=== PATIENT | male | born 1965 | race Caucasian/White ===

== ENCOUNTER 2023-07-08 12:57 | Emergency (ER) | payer BC, SELFPAY ==
[2023-07-08 13:01] VITALS: BP 167/102; PULSE 87; RESP 18; TEMP 36.6; O2SAT 98
--- NOTE | 2023-07-08 13:30 | DI.CT_ITS ---
Exam(s) CT ABDOMEN PELVIS WO EXAM: CT ABDOMEN PELVIS WO CLINICAL HISTORY: flank pain with hematuria. TECHNIQUE: Imaging Protocol: Axial computed tomography images with coronal and sagittal reformatted images were created and reviewed CONTRAST MATERIAL: Intravenous: none Oral: None COMPARISON: No exams were available for comparison FINDINGS: VISUALIZED LUNG BASES: There is a 3 millimeter pleural base nodule in the posterior basal segment of the right lower lobe. No pleural effusions.. ABDOMEN: There is no ascites. LIVER: There are no obvious focal hepatic lesions evident of this noninfused study. GALLBLADDER/BILIARY: No obvious gallbladder pathology. CBD is not dilated. PANCREAS: No evidence of pancreatic mass nor dilatation of the pancreatic duct. SPLEEN: Spleen is not enlarged. No obvious intrasplenic lesions. ADRENALS: There are no significant adrenal masses. KIDNEYS:No cysts evident. There is a tiny punctate 1 millimeter calculus in the lower pole calyx of t he left kidney (series 3/image 29). An there are 2 benign cysts in the lateral cortex of the right k idney measuring up to 1.5 cm size. No solid masses. No calculi in the right kidney. No hydronephro sis nor hydroureter on either side. However, there is a concerning mass in the urinary bladder, pred ominantly left-sided highly suspicious for neoplasm. This appears to involve the region of the urete rovesical junctions but there is no dilatation of the ureters.. ABDOMINAL AORTA: Peripherally calcified but not enlarged. LYMPH NODES: There is no retroperitoneal nor paraaortic adenopathy. ABDOMINAL WALL: No evidence of significant anterior abdominal wall nor inguinal hernia. GI: There is no evidence of bowel obstruction, free air, nor abscess. PELVIS: LYMPH NODES: There is no intrapelvic nor inguinal adenopathy. GI: No evidence of appendicitis.No evidence of sigmoid diverticulitis. URINARY BLADDER: Large neoplastic mass evident REPRODUCTIVE: Prostate size upper normal. OSSEOUS: No fractures. No osseous lesions. Moderate disc space narrowing L4-5 level. IMPRESSION: 1. 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 Cystoscopy recommended. 2. No hydronephrosis nor hydroureter. Tiny punctate 1 millimeter calculus is incidentally noted in l ower pole calyx of the left kidney. RADIATION DOSE DELIVERED: 642.45mGy.cm Total DLP DATA REPOSITORY: All CT scans at this facility are submitted to the National Radiology Data Registry (NRDR) Dose Index Registry (DIR) with the [employer] (ACR). RADIATION OPTIMIZATION: All CT scans at this facility use at least one of these dose optimization te chniques: automated exposure control; mA and/or kV adjustment per patient size (includes targeted exa ms where dose is matched to clinical indication); or iterative reconstruction.
[2023-07-08 14:02] LABS: Bilirubin Negative (Negative); Blood Large (Negative); Clarity Clear (Clear); Glucose Negative (Negative); Ketones Negative (Negative); Leukocyte Esterase Negative (Negative); Nitrite Negative (Negative); Urobilinogen 0.2 mg/dL (Up to 0.2); pH 5.5 (5-8)
[2023-07-08 14:09] LABS: Bacteria Negative HPF (Negative); C & S Indicated? No; Casts Negative LPF (Negative); Crystals Negative HPF (Negative); Epithelial Cells Rare HPF (Negative); Mucus Negative (Negative); RBC 20-50 HPF (0-2); WBC 0-2 HPF (0-5)
[2023-07-08 14:21] LABS: Abs Immature Grans 0.01 10^3/uL (0.0-0.06); Absolute Basophil Count 0.13 10^3/uL (0.0-0.2); Absolute Eosinophil Count 0.25 10^3/uL (0.0-0.7); Absolute Lymphocyte Count 3.31 10^3/uL (1.2-3.4); Absolute Monocyte Count 0.59 10^3/uL (0.1-0.8); Absolute Neutrophil Count 4.86 10^3/uL (1.2-6.7); Basophils % 1.4; Eosinophils % 2.7; HCT 44.6 % (40.0-50.0); HGB 14.9 g/dL (13.5-17.5); Immature Grans % 0.1; Lymphocytes % 36.2; MCH 29.4 pg (27.0-33.0); MCHC 33.4 % (32.0-36.0); MCV 88 fL (80-95); MPV 9.5 fL (8.0-11.0); Monocytes % 6.4; Neutrophils % 53.2; Platelet Count 311 10^3/uL (130-400); RBC 5.07 10^6/uL (4.36-5.78); RDW 14.1 % (11.8-14.1); RDW-SD 45.2 fL; WBC 9.15 10^3/uL (4.4-10.8)
[2023-07-08 14:39] VITALS: BP 167/102; PULSE 87; RESP 18; TEMP 36.6
[2023-07-08 14:41] LABS: ALT 17 U/L (16-63); AST 14 U/L (15-37); Albumin 3.7 g/dL (3.4-5.0); Alkaline Phosphatase 71 U/L (46-116); BUN 14 mg/dL (7-18); Bilirubin, Total 0.4 mg/dL (0.2-1.0); CREATININE 0.9 mg/dL (0.70-1.30); Calcium 9.1 mg/dL (8.5-10.1); Chloride 104 mmol/L (98-107); Estimated GFR 99.62 (mL/min/1.73m2); Glucose 99 mg/dL (74-106); Potassium 3.8 mmol/L (3.5-5.1); Sodium 141 mmol/L (136-145); Total Protein 7.8 g/dL (6.4-8.2)
--- NOTE | 2023-07-08 15:49 | W.ED.GENAD ---
Discharge Plan Disposition Patient Disposition: Home Discharge Details Clinical Impression: Hematuria, Bladder mass Primary Care Provider: Unknown,Unknown ED Provider: Mary Jo Lewis Discharge Instructions Instructions: Hematuria (ED) Additional Instructions: Please call urology tomorrow if you do not hear by 10:00 from the office It is very important that you have this bladder mass reassessed Please continue to keep yourself hydrated, if you are having difficulty urinating, fever, weakness, or any additional concerns arise please return immediately for reassessment Discharge Data Discharge Date/Time-TO BE ENTERED AT DEPARTURE: 07/08/23 16:38 HPI General Date/Time Provider Initiated Documentation: 07/08/23 12:58. HPI Narrative: This 58-year-old male presents with report of hematuria intermittently for the past several days. Patient denies any weight loss or night sweats. 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 He smokes tobacco daily. The hematuria has been present for approximately 3 weeks intermittently per patient. He feels as though he is able to empty his bladder completely although is urinating more frequently per patient. Denies known history of cancer. Related Data Allergies Allergy/AdvReac Type Severity Reaction Status Date / Time No Known Allergies Allergy Unverified 07/08/23 13:05 General Stated Complaint: Urinary VITO: 3 Exam Narrative Exam Narrative: 58-year-old male, alert and oriented, no acute distress, no reproducible back pain, no reproducible abdominal pain, pupils equal round reactive to light and accommodation, cardiac rate rhythm regular, lungs clear to auscultation bilaterally, no peripheral edema no pallor appreciated Course Vital Signs Vital signs: Vital Signs Temperature 36.6 C 07/08/23 13:01 Pulse 87 07/08/23 13:01 Respiratory Rate 18 07/08/23 13:01 Blood Pressure 167/102 H 07/08/23 13:01 Pulse Oximetry 98 07/08/23 13:01 Temperature 36.6 C 07/08/23 14:39 Temperature Source Skin 07/08/23 13:01 Pulse 87 07/08/23 14:39 Respiratory Rate 18 07/08/23 14:39 Respiratory Effort Normal 07/08/23 13:04 Blood Pressure 167/102 H 07/08/23 14:39 Blood Pressure Position Sitting 04/28/24 14:39 Pulse Oximetry 98 07/08/23 13:01 Oxygen Delivery Method Room Air 07/08/23 14:39 Oxygen Flow Rate 0 07/08/23 13:01 Lab/Test Results Lab/Test Results: Laboratory Tests Range/Units 07/08/23 07/08/23 13:45 14:15 WBC (4.4-10.8) 10^3/uL 9.15 RBC (4.36-5.78) 10^6/uL 5.07 Hgb (13.5-17.5) g/dL 14.9 Hct (40.0-50.0) % 44.6 MCV (80-95) fL 88 MCH (27.0-33.0) pg 29.4 MCHC (32.0-36.0) % 33.4 RDW (11.8-14.1) % 14.1 Plt Count (130-400) 10^3/uL 311 MPV (8.0-11.0) fL 9.5 Immature Gran % 0.1 Neutrophils % 53.2 Lymphocytes % 36.2 Monocytes % 6.4 Eosinophils % 2.7 Basophils % 1.4 Nucleated RBC % (0.0-0.3) % 0.0 Absolute Neutrophils (1.2-6.7) 10^3/uL 4.86 Absolute Lymphocytes (1.2-3.4) 10^3/uL 3.31 Absolute Monocytes (0.1-0.8) 10^3/uL 0.59 Absolute Eosinophils (0.0-0.7) 10^3/uL 0.25 Absolute Basophils (0.0-0.2) 10^3/uL 0.13 Sodium (136-145) mmol/L 141 Potassium (3.5-5.1) mmol/L 3.8 Chloride (98-107) mmol/L 104 Carbon Dioxide (21.0-32.0) mmol/L 27.0 Anion Gap (3-11) mmol/L 10.0 BUN (7-18) mg/dL 14 Creatinine (0.70-1.30) mg/dL 0.9 Est GFR (CKD-EPI 2020) (mL/min/1.73m2) 99.62 Glucose (74-106) mg/dL 99 Calcium (8.5-10.1) mg/dL 9.1 Total Bilirubin (0.2-1.0) mg/dL 0.4 AST (15-37) U/L 14 L ALT (16-63) U/L 17 Alkaline Phosphatase (46-116) U/L 71 Total Protein (6.4-8.2) g/dL 7.8 Albumin (3.4-5.0) g/dL 3.7 Urine Color (Yellow) Yellow Urine Clarity (Clear) Clear Urine pH (5-8) 5.5 Ur Specific [place] (1.005-1.025) 1.010 Urine Protein (Neg-Trace) mg/dL 30 H Urine Ketones (Negative) mg/dL Negative Urine Blood (Negative) Large H Urine Nitrite (Negative) Negative Urine Bilirubin (Negative) Negative Urine Urobilinogen (Up to 0.2) mg/dL 0.2 Ur Leukocyte Esterase (Negative) Negative Urine RBC (0-2) HPF 20-50 H Urine WBC (0-5) HPF 0-2 Ur Epithelial Cells (Negative) HPF Rare Urine Crystals (Negative) HPF Negative Urine Bacteria (Negative) HPF Negative Urine Casts (Negative) LPF Negative Urine Mucus (Negative) Negative Ur Culture Indicated? No Urine Glucose (Negative) mg/dL Negative Medical Decision Making Alert and oriented 58-year-old male presenting with report of gross hematuria. Also reports some back pain which she has had intermittently in the past, no CVA tenderness or abdominal tenderness, alert and oriented Patient is in no acute distress and is not experiencing gross hematuria at this time, he is able to urinate without difficulty He had CT abdomen and pelvis which shows a bladder mass but is otherwise hemodynamically stable, he will need urgent reassessment with urology secondary to concern for mass He is placed on referral for Dr. Odom tomorrow Patient will be discharged home in stable condition with stable vitals hemodynamically stable Quality:SDOH Health Related Social Needs: No Data to Display PFSH All Active Problems (Updated 07/08/23 @ 16:19 by MARIA VICTORIA Wilson) Bladder mass (Acute) Hematuria (Acute) Social History Smoking/Tobacco Use Status: Current every day Smoking risk assessment performed?: Yes Alcohol Intake: current Alcohol Intake frequency: holidays/special occasions only Substance use type: does not use
--- NOTE | 2023-07-08 15:50 | DI.VRAD_ITS ---
PROCEDURE INFORMATION: Exam: CT Abdomen And Pelvis Without Contrast Exam date and time: 07/08/2023 2:30 PM Age: 58 years old Clinical indication: Other: Flank pain with hematuria TECHNIQUE: Imaging protocol: Computed tomography of the abdomen and pelvis without contrast. COMPARISON: No relevant prior studies available. FINDINGS: Lungs: Mild cystic changes in the right lower lobe of the lung, lingula, probably due to emphysema. There is a dominant 3.9 x 3.8 cm cystic lesion in the right lower lobe with thin wall and internal septation. Mild ground-glass densities in the bilateral lung bases may represent dependent atelectasis. Liver: Normal. No mass. Gallbladder and bile ducts: Normal. No calcified stones. No ductal dilation. Pancreas: Normal. No ductal dilation. Spleen: Normal. No splenomegaly. Adrenal glands: Normal. No mass. Kidneys and ureters: There is a 1.5 cm cyst in the posterior right lower pole kidney. There is a 0.8 cm hypodense lesion in the posterior right mid kidney and may represent a cyst. Stomach and bowel: Unremarkable. No obstruction. No mucosal thickening. Appendix: No evidence of appendicitis. Intraperitoneal space: Unremarkable. No free air. No significant fluid collection. Vasculature: Unremarkable. No abdominal aortic aneurysm. Lymph nodes: Unremarkable. No enlarged lymph nodes. Urinary bladder: There is 6.6 x 2.7 cm axial asymmetric masslike bladder wall thickening along the left lateral wall of the urinary bladder Reproductive: Prostate is mildly enlarged. Bones/joints: Unremarkable. No acute fracture. Soft tissues: Unremarkable. IMPRESSION: 1. Asymmetric masslike nodular thickening of the left side of the urinary bladder wall suspicious of neoplasm. Cystoscopic evaluation may be considered. CT urogram may also be considered. 2. No hydronephrosis or nephrolithiasis. 3. No definite acute intra-abdominal abnormalities. Dictated and Authenticated by: Dharmesh Arnold MD. Ordering:ALAN Camargo MD
--- NOTE | 2023-07-08 16:20 | NUR.NOTE ---
Referral faxed to [facility] for bladder mass/gross hematuria, appt within the next 24 hrs. Nursing Note:
[2023-07-08 16:38] VITALS: BP 188/94; PULSE 66; RESP 14; O2SAT 100
== END 2023-07-08 16:38 | disposition home or self-care (01) ==
PROVIDERS: Emergency Medicine; Emergency Provider Physician Assistant
DX: D49.4 Neoplasm of unspecified behavior of bladder (principal); R31.9 Hematuria, unspecified; F17.210 Nicotine dependence, cigarettes, uncomplicated
CPT/HCPCS: 36415; 80053; 99284; 74176; 81003; 81015; 85025

== ENCOUNTER 2023-07-30 07:21 | Observation (INO) | payer BC, SELFPAY ==
[2023-07-30] VITALS (19 sets, daily range): BP systolic 105–147; BP diastolic 61–86; PULSE 53–93; RESP 14–31; TEMP 36–37.5; O2SAT 95–99; BMI 22.4
[2023-07-30] MEDS: Lactated Ringers 1,000 ML 80 ML IV ×2 (08:10→12:47)
--- NOTE | 2023-07-30 08:26 | ANES.PREOP_ITS ---
General Info Date of Service Date Performed: 07/30/23 Height: 5 ft 10 in Weight: 70.9 kg Body Mass Index (BMI): 22.4 Surgical Procedure: Operation Date: 07/30/23 09:25 Proposed Procedure Side Surgeon p Cysto, Transurethral Resection Bladder Tumor Lopez Odom MD Meds Allergies and Home Medications Allergies Allergy/AdvReac Type Severity Reaction Status Date / Time No Known Allergies Allergy Verified 07/30/23 07:40 Home Medication Medication Instructions Recorded Unknown [No Known Home Meds] 07/12/23 Current Visit Medications: Current Medications Generic Name Dose Route Start Last Admin Trade Name Freq PRN Reason Stop Dose Admin Ringer's Solution 1,000 mls @ 80 mls/hr 07/30/23 06:00 07/30/23 08:10 IV 07/30/23 23:59 80 mls/hr INFUSION HAYDEN Administration Cefazolin Sodium/Dextrose 2 gm in 50 mls @ 100 mls/hr 07/30/23 06:00 Ancef Duplex IVPB 07/30/23 23:59 PREOP HAYDEN IV Miscellaneous Supplies 1 each 07/30/23 06:00 Iv Access IV 07/30/23 23:59 DIRECTED HAYDEN Sodium Chloride 0 ml 07/30/23 06:00 Normal Saline Flush 10 Ml Syr IV 07/30/23 23:59 PRN PRN Sodium Chloride 0 ml 07/30/23 06:00 Normal Saline 10 Ml Vial IJ 07/30/23 23:59 DIRECTED PRN Sterile Water 0 ml 07/30/23 06:00 Water,Injection,Sterile 10 Ml Vial IJ 07/30/23 23:59 DIRECTED PRN PFSH Active Problems Active Problems: Problem Status Onset Code Bladder mass N32.89 Hematuria R31.9 Medical History Medical History (Updated 07/30/23 @ 08:46 by Lopez Odom MD) Hypertension Surgical History Surgical History Hx of shoulder surgery right History of colonoscopy Hx of appendectomy Tobacco Smoking/Tobacco Use Status: Current every day Tobacco Type: cigarettes Alcohol Alcohol Intake: current Alcohol intake frequency: holidays/special occasions only Substance Use Substance use: Never Substance use type: does not use Vital Signs and Lab Results Vital Signs Most Recent Vital Signs in EMR: Most Recent Vital Signs Temp Pulse Resp BP Pulse Ox 36.6 C 82 20 147/86 H 98 07/30/23 07:25 07/30/23 07:25 07/30/23 07:25 07/30/23 07:25 07/30/23 07:25 Lab Results Blood Type / Crossmatch: No Data to Display Complete Blood Count: White Blood Count 9.15 10^3/uL (4.4-10.8) 07/08/23 14:15 Red Blood Count 5.07 10^6/uL (4.36-5.78) 07/08/23 14:15 Hemoglobin 14.9 g/dL (13.5-17.5) 07/08/23 14:15 Hematocrit 44.6 % (40.0-50.0) 07/08/23 14:15 Platelet Count 311 10^3/uL (130-400) 07/08/23 14:15 Complete Metabolic Panel: Sodium 141 mmol/L (136-145) 07/08/23 14:15 Potassium 3.8 mmol/L (3.5-5.1) 07/08/23 14:15 Chloride 104 mmol/L (98-107) 07/08/23 14:15 Carbon Dioxide 27.0 mmol/L (21.0-32.0) 07/08/23 14:15 BUN 14 mg/dL (7-18) 07/08/23 14:15 Creatinine 0.9 mg/dL (0.70-1.30) 07/08/23 14:15 Est GFR (CKD-EPI 2020) 99.62 (mL/min/1.73m2) 07/08/23 14:15 Calcium 9.1 mg/dL (8.5-10.1) 07/08/23 14:15 Albumin 3.7 g/dL (3.4-5.0) 07/08/23 14:15 Glucose 99 mg/dL (74-106) 07/08/23 14:15 Liver Function Panel: Alanine Aminotransferase (ALT/SGPT) 17 U/L (16-63) 07/08/23 14: 15 Aspartate Amino Transf (AST/SGOT) 14 U/L (15-37) L 07/08/23 14: 15 Coagulation Panel: No Data to Display Cardiac Panel: No Data to Display Arterial Blood Gas: No Data to Display Venous Blood Gas: No Data to Display Pancreas Panel: No Data to Display Thyroid Panel: No Data to Display Infectious Disease: No Data to Display Blood Cultures: No Data to Display Toxicology Panel: No Data to Display Anesthesia Assessment and Plan Anesthesia History Personal History: No History of Anesthesia Complications Family History: No Family History of Anesthesia Complications Exercise Tolerance Exercise Tolerance: Metabolic Equivalents>4 Pertinent Negatives Pertinent Negatives: No Symptoms of GERD, No Major Cardiovascular Symptoms or Complaints, No Major Pulmonary Symptoms or Complaints and No History of CVA/TIA Cardiac & Pulmonary Exam Cardiac Exam: Normal S1/S2 Heart Sounds Pulmonary Exam: Clear Bilateral Breath Sounds Cardiac and Pulmonary Comment:: Smoker, snores Implantable Cardiac Device Does patient have a Pacemaker or an ICD?: No Airway Exam Known Difficult Airway: No Mallampati Class: 1 Mouth Opening: Normal (> 3cm) Thyromental Distance: Greater than 3 cm Neck Range of Motion: Full ROM Neck Circumference: Normal Teeth Condition: Removable Dentures/Plates Upper, Removable Dentures/Plates Lower (at home) and Edentulous ASA Classification ASA Score: ASA 2 Emergency Case?: No NPO Status NPO Status: NPO Clears >2 hours, Solids >8 hours Anesthesia Plan Resuscitation Status: Full Code Anesthesia Technique: General Anesthesia Airway Planned: Endotracheal Tube Monitors Used: Standard Monitors Preoperative Comments:: Prefers general over spinal
--- NOTE | 2023-07-30 08:43 | W.PM.HP.N ---
Date of service: 07/30/23 Time of Service: 08:43 Assessment and Plan Assessment and plan (1) Bladder mass: Status: Acute Assessment and plan: For cystoscopy and TUR Bladder tumor. We have arranged for an admission following the procedure for bladder irrigation. His ultimate treatment will depend on the surgical pathology History of Present Illness History of Present Illness Chief Complaint: Bladder mass Narrative: This is a 58-year-old gentleman who presented to the emergency department recently left low back pain and gross hematuria. His evaluation included a noncontrast CT scan and a bladder mass was identified on the left side of the bladder wall. He presents now for transurethral resection of the mass. He has especially seen blood in the urine when he is active. He has not had any episodes of retention or large clot formation. Review of Systems Narrative: No fevers or chills No vision change or dysphasia No diabetes or thyroid dysfunction No shortness of breath, cough or hemoptysis No chest pain or palpitations No nausea, vomiting, hepatitis, ulcers, jaundice No seizures, strokes or peripheral neuropathy No bleeding disorders or anemia No gout PFSH All Active Problems (Updated 07/30/23 @ 08:46 by Lopez Odom MD) Bladder mass (Acute) Hematuria (Acute) Medical History (Updated 07/30/23 @ 08:46 by Lopez Odom MD) Hypertension Surgical History Hx of shoulder surgery right History of colonoscopy Hx of appendectomy Social History Smoking/Tobacco Use Status: Current every day Tobacco Type: cigarettes Tobacco: How many years used: 40 Smoking risk assessment performed?: Yes Alcohol Intake: current Alcohol Intake frequency: holidays/special occasions only Drug use: Never Substance use type: does not use Housing: house Additional Social history: [facility] Meds Allergies and Home Medications Allergies Allergy/AdvReac Type Severity Reaction Status Date / Time No Known Allergies Allergy Verified 07/30/23 07:40 Home Medications Medication Instructions Recorded Confirmed Type Unknown [No Known Home Meds] 07/12/23 07/27/23 History Exam Const General: cooperative Neck Neck: supple Resp Effort & Inspection: normal respiratory effort Auscultation: clear to auscultation bilaterally Cardio Rate: regular rate Rhythm: regular rhythm GI Palpation: soft and no masses Neuro General: patient alert, patient awake and patient oriented x3 Results Last Vital Signs Temp 36.6 C 07/30/23 07:25 Pulse 82 07/30/23 07:25 Resp 20 07/30/23 07:25 BP 147/86 H 07/30/23 07:25 Pulse Ox 98 07/30/23 07:25 Time Spent Time spent with Patient: <40 minutes Time was spent: other
[2023-07-30] MEDS: ceFAZolin 2 GM/50 ML BAG IVPB (09:18)
[2023-07-30] MEDS: Lidocaine 2% Jelly 6 ML SYR (09:35)
--- NOTE | 2023-07-30 10:00 | BLADDER_PTH ---
PATIENT: Joaquín Wolff LOC: U#:[id number] AGE/SX: 58/M ROOM: 206 RE07/30/[address]: Lopez Odom MD : [id number] BED: A DIS: 07/31/2023 SPEC #: [id number] RECD: 07/30/23 13:11 STATUS: CHAVA REQ #: [id number] OLIVIA: 07/30/23 10:[address]: Lopez Odom DEPT: Surgical Specimen RECD BY: Mary Jo Bowling ENTERED: 07/30/23 13:12 SP TYPE: Bladder OTHR DR: Wayne Hackett Tissues: 1 - BLADDER BIOPSY Procedures: GROSS AND MICRO LEVEL 4 Comments: [id number]
--- NOTE | 2023-07-30 11:01 | W.PM.OP ---
Date of service: 07/30/23 Time of Service: 11:01 Operative Note Operative Note DATE OF PROCEDURE: 07/30/23 PRE-OP DIAGNOSIS: Bladder mass POST-OP DIAGNOSIS: same PROCEDURE: Cystoscopy, TUR Bladder tumor (over 5 cm) SURGEON: Lopez Odom ANESTHESIA TYPE: Local By Surgeon and General LMA/ETT Refer to Anesthesia Record ESTIMATED BLOOD LOSS: 250 PATHOLOGY: other (bladder tumor) COMPLICATIONS: None Patient was transported to: PACU Patient's condition: stable Implants: 22 [place]onian hematuria catheter with 30 cc sterile water in balloon Indications: This is a 58-year-old gentleman who presented to the emergency department recently with intermittent gross hematuria and some low back pain. The back pain improved, but upon working up the gross hematuria, he was found to have a large bladder mass. He presents for cystoscopy and transurethral resection of his bladder mass Findings: Large (greater than 5 cm) papillary lesion extending across most of the left side of his bladder and up towards the dome Procedure Description: The patient was given preoperative IV antibiotics. He was brought to the operating room on 07/30/2023. After successful induction of general anesthesia, he was placed in the dorsal lithotomy position. His genitalia was prepped with Betadine. His genitalia was draped and 2% Xylocaine jelly was instilled into the urethra to act as a local anesthetic. A 22 [place]onian rigid cystoscope was then passed through the urethra into the bladder. The urethra and bladder were inspected with the 30 degree lens. The pendulous, bulbar and membranous urethra's appeared normal with no strictures. The prostatic urethra showed some lateral lobe enlargement but no papillary lesions on the prostatic mucosa. The bladder neck was entered and the bladder mucosa was inspected. The right side of the bladder appeared fairly normal in appearance. On the left side of the bladder there was a widespread carpet of papillary growths extending from the left trigone all the way up the left bladder wall to the dome. The tumor extended out toward the bladder neck. I then removed the cystoscope and passed a 24 [place] resectoscope sheath through the urethra into the bladder. Transurethral resection of the bladder tumor was performed using bipolar cautery. All resected tissue was evacuated and sent to pathology for permanent section. The resection site was cauterized using a button electrode. At the completion of the procedure, I did not visualize any remaining viable tumor. I did not visualize any arterial bleeding. The bladder was filled with irrigant and a 22 [place] hematuria catheter was passed through the urethra into the bladder. The catheter balloon was inflated with 30 cc of sterile water. Continuous bladder irrigation with saline was then begun. Bimanual examination revealed no fixation of the bladder to the pelvic sidewall. The patient tolerated the procedure well with no complications. He was taken to the recovery room in stable condition.
[2023-07-30] MEDS: fentaNYL 100 MCG/2 ML VIAL IVP ×2 (12:20→12:52)
[2023-07-30] MEDS: Oxybutynin 5 MG TAB PO ×2 (12:28→18:43)
--- NOTE | 2023-07-30 12:38 | W.ANESPOSTOP ---
Postoperative Evaluation Date, Time and Location Date Performed: 07/30/23 Time Performed: 12:38 Patient Location: PACU Vital Signs Most Recent Imported Vital Signs: Most Recent Vital Signs Temp Pulse Resp BP Pulse Ox 36.4 C L 56 L 27 H 133/85 98 07/30/23 12:05 07/30/23 12:05 07/30/23 12:05 07/30/23 12:05 07/30/23 12:05 Pain Score Most Recent Pain Score: Most Recent Pain Score Pain Level 6 07/30/23 12:05 Assessment Mental Status: Awake (Alert & Oriented to Patient Baseline) Airway and Respiratory Function: Patent airway with normal (patient baseline) respiratory exam Cardiovascular Function: Hemodynamically Stable Hydration Status: Adequately Hydrated Nausea & Vomiting: No Nausea or Vomiting Pain: Pain is Moderate or Severe Postoperative Pain Management: Pain being addressed with medication (will be inpatient for bladder irrigation) Peripheral Nerve Block: Patient did not receive a nerve block
[2023-07-30] MEDS: HYDROmorphone 2 MG/ML SYR IVP ×3 (13:59→19:10)
[2023-07-30] MEDS: Lactated Ringers 1,000 ML 125 ML IV ×2 (14:00→22:55)
[2023-07-30] MEDS: Normal Saline Flush 10 ML SYR IVP ×2 (14:00→19:10)
[2023-07-30] MEDS: ceFAZolin 1 GM/50 ML BAG IVPB (17:05)
[2023-07-30] MEDS: Acetaminophen 325 MG TAB 650 MG PO (17:11)
[2023-07-30] MEDS: Ondansetron 4 MG/2 ML VIAL IVP (19:26)
[2023-07-30] MEDS: Docusate Sodium 100 MG CAP PO (20:11)
[2023-07-30] MEDS: traMADol 50 MG TAB PO (20:48)
[2023-07-31] MEDS: Oxybutynin 5 MG TAB PO ×3 (00:22→12:28)
[2023-07-31] MEDS: Acetaminophen 325 MG TAB 650 MG PO ×2 (00:22→13:39)
[2023-07-31] MEDS: ceFAZolin 1 GM/50 ML BAG IVPB (00:22)
[2023-07-31] MEDS: Lactated Ringers 1,000 ML 125 ML IV (05:59)
[2023-07-31 06:29] LABS: Anion Gap 5.5 mmol/L (3-11); BUN 20 mg/dL (7-18); CO2 23.5 mmol/L (21.0-32.0); CREATININE 1.7 mg/dL (0.70-1.30); Calcium 7.9 mg/dL (8.5-10.1); Chloride 106 mmol/L (98-107); Estimated GFR 46.44 (mL/min/1.73m2); Glucose 158 mg/dL (74-106); Potassium 4.2 mmol/L (3.5-5.1); Sodium 135 mmol/L (136-145)
[2023-07-31 06:52] LABS: Abs Immature Grans 0.08 10^3/uL (0.0-0.06); Absolute Monocyte Count 1.39 10^3/uL (0.1-0.8); Basophils % 0.1 %; Eosinophils % 0.1 %; HCT 31.1 % (40.0-50.0); HGB 10.7 g/dL (13.5-17.5); Immature Grans % 0.4 %; Lymphocytes % 16.3 %; MCH 30.1 pg (27.0-33.0); MCHC 34.4 % (32.0-36.0); MCV 87 fL (80-95); MPV 10.5 fL (8.0-11.0); Monocytes % 6.9 %; Neutrophils % 76.2 %; Platelet Count 247 10^3/uL (130-400); RBC 3.56 10^6/uL (4.36-5.78); RDW 14.5 % (11.8-14.1); RDW-SD 47.1 fL; WBC 20.09 10^3/uL (4.4-10.8)
[2023-07-31 06:58] LABS: Absolute Basophil Count 0.02 10^3/uL (0.0-0.2); Absolute Eosinophil Count 0.02 10^3/uL (0.0-0.7); Absolute Lymphocyte Count 3.27 10^3/uL (1.2-3.4); Absolute Neutrophil Count 15.31 10^3/uL (1.2-6.7)
[2023-07-31 07:12] VITALS: BP 117/72; PULSE 63; RESP 17; TEMP 37; O2SAT 99
[2023-07-31] MEDS: Docusate Sodium 100 MG CAP PO (08:10)
[2023-07-31] MEDS: traMADol 50 MG TAB PO (09:26)
--- NOTE | 2023-07-31 12:24 | DSE_ITS ---
Date of service: 07/31/23 Time of Service: 12:25 DS: Diagnosis Discharge Diagnosis (1) Bladder mass: Status: Acute Discharge Plan Disposition Patient Disposition: Home Condition: Stable Discharge Details Reason For Visit: Cystoscopy and TURBT Admit Date/Time: 07/30/23 07:21 Admit Provider: Lopez Odom Attending Provider: Lopez Odom Primary Care Provider: Wayne Hackett Hospital Course Hospital Course: The patient was brought to the operating room on 07/2023 and he underwent cystoscopy. We identified a large papillary mass within the bladder. We performed transurethral resection of his bladder tumor. Following the procedure, an irrigating catheter was placed. Continuous bladder irrigation was maintained for 24 hours. The patient had quite a few bladder spasms following the procedure but they were ultimately controlled with oral oxybutynin. By postoperative day #1, his spasms were controlled, he no longer required continuous bladder irrigation. He was able to tolerate oral medications and diet. He is being discharged to home with his catheter in place. Home Meds and New Rx's Prescriptions: New tramadol 50 mg Tablet 50 mg PO Q6H PRN PRNQty: 20 0RF sulfamethoxazole-trimethoprim [Bactrim DS] 800-160 mg tablet 1 tab PO QHS Qty: 7 0RF oxybutynin chloride 5 mg tablet 5 mg PO Q6H PRN (Reason: bladder spasms) Qty: 30 1RF Discharge Instructions Additional Instructions: Olsen catheter to leg bag or large drainage bag Follow-up in 1 week for catheter removal. Hopefully we will have the surgical pathology results back by then and can discuss them as well. If the surgical pathology results are not yet available, we will need a different appointment to discuss the pathology No lifting over 10 pounds Activity:: No lifting over 10 pounds Equipment/Supplies:: Olsen catheter to leg bag Diet:: As Tolerated Discharge Orders Discharge Orders: Discharge Order (Routine); Ordered 07/31/23 Ordered By: Lopez Odom DS: Summary Time Spent with Patient providing and/or coordinating discharge services: Less than 30 minutes Status at Discharge Functional status at discharge: independent ambulation Overall status at discharge: patient is progressing back to baseline Mental Status: mental status grossly normal Speech and Movement: speech and movement normal Mood: congruent mood Affect: normal affect Quality:SDOH Health Related Social Needs: No Data to Display Exam Narrative Exam Narrative: At the time of discharge, the patient appears comfortable. He does not appear septic or toxic His vital signs are documented elsewhere in the chart His chest wall motion is normal. He does not appear short of breath at rest. His abdomen is soft with no peritoneal signs Olsen catheter is in place and is draining pink-tinged urine with no clots He is awake and alert Psych Mental Status: mental status grossly normal Speech and Movement: speech and movement normal Mood: congruent mood Affect: normal affect DS: Data Vitals/I&O Vitals and I&O: Vital Signs Temperature 37.0 C 07/31/23 07:12 Temperature Source Tympanic 07/31/23 07:12 Pulse 63 07/31/23 07:12 Pulse Rhythm Regular 07/31/23 08:24 Respiratory Rate 17 07/31/23 07:12 Respiratory Effort Normal 07/31/23 08:24 Respiratory Depth Normal 07/31/23 08:24 Respiratory Pattern Normal 07/31/23 08:24 Blood Pressure 117/72 07/31/23 07:12 Pulse Oximetry 99 07/31/23 07:12 Respiratory End-tidal CO2 33 07/30/23 13:04 Oxygen Delivery Method Room Air 07/31/23 07:12 Oxygen Flow Rate 0 07/31/23 07:12 Pain Level 4 07/31/23 09:26 Intake & Output 07/30/23 07/31/23 07/31/23 23:59 11:59 23:59 Intake Total 2647.333 / 3397.333 1589.166 / 1589.166 Output Total 350 / 350 Balance 2647.333 / 3147.333 1239.166 / 1239.166 Weight 73.028 kg Intake: IV 1347.333 / 2097.333 1229.166 / 1229.166 Oral 1300 / 1300 360 / 360 Output: Urine 350 / 350 Other: Urine Color [place] Urine Appearance Clots Clear Comment 3 way continuous irrigation Emesis Description None Voiding Methods Indwelling Catheter Data Completed and Pending Labs on day of discharge: Labs from last 24 hours 07/31/23 07/31/23 06:29 06:05 WBC 20.09 H Cancelled RBC 3.56 L Cancelled Hgb 10.7 L Cancelled Hct 31.1 L Cancelled MCV 87 Cancelled MCH 30.1 Cancelled MCHC 34.4 Cancelled RDW 14.5 H Cancelled Plt Count 247 Cancelled MPV 10.5 Cancelled Immature Gran % 0.4 Cancelled Neutrophils % 76.2 Cancelled Band Neutrophils % Cancelled Lymphocytes % 16.3 Cancelled Atypical Lymphs % Cancelled Monocytes % 6.9 Cancelled Eosinophils % 0.1 Cancelled Basophils % 0.1 Cancelled Metamyelocytes % Cancelled Myelocytes % Cancelled Promyelocytes % Cancelled Other Cells % Cancelled Nucleated RBC % 0.0 Cancelled Absolute Neutrophils 15.31 H Cancelled Absolute Lymphocytes 3.27 Cancelled Absolute Monocytes 1.39 H Cancelled Absolute Eosinophils 0.02 Cancelled Absolute Basophils 0.02 Cancelled RBC Morphology Cancelled Polychromasia Cancelled Hypochromasia Cancelled Poikilocytosis Cancelled Basophilic Stippling Cancelled Anisocytosis Cancelled Microcytosis Cancelled Macrocytosis Cancelled Spherocytes Cancelled Tear Drop Cells Cancelled Ovalocytes Cancelled Stomatocytes Cancelled Ramachandran-[place] Bodies Cancelled Trang Cells/Echinocytes Cancelled Acanthocytes (Spur) Cancelled Schistocytes Cancelled Sodium 135 L Potassium 4.2 Chloride 106 Carbon Dioxide 23.5 Anion Gap 5.5 BUN 20 H Creatinine 1.7 H Est GFR (CKD-EPI 2020) 46.44 Glucose 158 H Calcium 7.9 L PFSH All Active Problems Bladder mass (Acute) Hematuria (Acute) Medical History Hypertension Surgical History Hx of shoulder surgery right History of colonoscopy Hx of appendectomy Social History Smoking/Tobacco Use Status: Current every day Tobacco Type: cigarettes Tobacco: How many years used: 40 Smoking risk assessment performed?: Yes Alcohol Intake: current Alcohol Intake frequency: holidays/special occasions only Drug use: Never Substance use type: does not use Housing: house Additional Social history: UTAP Time Spent with Patient Time Spent with Patient: <45 minutes Time was spent: preparing to see the patient(eg.review tests), obtaining and/or reviewing separately otained hiistory, referring, communicating with other health career development coordinator/teacher and counseling the patient
--- NOTE | 2023-07-31 12:36 | W.PM.PROGNOT ---
Date of Service Date of service: 07/31/23 Time of Service: 08:00 Assessment and Plan Assessment and plan (1) Bladder mass: Status: Acute Assessment and plan: I would discontinue his bladder irrigation this morning and I have encouraged the patient to get up and walk around this morning. We will see if he is able to tolerate oral medications and nutrition. If he continues to need IV replacement or he needs continued bladder irrigation, we will plan on keeping him here in the hospital 1 additional day. If he is able to tolerate the medications and does not require bladder irrigation we can probably discharge him later today. Subjective Subjective Interval history since last seen: The patient had quite a few bladder spasms overnight but things seem to be coming under control with the use of oxybutynin. He has not had any clot retention. When the spasms would be severe, he would have nausea and vomiting. He has no such nausea currently and was able to tolerate oral nutrition and medications this morning with no problems Exam Narrative Exam Narrative: He looks well. He does not appear septic or toxic His Olsen catheter is draining clear outflow with his bladder irrigation at a slow rate He is awake and alert Objective Last Vital Signs Temp 37.0 C 07/31/23 07:12 Pulse 63 07/31/23 07:12 Resp 17 07/31/23 07:12 BP 117/72 07/31/23 07:12 Pulse Ox 99 07/31/23 07:12 Laboratory Results - last 24 hr 07/31/23 07/31/23 06:05 06:29 WBC Cancelled 20.09 H RBC Cancelled 3.56 L Hgb Cancelled 10.7 L Hct Cancelled 31.1 L MCV Cancelled 87 MCH Cancelled 30.1 MCHC Cancelled 34.4 RDW Cancelled 14.5 H Plt Count Cancelled 247 MPV Cancelled 10.5 Immature Gran % Cancelled 0.4 Neutrophils % Cancelled 76.2 Band Neutrophils % Cancelled Lymphocytes % Cancelled 16.3 Atypical Lymphs % Cancelled Monocytes % Cancelled 6.9 Eosinophils % Cancelled 0.1 Basophils % Cancelled 0.1 Metamyelocytes % Cancelled Myelocytes % Cancelled Promyelocytes % Cancelled Other Cells % Cancelled Nucleated RBC % Cancelled 0.0 Absolute Neutrophils Cancelled 15.31 H Absolute Lymphocytes Cancelled 3.27 Absolute Monocytes Cancelled 1.39 H Absolute Eosinophils Cancelled 0.02 Absolute Basophils Cancelled 0.02 RBC Morphology Cancelled Polychromasia Cancelled Hypochromasia Cancelled Poikilocytosis Cancelled Basophilic Stippling Cancelled Anisocytosis Cancelled Microcytosis Cancelled Macrocytosis Cancelled Spherocytes Cancelled Tear Drop Cells Cancelled Ovalocytes Cancelled Stomatocytes Cancelled Ramachandran-[place] Bodies Cancelled [place] Cells/Echinocytes Cancelled Acanthocytes (Spur) Cancelled Schistocytes Cancelled Sodium 135 L Potassium 4.2 Chloride 106 Carbon Dioxide 23.5 Anion Gap 5.5 BUN 20 H Creatinine 1.7 H Est GFR (CKD-EPI 2020) 46.44 Glucose 158 H Calcium 7.9 L Time Spent with Patient Time Spent with Patient: <25 minutes Time was spent: preparing to see the patient(eg.review tests), obtaining and/or reviewing separately otained hiistory and other
== END 2023-07-31 14:11 | disposition home or self-care (01) ==
LOC: MS 14:03 → PDS 19:31 → MS 19:31
PROVIDERS: Admitting Provider Urology; PCP Family Medicine; Visit Provider Urology
PROC: 0TBB8ZZ Excision of Bladder, Via Natural or Artificial Opening Endoscopic (ICD-10-PCS; CPT 52240; principal; 2023-07-30 09:15)
DX: C67.9 Malignant neoplasm of bladder, unspecified (principal); R31.0 Gross hematuria; I10 Essential (primary) hypertension; M54.50 Low back pain, unspecified
CPT/HCPCS: 52240; 36415; 80048; 88305; 85025; G0378; J0690; J1100; J1170; J1885; J2371; J2405; J2704; J3010

== ENCOUNTER 2023-08-01 16:17 | Inpatient (IN) | payer BC, SELFPAY ==
[2023-08-01 16:20] VITALS: BP 174/108; PULSE 96; RESP 16; TEMP 37.5; O2SAT 100
--- NOTE | 2023-08-01 16:30 | DI.CT_ITS ---
Exam(s) CT ABDOMEN PELVIS W EXAM: CT ABDOMEN PELVIS W CLINICAL HISTORY: Left flank pain postop day 2. TECHNIQUE: Imaging Protocol: Axial computed tomography images with coronal and sagittal reformatted images were created and reviewed CONTRAST MATERIAL: Intravenous: Omnipaque 350 Contrast volume:100 ml Oral: No COMPARISON: CT CT ABDOMEN PELVIS WO from 07/08/2023 FINDINGS: ABDOMEN and PELVIS: Lung Bases: Atelectasis, scarring and cystic changes. Liver: Normal density. No suspicious mass. Gallbladder and biliary tract: No radiodense calculus. No biliary dilation. Pancreas: Normal density. No abnormal calcifications or inflammatory process. No evidence of mass. Spleen: Normal. Kidneys: Normal size, contour and axis. 1 millimeter stone lower pole left kidney. [id number] left hydronephrosis. No ureteral calculi. Delayed not left nephrogram. No definite findings to castro ggest pyelonephritis. Tiny bilateral renal cysts. No right hydronephrosis. No suspicious masses se en. Adrenal glands: No masses seen. Vasculature: Abdominal aorta non-dilated. Atherosclerotic changes. Soft tissues: Unremarkable. Bladder: Decompressed by Olsen catheter. Not well evaluated. Small amount of high-density material could represent hemorrhage. Bowel: Large quantity of stool in the right side of the colon. Little stool distally. No obstructio n. No bowel wall thickening. Peritoneal cavity: No ascites. No focal collection. No mesenteric inflammatory response. Bones: Unremarkable for age. Reproductive organs: Unremarkable. Lymph nodes: No pathologically enlarged lymph nodes. IMPRESSION:: Patient is status post bladder surgery. The bladder is now decompressed with a Olsen c atheter and is not well evaluated. Small amount of hemorrhage within bladder. There is new [id number] left hydronephrosis. There is no obstructing stone. Findings called to Dr. Domínguez, ER provider. RADIATION DOSE DELIVERED: 771.71mGy.cm Total DLP DATA REPOSITORY: All CT scans at this facility are submitted to the National Radiology Data Registry (NRDR) Dose Index Registry (DIR) with the [place] [employer] (ACR). RADIATION OPTIMIZATION: All CT scans at this facility use at least one of these dose optimization te chniques: automated exposure control; mA and/or kV adjustment per patient size (includes targeted exa ms where dose is matched to clinical indication); or iterative reconstruction.
[2023-08-01] MEDS: Ondansetron 4 MG/2 ML VIAL IVP (16:52)
[2023-08-01] MEDS: Normal Saline 500 ML IV ×2 (16:52→18:55)
[2023-08-01] MEDS: fentaNYL 100 MCG/2 ML VIAL 75 MCG IVP (16:52)
[2023-08-01 17:03] LABS: HCT 33.2 % (40.0-50.0); MCH 29.1 pg (27.0-33.0); MCHC 33.1 % (32.0-36.0); MCV 88 fL (80-95); MPV 10.2 fL (8.0-11.0); Platelet Count 269 10^3/uL (130-400); RBC 3.78 10^6/uL (4.36-5.78); RDW 14.1 % (11.8-14.1); RDW-SD 45.1 fL; WBC 19.55 10^3/uL (4.4-10.8)
[2023-08-01] MEDS: Omnipaque 350 MG/ML 100 ML BTL IJ (17:14)
[2023-08-01 17:15] LABS: ALT 17 U/L (16-63); AST 14 U/L (15-37); Albumin 3.2 g/dL (3.4-5.0); Alkaline Phosphatase 63 U/L (46-116); Anion Gap 12.4 mmol/L (3-11); BUN 15 mg/dL (7-18); Bilirubin, Total 0.7 mg/dL (0.2-1.0); CO2 23.6 mmol/L (21.0-32.0); CREATININE 1.6 mg/dL (0.70-1.30); Calcium 8.8 mg/dL (8.5-10.1); Chloride 97 mmol/L (98-107); Estimated GFR 49.94 (mL/min/1.73m2); Glucose 119 mg/dL (74-106); Potassium 3.4 mmol/L (3.5-5.1); Sodium 133 mmol/L (136-145)
[2023-08-01] MEDS: Normal Saline - Diluent 50 ML VIAL IJ (17:15)
[2023-08-01 17:17] LABS: Absolute Lymphocyte Count 3.52 10^3/uL (1.2-3.4); Absolute Monocyte Count 1.56 10^3/uL (0.1-0.8); Absolute Neutrophil Count 14.47 10^3/uL (1.2-6.7); Diff Comment Diff Reviewed; RBC Morphology Normal
--- NOTE | 2023-08-01 17:24 | ED.GENADUL_ITS ---
Discharge Plan Disposition Patient Disposition: Admit to [facility] Discharge Details Clinical Impression: Hematuria, Hydronephrosis of left kidney, MALLORY (acute kidney injury) Admit Date/Time: 08/01/23 20:06 Admit Provider: Joe Wilder Attending Provider: Joe Wilder Primary Care Provider: Wayne Hackett ED Provider: Jimbo Domínguez General Date/Time Provider Initiated Documentation: 08/01/23 16:28 . HPI Narrative: MDM This is an uncomfortable appearing normothermic and not tachycardic 58-year-old male 2 days status post bladder mass resection with hematuria and left flank pain along with hydronephrosis concerning for the possibility of surgical complication versus ureterolithiasis. Patient does not have acute urinary retention so no indication for bladder irrigation though he does have hematuria. No pain out of proportion to suggest necrotizing soft tissue infection. Patient lacks vascular risk factors and my suspicion for ruptured AAA is low. No testicular pain to suggest torsion. No shortness of breath so doubt PE. I considered sepsis however the patient was not febrile nor tachycardic so I did not draw blood cultures nor treat empirically with broad-spectrum antibiotics. No rash to abdomen to suggest zoster. No diarrhea to suggest mesenteric ischemia. No recent trauma to suggest hip fracture. No epigastric tenderness and not an alcoholic so I did not check a lipase as my suspicion was low for pancreatitis. Given no fevers I am not concerned for pyelonephritis. 5:23 PM CBC showing leukocytosis improved compared to prior. Mild normocytic anemia. Improved compared to prior. No leukocytosis. Mild MALLORY compared to June. Improve renal function today slightly compared to yesterday. Labs not consistent with DKA. No LFT abnormalities. Mild hypokalemia. Mild hyponatremia. Patient has improved pain status post 2 pushes of fentanyl and 6 mg of morphine. Given his significant requirements for pain medications anticipate he will require hospitalization. I attempted to page urology however unfortunately urology is not available at [facility] at the moment. I have a page out to urology at [facility]. CT scan confirms left-sided hydronephrosis. No obstructing stone. No AAA. Given hematuria will defer ketorolac at this point time. 6:20 PM I spoke with Dr. Wick from urology at [facility]. He felt that the patient had some postoperative obstruction which would likely resolve with time and Flomax along with watchful waiting. He said that his symptoms patient did not resolve in the next 1 to 2 days he might be a candidate for a urostomy tube or stent. He advised continued analgesia using opiates rather than ketorolac. 6:40 PM I updated the patient on plan of care. I spoke to Dr. Wilder who graciously agreed to accept the patient for hospitalization. 7:45 PM Nitrite negative urinalysis not consistent with UTI. Trace leukocytosis. Large hematuria. Chronic conditions affecting the care of the patient: N/A History obtained from an outside historian: Patient's External record review: No [facility] EMR records Medications: Fentanyl morphine Social determinants of health affecting disposition: N/A Management discussed with: Urology [facility] Treatment/interventions considered: N/A Response to therapies provided: Improved following analgesia HPI This is a 58-year-old male 2 days postop status post bladder mass resection with Olsen in place now with persistent nausea vomiting and left flank pain. Patient did have 20 minutes of relief when his flushed his Olsen catheter. Small clots have been noted. He has been attempting treatment at home with acetaminophen and tramadol. No recent falls. No syncope. He is also taking medications for bladder spasm. He endorses a persistent left flank and low back pain. Not anticoagulated. He is nauseous and vomiting. He denies chest pain shortness of breath. Exam General: Uncomfortable-appearing in no acute distress speaking in complete sentences. Holding emesis bag Head: Normocephalic, atraumatic. Eye: Extraocular eye movements intact. No conjunctival injection. No scleral icterus. Ear, nose, mouth, throat: Grossly normal inspection. Normal voice, handling secretions normally. Neck: Trachea midline. Cardiovascular: Well-perfused distal extremities. Regular rate and rhythm Respiratory: Nonlabored respiration. Clear lungs bilaterally. Gastrointestinal: Nondistended abdomen. Soft. Left lower quadrant tenderness. Left flank tenderness. Musculoskeletal: No edema. Moving all 4 extremities spontaneously. Skin: Normal for age and race, grossly normal temperature and turgor. No acute rash. Neurologic: Alert and appropriate, no apparent acute deficits. Psychiatric: Mood and manner are appropriate. Grooming and personal hygiene are appropriate. Related Data Home Medications Medication Instructions Recorded Confirmed oxybutynin chloride 5 mg tablet 5 mg PO Q6H PRN bladder spasms #30 07/31/23 08/01/23 tabs sulfamethoxazole 800 1 tab PO QHS infection prevention 07/31/23 08/01/23 mg-trimethoprim 160 mg tablet #7 tabs (Bactrim DS) tramadol 50 mg tablet 50 mg PO Q6H PRN PRN #20 tabs 07/31/23 08/01/23 Previous Rx's Medication Instructions Recorded oxybutynin chloride 5 mg tablet 5 mg PO Q6H PRN bladder spasms #30 07/31/23 tabs sulfamethoxazole 800 1 tab PO QHS infection prevention 07/31/23 mg-trimethoprim 160 mg tablet #7 tabs (Bactrim DS) tramadol 50 mg tablet 50 mg PO Q6H PRN PRN #20 tabs 07/31/23 Allergies Allergy/AdvReac Type Severity Reaction Status Date / Time No Known Allergies Allergy Verified 08/01/23 16:25 General Stated Complaint: Urinary VITO: 3 Course Vital Signs Vital signs: Vital Signs Temperature 37.5 C 08/01/23 16:20 Pulse 96 H 08/01/23 16:20 Respiratory Rate 16 08/01/23 16:20 Blood Pressure 174/108 H 08/01/23 16:20 Pulse Oximetry 100 08/01/23 16:20 Temperature 37.5 C 08/01/23 16:20 Pulse 96 H 08/01/23 16:20 Respiratory Rate 16 08/01/23 16:20 Respiratory Effort Normal 08/01/23 16:24 Blood Pressure 174/108 H 08/01/23 16:20 Pulse Oximetry 100 08/01/23 16:20 Pain Level 10 08/01/23 16:20 Lab/Test Results Lab/Test Results: Laboratory Tests Range/Units 08/01/23 16:47 WBC (4.4-10.8) 10^3/uL 19.55 H RBC (4.36-5.78) 10^6/uL 3.78 L Hgb (13.5-17.5) g/dL 11.0 L Hct (40.0-50.0) % 33.2 L MCV (80-95) fL 88 MCH (27.0-33.0) pg 29.1 MCHC (32.0-36.0) % 33.1 RDW (11.8-14.1) % 14.1 Plt Count (130-400) 10^3/uL 269 MPV (8.0-11.0) fL 10.2 Immature Gran % % 0.0 Neutrophils % % 74.0 Lymphocytes % % 18.0 Monocytes % % 8.0 Eosinophils % % 0.0 Basophils % % 0.0 Nucleated RBC % (0.0-0.3) % 0.0 Absolute Neutrophils (1.2-6.7) 10^3/uL 14.47 H Absolute Lymphocytes (1.2-3.4) 10^3/uL 3.52 H Absolute Monocytes (0.1-0.8) 10^3/uL 1.56 H Absolute Eosinophils (0.0-0.7) 10^3/uL 0.00 Absolute Basophils (0.0-0.2) 10^3/uL 0.00 RBC Morphology Normal Sodium (136-145) mmol/L 133 L Potassium (3.5-5.1) mmol/L 3.4 L Chloride (98-107) mmol/L 97 L Carbon Dioxide (21.0-32.0) mmol/L 23.6 Anion Gap (3-11) mmol/L 12.4 H BUN (7-18) mg/dL 15 Creatinine (0.70-1.30) mg/dL 1.6 H Est GFR (CKD-EPI 2020) (mL/min/1.73m2) 49.94 Glucose (74-106) mg/dL 119 H Calcium (8.5-10.1) mg/dL 8.8 Total Bilirubin (0.2-1.0) mg/dL 0.7 AST (15-37) U/L 14 L ALT (16-63) U/L 17 Alkaline Phosphatase (46-116) U/L 63 Total Protein (6.4-8.2) g/dL 7.0 Albumin (3.4-5.0) g/dL 3.2 L Medical Decision Making Quality:SDOH Health Related Social Needs: No Data to Display PFSH All Active Problems MALLORY (acute kidney injury) (Acute) Hydronephrosis of left kidney (Acute) Hematuria (Acute) Medical History Bladder mass Hypertension Surgical History Hx of shoulder surgery right History of colonoscopy Hx of appendectomy Social History Smoking/Tobacco Use Status: Current every day Tobacco Type: cigarettes Tobacco: How many years used: 40 Smoking risk assessment performed?: Yes Alcohol Intake: current Alcohol Intake frequency: holidays/special occasions only Drug use: Never Substance use type: does not use Housing: house Additional Social history: UTAP POCUS Exam (ED) Limited Retroperitoneal(Renal)Exam DATE OF EXAM: 08/01/23 TIME OF EXAM: 16:35 PROVIDER THAT PERFORMED THE STUDY: Jimbo Domínguez IS THIS A REPEAT EXAM DURING THIS ENCOUNTER: No REASON FOR EXAM: Back pain/left side VISUALIZED STRUCTURES: Left kidney, Right kidney and Other (Bladder) structures: Bilateral kidneys and bladder PERTINENT FINDINGS/IMPRESSION: Hydronephrosis present left side DIFFERENTIAL DIAGNOSES: Moderate left-sided hydronephrosis. No obvious UVJ stone. Decompressed bladder. Exam complete
[2023-08-01] MEDS: MORPHine 10 MG/ML VIAL 6 MG IVP (17:29)
[2023-08-01] MEDS: ACETAMINOPHEN 1,000 MG/100 ML BTL 400 MG IVPB (18:50)
[2023-08-01] MEDS: Tamsulosin 0.4 MG CAPCR PO (18:51)
[2023-08-01 19:11] LABS: Bilirubin Negative (Negative); Blood Large (Negative); Clarity Cloudy (Clear); Glucose Negative (Negative); Ketones 15 mg/dL (Negative); Leukocyte Esterase Trace (Negative); Nitrite Negative (Negative); Urobilinogen 0.2 mg/dL (Up to 0.2)
[2023-08-01 19:14] VITALS: PULSE 91; RESP 22; O2SAT 96
[2023-08-01 19:15] LABS: C & S Indicated? Yes; RBC >50 HPF (0-2)
--- NOTE | 2023-08-01 19:59 | HPE_ITS ---
Date of service: 08/01/23 Time of Service: 19:59 Assessment and Plan Assessment and plan (1) Hydronephrosis of left kidney: Start date: 08/01/23 Status: Acute Assessment and plan: This 58-year-old gentleman 2 days postoperative TURBT for a 5 cm or larger tumor. He does have Olsen catheter in place draining well but having gross hematuria. He had an onset of left flank pain and does have hydronephrosis on imaging with urology at [facility] [place] considering that this is probably from localized swelling around the ureteral orifice of the bladder. It was advised that he have pain control with IV hydration and Flomax. This was initiated patient was much more comfortable. He did not have fever but did have an elevated WBC was initiated on Rocephin as a precaution had been on Bactrim DS nightly for prophylaxis postoperatively for 7 days. If he is not improving or worsening he will need intervention with ureteral stent for nephrostomy tube and at that time if no local urology is available he will be transferred to [facility] for intervention. Dr. Wick was consulted by phone. Patient is a full code. (2) MALLORY (acute kidney injury): Start date: 08/01/23 Status: Acute Assessment and plan: Creatinine is elevated from baseline and patient will be initiated on IV hydration. Follow-up labs and adjust hydration as needed. (3) Hematuria: Start date: 08/01/23 Status: Acute Assessment and plan: Patient is postoperative with bladder tumor removal and this is expected. Continue Olsen catheter for drainage with irrigation of bladder as needed. Qualifiers: Hematuria type: gross Qualified Code(s): R31.0 - Gross hematuria (4) Bladder mass: Assessment and plan: Patient has had recent resection of bladder mass with pathology pending and follow-up with urology planned. (5) Hypertension: Assessment and plan: Patient is not on medical therapy for this problem and will be initiated on metoprolol 25 mg every 6 hours with heart rate also slightly elevated. He is in pain. Long-term he should follow-up with PCP for decision on chronic therapy if needed. Lifestyle changes would be helpful. Qualifiers: Hypertension type: primary hypertension Qualified Code(s): I10 - Essential (primary) hypertension (6) Tobacco use disorder, continuous: Status: Chronic Assessment and plan: Patient does smoke daily and is not on inhalers or specific treatment for COPD. Lung findings are abnormal and chest x-ray will be performed in the morning. He is on Rocephin for his possible urinary tract infection which should cover bronchitis community-acquired pneumonia. He is not hypoxic. History of Present Illness History of Present Illness Chief Complaint: This is an and vomiting with left flank pain Narrative: This is a 58-year-old male patient 2 days status post transurethral bladder tumor resection with greater than 5 cm in size now presenting to the ED with with left flank pain and nausea and vomiting. CT scan of the abdomen pelvis did show left hydronephrosis with no apparent stones and urology, with Dr. Wick consulted at [facility] stating that this may be secondary to postoperative edema. Urology was comfortable to have patient treated at this institution with pain control, Flomax and IV hydration with patient also being slightly dry with MALLORY. He was comfortable with IV hydration and morphine IV in the ED and will be hospitalized for continued treatment. He is on Bactrim DS nightly for prophylaxis after procedure but will be placed on Rocephin because of his elevated WBC without fever or evidence of pyelonephritis and watched closely for postobstructive symptoms which would require more immediate urological intervention for obstruction either with ureteral stent or nephrostomy tube. Presently he is afebrile with no signs or symptoms of severe postoperative infection or sepsis. He did receive the usual IV antibiotic therapy perioperatively during the procedure. He is a full code. Review of Systems Narrative: 13 point review of systems otherwise unrevealing or stable. PFSH All Active Problems (Updated 08/02/23 @ 06:56 by Joe Wilder) Tobacco use disorder, continuous (Chronic) MALLORY (acute kidney injury) (Acute) Hydronephrosis of left kidney (Acute) Hematuria (Acute) Medical History Bladder mass Hypertension Surgical History Hx of shoulder surgery right History of colonoscopy Hx of appendectomy Social History Smoking/Tobacco Use Status: Current every day Tobacco Type: cigarettes Tobacco: How many years used: 40 Smoking risk assessment performed?: Yes Alcohol Intake: current Alcohol Intake frequency: holidays/special occasions only Drug use: Never Substance use type: does not use Housing: house Additional Social history: UTAP Meds Allergies and Home Medications Allergies Allergy/AdvReac Type Severity Reaction Status Date / Time No Known Allergies Allergy Verified 08/01/23 16:25 Home Medications Medication Instructions Recorded Confirmed Type oxybutynin chloride 5 mg tablet 5 mg PO Q6H PRN bladder spasms #30 07/31/23 08/01/23 Rx tabs sulfamethoxazole 800 1 tab PO QHS infection prevention 07/31/23 08/01/23 Rx mg-trimethoprim 160 mg tablet #7 tabs (Bactrim DS) tramadol 50 mg tablet 50 mg PO Q6H PRN PRN #20 tabs 07/31/23 08/01/23 Rx Exam Narrative Exam Narrative: General: Patient appears older than stated age, moderately uncomfortable with his left flank pain which is improved with IV morphine. He is in moderate distress. Alert and oriented x 3. HEENT: Normocephalic, eyes with pupils equal metrical especially, extraocular intact and sclera anicteric. Poor dentition with moist oral mucosa. Neck: Supple without JVD. Back: Kyphotic without CVA tenderness though he does have left flank pain. Lungs: Bronchovesicular breath sounds diffusely with sparse coarse crackle but no focalizing rales. No rhonchi and expiratory wheeze. Fair aeration. Egophony left base with no dullness to percussion. Abdomen: Protuberant but soft with no focalizing tenderness. No guarding or rebound. Bowel sounds are positive in all quadrants. Genitalia/rectal: Exam deferred. Patient does have postoperative Olsen catheter in place with gross hematuria but draining well. Extremities: No clubbing, cyanosis or pitting edema. Peripheral pulses intact. Skin: Actinic changes over sun exposed areas with normal color otherwise. Warm and dry. Neuro: Cranial nerves II through XII grossly intact, no focal motor deficits or tremor. Psych: Normal affect and mood. No abnormal thought processes. Remote and recent memory intact. Results Imaging Imaging Studies: EXAM: CT ABDOMEN PELVIS W CLINICAL HISTORY: Left flank pain postop day 2. TECHNIQUE: Imaging Protocol: Axial computed tomography images with coronal and sagittal reformatted images were created and reviewed CONTRAST MATERIAL: Intravenous: Omnipaque 350 Contrast volume:100 ml Oral: No COMPARISON: CT CT ABDOMEN PELVIS WO from 07/08/2023 FINDINGS: ABDOMEN and PELVIS: Lung Bases: Atelectasis, scarring and cystic changes. Liver: Normal density. No suspicious mass. Gallbladder and biliary tract: No radiodense calculus. No biliary dilation. Pancreas: Normal density. No abnormal calcifications or inflammatory process. No evidence of mass. Spleen: Normal. Kidneys: Normal size, contour and axis. 1 millimeter stone lower pole left kidney. [id number] left hydronephrosis. No ureteral calculi. Delayed not left nephrogram. No definite findings to suggest pyelonephritis. Tiny bilateral renal cysts. No right hydronephrosis. No suspicious masses seen. Adrenal glands: No masses seen. Vasculature: Abdominal aorta non-dilated. Atherosclerotic changes. Soft tissues: Unremarkable. Bladder: Decompressed by Olsen catheter. Not well evaluated. Small amount of high-density material could represent hemorrhage. Bowel: Large quantity of stool in the right side of the colon. Little stool distally. No obstruction. No bowel wall thickening. Peritoneal cavity: No ascites. No focal collection. No mesenteric inflammatory response. Bones: Unremarkable for age. Reproductive organs: Unremarkable. Lymph nodes: No pathologically enlarged lymph nodes. IMPRESSION:: Patient is status post bladder surgery. The bladder is now decompressed with a Olsen catheter and is not well evaluated. Small amount of hemorrhage within bladder. There is new [id number] left hydronephrosis. There is no obstructing stone. Labs 08/01/23 16:47 08/01/23 16:47 Labs: Laboratory Results - last 24 hr 08/01/23 08/01/23 16:47 18:50 WBC 19.55 H RBC 3.78 L Hgb 11.0 L Hct 33.2 L MCV 88 MCH 29.1 MCHC 33.1 RDW 14.1 Plt Count 269 MPV 10.2 Immature Gran % 0.0 Neutrophils % 74.0 Lymphocytes % 18.0 Monocytes % 8.0 Eosinophils % 0.0 Basophils % 0.0 Nucleated RBC % 0.0 Absolute Neutrophils 14.47 H Absolute Lymphocytes 3.52 H Absolute Monocytes 1.56 H Absolute Eosinophils 0.00 Absolute Basophils 0.00 RBC Morphology Normal Sodium 133 L Potassium 3.4 L Chloride 97 L Carbon Dioxide 23.6 Anion Gap 12.4 H BUN 15 Creatinine 1.6 H Est GFR (CKD-EPI 2020) 49.94 Glucose 119 H Calcium 8.8 Total Bilirubin 0.7 AST 14 L ALT 17 Alkaline Phosphatase 63 Total Protein 7.0 Albumin 3.2 L Urine Color Red Urine Clarity Cloudy Urine pH 7.0 Ur Specific [place] 1.010 Urine Protein 100 H Urine Ketones 15 H Urine Blood Large H Urine Nitrite Negative Urine Bilirubin Negative Urine Urobilinogen 0.2 Ur Leukocyte Esterase Trace H Urine RBC >50 H Urine WBC Ur Epithelial Cells Not Applicable Urine Crystals Not Applicable Urine Bacteria Not Applicable Urine Mucus Not Applicable Ur Culture Indicated? Yes Urine Glucose Negative Last Vital Signs Temp 37.5 C 08/01/23 16:20 Pulse 91 H 08/01/23 19:14 Resp 22 08/01/23 19:14 BP 174/108 H 08/01/23 16:20 Pulse Ox 96 08/01/23 19:14 Time Spent Time spent with Patient: >75 minutes Time was spent: preparing to see the patient(eg.review tests), obtaining and/or reviewing separately otained hiistory, ordering medications,tests, procedures, referring, communicating with other health personal care service provider, indepentently interpreting results, counseling the patient and care coordination
[2023-08-01 20:53] VITALS: BP 135/92; PULSE 67; RESP 16; O2SAT 94
[2023-08-01] MEDS: MORPHine 4 MG/ML SYR IVP ×2 (21:44→23:41)
[2023-08-01 21:46] VITALS: BP 135/92; PULSE 67; RESP 16; TEMP 37.5; O2SAT 94
[2023-08-01 22:33] VITALS: BP 158/90; PULSE 77; RESP 16; TEMP 37; O2SAT 98
[2023-08-01] MEDS: cefTRIAXone 1 GM/50 ML BAG IVPB (23:43)
[2023-08-01] MEDS: Normal Saline 1,000 ML 150 ML IV (23:44)
[2023-08-01] MEDS: Potassium Chloride 20 MEQ TABCR PO (23:45)
[2023-08-01] MEDS: Metoprolol 25 MG TAB PO (23:45)
[2023-08-02] VITALS (7 sets, daily range): BP systolic 108–152; BP diastolic 63–86; PULSE 71–85; RESP 16–19; TEMP 36.6–37.6; O2SAT 94–96
[2023-08-02] MEDS: MORPHine 4 MG/ML SYR IVP ×4 (03:34→22:30)
[2023-08-02] MEDS: Metoprolol 25 MG TAB PO (05:41)
[2023-08-02 07:03] LABS: HCT 29.4 % (40.0-50.0); HGB 9.8 g/dL (13.5-17.5); MCH 29.5 pg (27.0-33.0); MCHC 33.3 % (32.0-36.0); MCV 89 fL (80-95); MPV 10.3 fL (8.0-11.0); Platelet Count 244 10^3/uL (130-400); RBC 3.32 10^6/uL (4.36-5.78); RDW 14.2 % (11.8-14.1); RDW-SD 46.4 fL; WBC 15.45 10^3/uL (4.4-10.8)
[2023-08-02] MEDS: Normal Saline 1,000 ML 150 ML IV ×3 (07:08→22:31)
[2023-08-02 07:11] LABS: ALT 11 U/L (16-63); AST 12 U/L (15-37); Albumin 2.6 g/dL (3.4-5.0); Alkaline Phosphatase 54 U/L (46-116); Anion Gap 0.8 mmol/L (3-11); BUN 14 mg/dL (7-18); Bilirubin, Total 0.4 mg/dL (0.2-1.0); CO2 28.2 mmol/L (21.0-32.0); CREATININE 1.5 mg/dL (0.70-1.30); Calcium 8.2 mg/dL (8.5-10.1); Chloride 103 mmol/L (98-107); Estimated GFR 53.96 (mL/min/1.73m2); Glucose 105 mg/dL (74-106); Magnesium 1.8 mg/dL (1.8-2.4); Potassium 3.8 mmol/L (3.5-5.1); Sodium 132 mmol/L (136-145); Total Protein 6.2 g/dL (6.4-8.2)
[2023-08-02] MEDS: Tamsulosin 0.4 MG CAPCR PO (08:19)
--- NOTE | 2023-08-02 09:45 | RT.EKG_ITS ---
APPROVED REPORT Exam: Resting ECG Reason for Exam: epigstric pain, smoker Patient Location: I HR:61 bpm ECG Measurements Heart Rate 61 AXIS IL 148 P 63 QRSd 67 QRS 50 QT 368 T 51 QTc 371 Conclusion Sinus rhythm...normal P axis, V-rate 50- 99 Normal Electrocardiogram
--- NOTE | 2023-08-02 09:46 | DI.RAD_ITS ---
Exam(s) XR CHEST 2V PA LATERAL EXAM: XR CHEST 2V PA LATERAL CLINICAL HISTORY: Daily smoker with left-sided lung findings.. TECHNIQUE: 2D digital imaging was performed. COMPARISON: CT CT ABDOMEN PELVIS W from 08/01/2023 FINDINGS: 2 views: Heart size is normal. The mediastinum is not widened. Increased markings are noted in both lower lobes, slightly more so on the left side with there appear s to be some mild infiltrate in the posterior basal segment of the left lower lobe. Milder findings in the right lower lobe. There are no pleural effusions. IMPRESSION: Some infiltrate is evident in the lower lobe. No pleural effusions. No pulmonary edema. DATA REPOSITORY: RADIATION DOSE DELIVERED:
[2023-08-02] MEDS: Ondansetron 4 MG/2 ML VIAL IVP ×2 (09:51→20:52)
--- NOTE | 2023-08-02 10:33 | PDOC.CMIN ---
Date of service: 08/02/23 Time of Service: 10:33 Care Management Initial Assmt Initial Assessment Reason for Hospitalization: Hydronephrosis and hematuria Functional Status/Living Situation Patient Presentation: Colten was sitting up in bed visiting with his when CM met with him. Both Colten and Pat were very pleasant and engaged easily with CM. Colten stated that he has not needed pain medicine since early this morning and was relatively pain free at the time of the visit. He was also medicated once for nausea which was effective.Colten is awaiting a visit from Dr. Odom to determine the next course of action. 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.) Instrumental Activities of Daily Living (ADLs): Independent Medications Medication Management: No Issues/Barriers identified Physical Functioning/Mobility Assistive Device: none Advance Directives Advance Directives: Do you have an Advance Directive: N 07/08/23 13:55 AD On File at [facility]: N 07/08/23 12:58 Date Asked 07/30/23 07/25/23 15:08 AD Date Reviewed COLST On File at [facility] COLST Date Scanned Code Status Resuscitation Status Full Code Portal Pt does not currently have a portal and education provided: Yes Insurance Coverage/Financial Issues Insurance: BC/BS [place] ACO Member: No Care Team Visit Care Team Role Provider Type Wayne Hackett MD Primary Care Provider NON-[facility] STAFF PHYSICIAN Lopez Odom MD Other Providers [facility] STAFF PHYSICIAN Jimbo Domínguez MD Emergency Provider [facility] STAFF PHYSICIAN Joe Wilder Admit Provider NON-[facility] STAFF PHYSICIAN Attending Provider Discharge Potential Discharge Needs: PCP F/U Appt and Surgical F/U Appt (urology) Anticipated Barriers to Discharge: None Identified Patient/Family Education Needs: Review discharge instructions, discuss Ask Me Three Transportation: Private vehicle Plan: Anticipate Colten will be discharged home with no new services. He will follow up with his PCP and Urology and transport with family. CM will continue to support discharge planning needs. PFSH All Active Problems (Updated 08/02/23 @ 12:00 by Jimbo Boateng) GERD (gastroesophageal reflux disease) (Chronic) Tobacco use disorder, continuous (Chronic) MALLORY (acute kidney injury) (Acute) Hydronephrosis of left kidney (Acute) Hematuria (Acute) Medical History Bladder mass Hypertension Surgical History Hx of shoulder surgery right History of colonoscopy Hx of appendectomy Social History Smoking/Tobacco Use Status: Current every day Tobacco Type: cigarettes Tobacco: How many years used: 40 Smoking risk assessment performed?: Yes Alcohol Intake: current Alcohol Intake frequency: holidays/special occasions only Drug use: Never Substance use type: does not use Housing: house Additional Social history: UTAP Readmission Within the Past 30 Days Yes or No: Yes Date of First Admission Date of 1st Admission: 07/30/23 Date of this Admission Date of Admission: 08/01/23 This admission was: Through ED Office Visit Since 1st Admission Have you seen your PCP in the office since discharge?: No I. Interview patient and/or Family Difficulty reaching your doctor or getting an office appt?: No Have you had trouble purchasing/ or taking medication?: No Have you had trouble with getting meals at home?: No Did you feel ready for discharge when you left the last time: Yes Did you call your physician beore you came to the ED?: No Assessment for Readmission Summary of readmission circumstances, based upon interviews: Colten had a TURBT on 07/30/23. On the day of admission he began experiencing increased pain and hematuria and presented to the ED. SDOH(Care Management) Screening Will the Patient Participate in the Screening?: Yes Do you worry about having a steady place to live?: no In the past 12 months, have you had to go without electric, gas, oil or water in your home?: no Have you or anyone in your house had to go without enough food to eat?: no Has lack of transportation kept you from medical appointments or from doing things needed for daily living?: no Has anyone in your support network made you feel unsafe for any reason?: no
--- NOTE | 2023-08-02 10:56 | W.PM.PROGNOT ---
Date of Service Date of service: 08/02/23 Time of Service: 10:56 Assessment and Plan Assessment and plan (1) Hydronephrosis of left kidney: Start date: 08/01/23 Status: Acute Assessment and plan: Now 3 days postoperative TURBT for a 5+ cm tumor. He does have Coronado catheter in place draining well but having gross hematuria. [place] [facility] [place] that this is probably from localized swelling around the ureteral orifice of the bladder. - pain control with IV hydration and Flomax per [facility] Wick recommendations - No fever but elevated WBC despite Bactrim DS nightly for prophylaxis postoperatively for 7 days - continue ceftriaxone for now - If he is not improving or worsening he will need intervention with ureteral stent for nephrostomy tube with local urology vs transfer to [facility] [place] intervention, formal urology consult pending. - I did add back oxybutynin for bladder spasm pain (2) MALLORY (acute kidney injury): Start date: 08/01/23 Status: Acute Assessment and plan: Creatinine is elevated from baseline, slightly improved with hydration but has not normalized. Likely obstructive uropathy, Has coronado but obstruction as left ureteral orifice obstructing. (3) Hematuria: Start date: 08/01/23 Status: Acute Assessment and plan: Patient is postoperative with bladder tumor removal and this is expected. Continue Coronado catheter for drainage with irrigation of bladder as needed. Qualifiers: Hematuria type: gross Qualified Code(s): R31.0 - Gross hematuria (4) Bladder mass: Assessment and plan: Patient has had recent resection of bladder mass with pathology pending and follow-up with urology planned, no change (5) Hypertension: Assessment and plan: Patient is not on medical therapy for this problem, was initiated on metoprolol 25 mg every 6 hours with heart rate also slightly elevated, though this was likely related to acute pain. I am stopping the metoprolol and he can follow up in primary care to assess the need for antihypertensive therapy, as metoprolol not a first line agent. Qualifiers: Hypertension type: primary hypertension Qualified Code(s): I10 - Essential (primary) hypertension (6) Tobacco use disorder, continuous: Status: Chronic Assessment and plan: Patient does smoke daily and is not on inhalers or specific treatment for COPD. CXR showed possible bibasilar infiltrate, but without symptoms and normalized exam I think this is likely simply related to his abdominal pain with atelectasis. Encouraged smoking cessation. (7) GERD (gastroesophageal reflux disease): Status: Chronic Assessment and plan: Transient heartburn a/w bladder pain, EKG reassuring, not c/w cardiac pain. Subjective Subjective Patient reports: denies shortness of breath or fever Interval history since last seen: He still has steady suprapubic to left flank pain, severe at times. When that pain was bad this morning, he had nausea and burning pain in his mid chest as well he describes as heartburn, which is not common for him. He hasn't had a BM since Sunday, 3 days ago. Coronado is draining bloody urine Exam Narrative Exam Narrative: General: No acute distress. Alert and oriented x 3. Back: No CVA tenderness though he does have left flank pain. Lungs: Lung sounds clear this morning, no rhonchi and expiratory wheeze. Abdomen: +BS, soft with no focalizing tenderness. No guarding or rebound. Extremities: No clubbing, cyanosis or pitting edema. . Objective Last Vital Signs Temp 37.2 C 08/02/23 09:56 Pulse 73 08/02/23 09:56 Resp 19 08/02/23 09:56 BP 131/81 08/02/23 09:56 Pulse Ox 95 08/02/23 09:56 Laboratory Results - last 24 hr 08/01/23 08/01/23 08/02/23 16:47 18:50 06:15 WBC 19.55 H 15.45 H RBC 3.78 L 3.32 L Hgb 11.0 L 9.8 L Hct 33.2 L 29.4 L MCV 88 89 MCH 29.1 29.5 MCHC 33.1 33.3 RDW 14.1 14.2 H Plt Count 269 244 MPV 10.2 10.3 Immature Gran % 0.0 Neutrophils % 74.0 Lymphocytes % 18.0 Monocytes % 8.0 Eosinophils % 0.0 Basophils % 0.0 Nucleated RBC % 0.0 Absolute Neutrophils 14.47 H Absolute Lymphocytes 3.52 H Absolute Monocytes 1.56 H Absolute Eosinophils 0.00 Absolute Basophils 0.00 RBC Morphology Normal Sodium 133 L 132 L Potassium 3.4 L 3.8 Chloride 97 L 103 Carbon Dioxide 23.6 28.2 Anion Gap 12.4 H 0.8 L BUN 15 14 Creatinine 1.6 H 1.5 H Est GFR (CKD-EPI 2020) 49.94 53.96 Glucose 119 H 105 Calcium 8.8 8.2 L Magnesium 1.8 Total Bilirubin 0.7 0.4 AST 14 L 12 L ALT 17 11 L Alkaline Phosphatase 63 54 Total Protein 7.0 6.2 L Albumin 3.2 L 2.6 L Urine Color Red Urine Clarity Cloudy Urine pH 7.0 Ur Specific [place] 1.010 Urine Protein 100 H Urine Ketones 15 H Urine Blood Large H Urine Nitrite Negative Urine Bilirubin Negative Urine Urobilinogen 0.2 Ur Leukocyte Esterase Trace H Urine RBC >50 H Urine WBC Ur Epithelial Cells Not Applicable Urine Crystals Not Applicable Urine Bacteria Not Applicable Urine Mucus Not Applicable Ur Culture Indicated? Yes Urine Glucose Negative Objective Narrative Objective Narrative: EKG: NSR, no ischemic changes CXR: increased markings in bother lower lobes, no effusions or edema Time Spent with Patient Time Spent with Patient: 35-49 minutes Time was spent: preparing to see the patient(eg.review tests), obtaining and/or reviewing separately otained hiistory, ordering medications,tests, procedures, referring, communicating with other health child care center administrator, indepentently interpreting results, counseling the patient and care coordination
--- NOTE | 2023-08-02 12:35 | PHA.REVIEW2 ---
Pharmacy Admission Review Admission Clinical Review Admission Pharmacy Review: MALLORY (acute kidney injury) (Acute) Hydronephrosis of left kidney (Acute) Hematuria (Acute) No Known Allergies Allergy (Verified 08/01/23 16:25) Resuscitation Status Full Code Height 5 ft 10 in Weight 69.853 kg Pharmacy Admission Review Renal Dosing Renal Dosing: BUN 14 mg/dL (7-18) 08/02/23 06:15 Creatinine 1.5 mg/dL (0.70-1.30) H 08/02/23 06:15 Medications needing adjustments: Reviewed (CrCl 53.68 mL/min, Scr decreased from 1.6) List of meds needing interventions: Current medications are okay Anticoagulation Anticoagulation: Hgb 9.8 g/dL (13.5-17.5) L 08/02/23 06:15 Hct 29.4 % (40.0-50.0) L 08/02/23 06:15 Plt Count 244 10^3/uL (130-400) 08/02/23 06:15 Creatinine 1.5 mg/dL (0.70-1.30) H 08/02/23 06:15 DVT Prophylaxis: Reviewed (SCDs) Opiate Usage Evaluate Pain Scale/Pains Meds: Reviewed (PRN morphine - 3 doses given) Scheduled Bowel Reg ordered if on Opiates?: No (PRN Miralax and docusate) Relevant Labs Relevant Labs: Sodium 132 mmol/L (136-145) L 08/02/23 06:15 Potassium 3.8 mmol/L (3.5-5.1) 08/02/23 06:15 Chloride 103 mmol/L (98-107) 08/02/23 06:15 Magnesium 1.8 mg/dL (1.8-2.4) 08/02/23 06:15 Electrolytes, C-Reactive P, ESR: Reviewed (Na 132, Hgb decreased from 11 to 9.8) Cardiac Review BP, HR, EF%: Reviewed (HR and BP WNL) QTc Review QTc: Reviewed (371 from 08/02/23) IV to PO Switch IV Medications: Reviewed (Ceftriaxone, morphine and ondansetron) Home Meds Home Med List reviewed: Reviewed Relevent Home Meds Not ordered & why?: Bactrim (completed) and tramadol (PRN) Current Meds Current Medication Order Review: Intervened Comments: Added IV admission set Pharmacy Antibiotic Review Relevant Labs: WBC 15.45 10^3/uL (4.4-10.8) H 08/02/23 06:15 Temperature 37.1 C Temperature 37.2 C Temperature 36.8 C Temperature 36.6 C Microbiology 08/01/23 18:50 Urine Culture - Preliminary Urine - Reflex from Ua No growth at 24 hours Comments: Patient is on ceftriaxone day 1 for possible UTI. He is POD 3# TURBT. WBC decreased from 19.55 to 15.45, urine culture showing no growth at 24 hours.
[2023-08-02] MEDS: Docusate Sodium 100 MG CAP PO ×2 (14:58→20:25)
--- NOTE | 2023-08-02 16:18 | W.UROLOGYCON ---
Date of service: 08/02/23 Time of Service: 16:19 Assessment and Plan Assessment and plan (1) Hydronephrosis of left kidney: Status: Acute Assessment and plan: Hopefully, his left hydronephrosis is just transient based on edema from his recent transurethral resection. Given the size and location of the tumor, edema is the most likely culprit. When I did his transurethral resection, we were not able to visualize the left ureteral orifice given the position and volume of tumor. If his flank pain returns, we would likely need a left nephrostomy tube since we would not be able to identify the left ureteral orifice. Since he does seem to be improving clinically, we will attempt to switch over to oral medications before deciding if and when he might be able to go home. We also need to work on his bowel function is almost all of the medications that they have been giving him can cause constipation. History of Present Illness History of Present Illness Chief Complaint: Left hydronephrosis Narrative: This is a 58-year-old gentleman who has a history of gross hematuria. He was identified as having a large left bladder mass and he underwent cystoscopy and transurethral resection of the large left-sided bladder mass about 3 days ago. He initially was managed with continuous bladder irrigation. He had some pain and nausea following the procedure, but it seemed mostly suprapubic pain related to spasms. By postoperative day #1 his discomfort was managed with anticholinergics. He was discharged to home on postoperative day #1. At the time of his discharge his white blood count was still elevated, but he was afebrile. His renal function was above baseline for him, but was not dangerously high. After his discharge, he did relatively well for about 36 hours before he developed severe left flank pain, nausea and vomiting. He was seen in the emergency department and a CT showed new onset left hydronephrosis. He was admitted for hydration, analgesia and antiemetics. Since his admission, he tells me his flank pain has improved. He now is back to having suprapubic discomfort. The nausea really only occurred when the flank pain was severe. He is not having any fevers or chills. He is still not moved his bowels since his procedure. He feels abdominal pressure and distention. Review of Systems Narrative: No fevers or chills No vision change or dysphasia No diabetes or thyroid No shortness of breath, cough or hemoptysis No chest pain or palpitations Nausea and vomiting when left flank pain severe. No hepatitis, ulcers, jaundice No seizures, strokes or peripheral neuropathy No bleeding disorders No gout PFSH All Active Problems (Updated 08/02/23 @ 12:00 by Jimbo Boateng) GERD (gastroesophageal reflux disease) (Chronic) Tobacco use disorder, continuous (Chronic) MALLORY (acute kidney injury) (Acute) Hydronephrosis of left kidney (Acute) Hematuria (Acute) Medical History Bladder mass Hypertension Surgical History Hx of shoulder surgery right History of colonoscopy Hx of appendectomy Social History Smoking/Tobacco Use Status: Current every day Tobacco Type: cigarettes Tobacco: How many years used: 40 Smoking risk assessment performed?: Yes Alcohol Intake: current Alcohol Intake frequency: holidays/special occasions only Drug use: Never Substance use type: does not use Housing: house Additional [facility] Exam Narrative Exam Narrative: He appears uncomfortable but not in acute pain His vital signs are documented elsewhere in the chart His abdomen shows no peritoneal signs His catheter is draining blood tinged urine He is awake and alert Results Last Vital Signs Temp 37.6 C H 08/02/23 15:33 Pulse 80 08/02/23 15:33 Resp 16 08/02/23 15:33 BP 120/77 08/02/23 15:33 Pulse Ox 96 08/02/23 15:33 Labs 08/02/23 06:15 08/02/23 06:15 Labs: Laboratory Results - last 24 hr 08/01/23 08/01/23 08/02/23 16:47 18:50 06:15 WBC 19.55 H 15.45 H RBC 3.78 L 3.32 L Hgb 11.0 L 9.8 L Hct 33.2 L 29.4 L MCV 88 89 MCH 29.1 29.5 MCHC 33.1 33.3 RDW 14.1 14.2 H Plt Count 269 244 MPV 10.2 10.3 Immature Gran % 0.0 Neutrophils % 74.0 Lymphocytes % 18.0 Monocytes % 8.0 Eosinophils % 0.0 Basophils % 0.0 Nucleated RBC % 0.0 Absolute Neutrophils 14.47 H Absolute Lymphocytes 3.52 H Absolute Monocytes 1.56 H Absolute Eosinophils 0.00 Absolute Basophils 0.00 RBC Morphology Normal Sodium 133 L 132 L Potassium 3.4 L 3.8 Chloride 97 L 103 Carbon Dioxide 23.6 28.2 Anion Gap 12.4 H 0.8 L BUN 15 14 Creatinine 1.6 H 1.5 H Est GFR (CKD-EPI 2020) 49.94 53.96 Glucose 119 H 105 Calcium 8.8 8.2 L Magnesium 1.8 Total Bilirubin 0.7 0.4 AST 14 L 12 L ALT 17 11 L Alkaline Phosphatase 63 54 Total Protein 7.0 6.2 L Albumin 3.2 L 2.6 L Urine Color Red Urine Clarity Cloudy Urine pH 7.0 Ur Specific [place] 1.010 Urine Protein 100 H Urine Ketones 15 H Urine Blood Large H Urine Nitrite Negative Urine Bilirubin Negative Urine Urobilinogen 0.2 Ur Leukocyte Esterase Trace H Urine RBC >50 H Urine WBC Ur Epithelial Cells Not Applicable Urine Crystals Not Applicable Urine Bacteria Not Applicable Urine Mucus Not Applicable Ur Culture Indicated? Yes Urine Glucose Negative
--- NOTE | 2023-08-02 17:14 | CHAPLAIN ---
Bryant was in bed when I visited. He said his had been her all day with him, so he sent her home. He's waiting to meet with the hospitalist to learn what the plan is for him. Bryant was pleasant and easily engaged in a conversation. I explained my role and offered support.
[2023-08-02] MEDS: cefTRIAXone 1 GM/50 ML BAG IVPB (20:25)
[2023-08-02] MEDS: Normal Saline Flush 10 ML SYR IVP (20:25)
[2023-08-02] MEDS: Oxybutynin 5 MG TAB PO (20:25)
[2023-08-02] MEDS: Polyethylene Glycol 3350 17 GM PACKET PO (22:31)
[2023-08-03] MEDS: MORPHine 4 MG/ML SYR IVP ×6 (01:13→13:33)
[2023-08-03 03:53] VITALS: BP 143/80; PULSE 94; RESP 16; TEMP 37; O2SAT 96
[2023-08-03] MEDS: Normal Saline 1,000 ML 150 ML IV ×2 (05:28→12:29)
[2023-08-03 06:35] LABS: Abs Immature Grans 0.06 10^3/uL (0.0-0.06); Absolute Eosinophil Count 0.28 10^3/uL (0.0-0.7); Absolute Lymphocyte Count 2.73 10^3/uL (1.2-3.4); Absolute Monocyte Count 1.25 10^3/uL (0.1-0.8); Basophils % 0.4 %; HCT 29.9 % (40.0-50.0); HGB 9.6 g/dL (13.5-17.5); Immature Grans % 0.4 %; Lymphocytes % 19.2 %; MCH 29.4 pg (27.0-33.0); MCHC 32.1 % (32.0-36.0); MCV 91 fL (80-95); MPV 10.1 fL (8.0-11.0); Monocytes % 8.8 %; Neutrophils % 69.2 %; Platelet Count 264 10^3/uL (130-400); RBC 3.27 10^6/uL (4.36-5.78); RDW 14.4 % (11.8-14.1); RDW-SD 47.9 fL; WBC 14.24 10^3/uL (4.4-10.8)
[2023-08-03 06:39] LABS: Absolute Basophil Count 0.06 10^3/uL (0.0-0.2); Absolute Neutrophil Count 9.85 10^3/uL (1.2-6.7)
[2023-08-03] MEDS: Normal Saline Flush 10 ML SYR IVP ×4 (06:43→19:50)
[2023-08-03 06:56] LABS: ALT 12 U/L (16-63); AST 12 U/L (15-37); Albumin 2.6 g/dL (3.4-5.0); Alkaline Phosphatase 54 U/L (46-116); BUN 16 mg/dL (7-18); Bilirubin, Total 0.5 mg/dL (0.2-1.0); CREATININE 1.6 mg/dL (0.70-1.30); Calcium 8.2 mg/dL (8.5-10.1); Chloride 103 mmol/L (98-107); Estimated GFR 49.94 (mL/min/1.73m2); Glucose 105 mg/dL (74-106); Potassium 3.9 mmol/L (3.5-5.1); Sodium 138 mmol/L (136-145); Total Protein 6.3 g/dL (6.4-8.2)
[2023-08-03 07:20] VITALS: BP 138/77; PULSE 83; RESP 18; TEMP 36.8; O2SAT 98
--- NOTE | 2023-08-03 07:21 | W.PM.PROGNOT ---
Date of Service Date of service: 08/03/23 Time of Service: 07:21 Assessment and Plan Assessment and plan (1) Hydronephrosis of left kidney: Status: Acute Assessment and plan: With his persistent renal colic symptoms, I believe we need to relieve his hydronephrosis. We would not be able to identify his ureteral orifice to place a ureteral stent in a retrograde manner (I was unable to visualize the ureteral orifice even before the transurethral resection). We will contact our interventional radiology colleagues down at [facility] and see if we can arrange for a nephrostomy tube placement to relieve his hydronephrosis. Subjective Subjective Interval history since last seen: He continues to have intermittent episodes of left renal colic which are associated with nausea He does have some suprapubic discomfort. He has not moved his bowels for nearly a week now Exam Narrative Exam Narrative: He appears comfortable at the moment His vital signs are documented elsewhere He has no peritoneal signs His urine is pink-tinged but transparent He is awake and alert Objective Last Vital Signs Temp 37 C 08/03/23 03:53 Pulse 94 H 08/03/23 03:53 Resp 16 08/03/23 03:53 BP 143/80 H 08/03/23 03:53 Pulse Ox 96 08/03/23 03:53 Laboratory Results - last 24 hr 08/03/23 06:10 WBC 14.24 H RBC 3.27 L Hgb 9.6 L Hct 29.9 L MCV 91 MCH 29.4 MCHC 32.1 RDW 14.4 H Plt Count 264 MPV 10.1 Immature Gran % 0.4 Neutrophils % 69.2 Lymphocytes % 19.2 Monocytes % 8.8 Eosinophils % 2.0 Basophils % 0.4 Nucleated RBC % 0.0 Absolute Neutrophils 9.85 H Absolute Lymphocytes 2.73 Absolute Monocytes 1.25 H Absolute Eosinophils 0.28 Absolute Basophils 0.06 Sodium 138 Potassium 3.9 Chloride 103 Carbon Dioxide 25.0 Anion Gap 10.0 BUN 16 Creatinine 1.6 H Est GFR (CKD-EPI 2020) 49.94 Glucose 105 Calcium 8.2 L Total Bilirubin 0.5 AST 12 L ALT 12 L Alkaline Phosphatase 54 Total Protein 6.3 L Albumin 2.6 L Time Spent with Patient Time Spent with Patient: <25 minutes Time was spent: other
[2023-08-03] MEDS: Magnesium Citrate 300 ML BTL 150 ML PO (08:20)
[2023-08-03] MEDS: Oxybutynin 5 MG TAB PO (08:22)
[2023-08-03] MEDS: Tamsulosin 0.4 MG CAPCR PO (08:22)
[2023-08-03] MEDS: Docusate Sodium 100 MG CAP PO ×2 (08:22→19:50)
--- NOTE | 2023-08-03 09:41 | CMPROGNOTE_ITS ---
Date of service: 08/03/23 Time of Service: 09:42 Care Management Progress Note Progress Note Text Progress Note Text: S/O:Colten was sitting up in bed when CM met with him. He was seen by Urology this morning and informed that it would be best if he were to go to [facility] for a down and back nephrostomy tube and stent placement. Initially it was unclear if it could be arranged for today, but the efforts to do so were successful. Colten is scheduled to be transported to [facility] at 1:45 pm and will return later today. He will likely be discharged home either later today or tomorrow.While CM was visiting with Colten, Pat arrived. CM reviewed the developing plan and both Colten and Pat verbalized being comfortable with the plan. A: Colten is a 58 year old man admitted on 08/01/23 with hydronephrosis Discharge Anticipated Barriers to Discharge: Other (needs to go to [facility] [place] [facility] for to Interventional Radiology for nephrostomy tube placement) Patient/Family Education Needs: Other (limitations, follow up plan) Transportation: Private vehicle Plan: Per Urology, Colten needs to go to Interventional Radiology in a tertiary care facility for nephrostomy tube placement. It will be scheduled as a down and back procedure, after which he will likely discharge home. He will follow up with Urology and his plan of care and transport with his . CM will follow and continue to support discharge planning needs. SDOH(Care Management) Screening Will the Patient Participate in the Screening?: Yes Do you worry about having a steady place to live?: no In the past 12 months, have you had to go without electric, gas, oil or water in your home?: no Have you or anyone in your house had to go without enough food to eat?: no Has lack of transportation kept you from medical appointments or from doing things needed for daily living?: no Has anyone in your support network made you feel unsafe for any reason?: no
[2023-08-03 11:18] VITALS: BP 133/78; PULSE 89; RESP 18; TEMP 37.5; O2SAT 96
--- NOTE | 2023-08-03 13:53 | NUR.NOTE ---
Nursing Note: Patient left via [facility] at this time for down and back to [facility] for neph tube and stents to the L kidney, report was called to [facility] at 1221.
[2023-08-03 17:45] VITALS: BP 155/75; PULSE 94; RESP 18; TEMP 36.7; O2SAT 96
[2023-08-03] MEDS: oxyCODONE 5 MG TAB PO ×2 (17:48→21:18)
[2023-08-03 19:31] VITALS: BP 124/79; PULSE 91; RESP 18; TEMP 37; O2SAT 93
[2023-08-03 23:11] VITALS: BP 120/69; PULSE 91; RESP 18; TEMP 36.9; O2SAT 94
[2023-08-04] MEDS: oxyCODONE 5 MG TAB PO ×2 (01:35→05:01)
[2023-08-04 03:20] VITALS: BP 120/79; PULSE 96; RESP 18; TEMP 37.1; O2SAT 92
--- NOTE | 2023-08-04 06:17 | W.PM.PROGNOT ---
Date of Service Date of service: 08/04/23 Time of Service: 06:17 Assessment and Plan Assessment and plan (1) Bladder cancer: Status: Acute (2) Hydronephrosis of left kidney: Status: Acute Assessment and plan: Hopefully, the left hydronephrosis is still related to postop edema. As he heals, we will plan to clamp the nephrostomy tube to see if his renal colic recurs. If the renal colic does recur, we will plan to have an antegrade ureteral stent placed. If the renal colic does not recur, we will remove the nephrostomy tube. I believe he is now able to be discharged with oral medications. He already has a follow-up appointment with us on Sunday to have his urethral catheter removed. Subjective Subjective Interval history since last seen: He had his nephrostomy tube successfully placed yesterday. He no longer has renal colic. He has some muscle discomfort at the insertion site. He has not gone into clot retention. He has some mild nausea but no vomiting. He has been able to take oral liquids and oral pain medications with no difficulty. Exam Narrative Exam Narrative: He appears comfortable His vital signs are documented elsewhere The left nephrostomy tube is draining clear urine I hand irrigated his urethral catheter and extracted a few clots He is awake and alert I did share with the patient his surgical pathology. 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 The muscularis was present in the specimen and no tumor was found in the muscle. Objective Last Vital Signs Temp 37.1 C 08/04/23 03:20 Pulse 96 H 08/04/23 03:20 Resp 18 08/04/23 03:20 BP 120/79 08/04/23 03:20 Pulse Ox 92 08/04/23 03:20 Laboratory Results - last 24 hr 08/03/23 06:10 WBC 14.24 H RBC 3.27 L Hgb 9.6 L Hct 29.9 L MCV 91 MCH 29.4 MCHC 32.1 RDW 14.4 H Plt Count 264 MPV 10.1 Immature Gran % 0.4 Neutrophils % 69.2 Lymphocytes % 19.2 Monocytes % 8.8 Eosinophils % 2.0 Basophils % 0.4 Nucleated RBC % 0.0 Absolute Neutrophils 9.85 H Absolute Lymphocytes 2.73 Absolute Monocytes 1.25 H Absolute Eosinophils 0.28 Absolute Basophils 0.06 Sodium 138 Potassium 3.9 Chloride 103 Carbon Dioxide 25.0 Anion Gap 10.0 BUN 16 Creatinine 1.6 H Est GFR (CKD-EPI 2020) 49.94 Glucose 105 Calcium 8.2 L Total Bilirubin 0.5 AST 12 L ALT 12 L Alkaline Phosphatase 54 Total Protein 6.3 L Albumin 2.6 L Time Spent with Patient Time Spent with Patient: <25 minutes Time was spent: preparing to see the patient(eg.review tests), obtaining and/or reviewing separately otained hiistory and referring, communicating with other health youth care specialist
--- NOTE | 2023-08-04 06:20 | W.PM.DS.N ---
Date of service: 08/04/23 Time of Service: 06:21 DS: Diagnosis Discharge Diagnosis (1) Bladder cancer: Status: Acute (2) Hydronephrosis of left kidney: Status: Acute Discharge Plan Disposition Patient Disposition: Home Condition: Improving Discharge Details Reason For Visit: left hydronephrosis status post TURBT Admit Date/Time: 08/01/23 20:06 Admit Provider: Lopez Odom Attending Provider: Lopez Odom Primary Care Provider: Wayne Hackett Hospital Course Hospital Course: The patient was admitted and given IV hydration, analgesics and antiemetics. We initially thought his hydronephrosis was related to postoperative edema and might improve on its own. When his symptoms persisted for greater than 24 hours, we contacted the interventional radiology service at [facility] and arranged for placement of a left nephrostomy tube. Once the tube was placed, the renal colic type symptoms improved. He no longer had vomiting and he was able to tolerate oral medications. He will be discharged to home with both the nephrostomy tube in place and his Coronado catheter in place. Home Meds and New Rx's Prescriptions: New oxycodone 5 mg tablet 5 - 10 mg PO Q6H PRN (Reason: pain) Qty: 30 0RF Rx Instructions: do not take with tramadol but may take with tylenol ondansetron 4 mg tablet,disintegrating 4 mg PO Q8H PRN (Reason: nausea and vomiting) Qty: 10 0RF Discontinued tramadol 50 mg Tablet 50 mg PO Q6H PRN PRNQty: 20 0RF No Action sulfamethoxazole-trimethoprim [Bactrim DS] 800-160 mg tablet 1 tab PO QHS Qty: 7 0RF oxybutynin chloride 5 mg tablet 5 mg PO Q6H PRN (Reason: bladder spasms) Qty: 30 1RF Discharge Instructions Additional Instructions: Nephrostomy tube to leg bag Coronado catheter to separate leg bag (catheter plug to the irrigation port on the Coronado) Keep your appointment for Sunday for urethral catheter removal Activity:: No lifting over 10 pounds Equipment/Supplies:: Catheter supplies Diet:: As Tolerated Discharge Data Discharge Date/Time-TO BE ENTERED AT DEPARTURE: 08/04/23 06:31 DS: Summary Time Spent with Patient providing and/or coordinating discharge services: Less than 30 minutes Status at Discharge Functional status at discharge: independent ambulation Overall status at discharge: patient is progressing back to baseline Mental Status: mental status grossly normal Speech and Movement: speech and movement normal Mood: congruent mood Affect: normal affect Quality:SDOH Health Related Social Needs: No Data to Display Exam Narrative Exam Narrative: On the morning of discharge, he does not appear septic or toxic His vital signs are documented elsewhere His chest wall motion is normal. His abdomen is soft. There is a nephrostomy tube on the left that is draining clear urine. His urethral catheter is draining bloody urine, but I hand irrigated the catheter and multiple small clots were evacuated. The irrigant then became clear. He is awake and alert Psych Mental Status: mental status grossly normal Speech and Movement: speech and movement normal Mood: congruent mood Affect: normal affect DS: Data Vitals/I&O Vitals and I&O: Vital Signs Temperature 37.1 C 08/04/23 03:20 Temperature Source Skin 08/04/23 03:20 Pulse 96 H 08/04/23 03:20 Pulse Rhythm Regular 08/04/23 03:14 Respiratory Rate 18 08/04/23 03:20 Respiratory Effort Normal 08/04/23 03:14 Respiratory Depth Normal 08/04/23 03:14 Respiratory Pattern Normal 08/04/23 03:14 Blood Pressure 120/79 08/04/23 03:20 Pulse Oximetry 92 08/04/23 03:20 Oxygen Delivery Method Room Air 08/04/23 03:20 Oxygen Flow Rate 0 08/04/23 03:20 Pain Level 5 08/04/23 05:01 Intake & Output 08/03/23 08/03/23 08/04/23 11:59 23:59 11:59 Intake Total 2250 / 3440 1190 / 3440 Output Total 500 / 1300 800 / 1300 Balance 1750 / 2140 390 / 2140 Weight 73 kg Intake: IV 2049 / 3240 1190 / 3240 Oral 200 / 200 Output: Drainage 350 / 350 Left Flank 350 / 350 Urine 500 / 950 450 / 950 Other: Urine Color Robles Dark Red Dark Red Dark Red Urine Appearance Hematuria Clear Clear Clots Hematuria Comment Pt emptied coronado independently; observed throughout the night with good output. Data Completed and Pending Pending studies at discharge: may discharge as long as serum creatinine is equal to or less than 1.6 on this mornings labs Labs on day of discharge: Labs from last 24 hours 08/04/23 08/04/23 08/03/23 06:16 06:15 06:10 WBC Pending 14.24 H RBC Pending 3.27 L Hgb Pending 9.6 L Hct Pending 29.9 L MCV Pending 91 MCH Pending 29.4 MCHC Pending 32.1 RDW Pending 14.4 H Plt Count Pending 264 MPV Pending 10.1 Immature Gran % 0.4 Neutrophils % 69.2 Lymphocytes % 19.2 Monocytes % 8.8 Eosinophils % 2.0 Basophils % 0.4 Nucleated RBC % 0.0 Absolute Neutrophils 9.85 H Absolute Lymphocytes 2.73 Absolute Monocytes 1.25 H Absolute Eosinophils 0.28 Absolute Basophils 0.06 Sodium Pending 138 Potassium Pending 3.9 Chloride Pending 103 Carbon Dioxide Pending 25.0 Anion Gap Pending 10.0 BUN Pending 16 Creatinine Pending 1.6 H Est GFR (CKD-EPI 2020) Pending 49.94 Glucose Pending 105 Calcium Pending 8.2 L Total Bilirubin 0.5 AST 12 L ALT 12 L Alkaline Phosphatase 54 Total Protein 6.3 L Albumin 2.6 L PFSH All Active Problems Bladder cancer (Acute) GERD (gastroesophageal reflux disease) (Chronic) Tobacco use disorder, continuous (Chronic) MALLORY (acute kidney injury) (Acute) Hydronephrosis of left kidney (Acute) Hematuria (Acute) Medical History Bladder mass Hypertension Surgical History Hx of shoulder surgery right History of colonoscopy Hx of appendectomy Social History Smoking/Tobacco Use Status: Current every day Tobacco Type: cigarettes Tobacco: How many years used: 40 Smoking risk assessment performed?: Yes Alcohol Intake: current Alcohol Intake frequency: holidays/special occasions only Drug use: Never Substance use type: does not use Housing: house Additional Social history: [facility] Time Spent with Patient Time Spent with Patient: <45 minutes Time was spent: preparing to see the patient(eg.review tests), obtaining and/or reviewing separately otained hiistory, referring, communicating with other health rn critical care and counseling the patient
[2023-08-04 06:48] LABS: HCT 27.9 % (40.0-50.0); HGB 9.4 g/dL (13.5-17.5); MCH 29.7 pg (27.0-33.0); MCHC 33.7 % (32.0-36.0); MCV 88 fL (80-95); MPV 9.8 fL (8.0-11.0); Platelet Count 297 10^3/uL (130-400); RBC 3.16 10^6/uL (4.36-5.78); RDW 13.9 % (11.8-14.1); RDW-SD 45.2 fL; WBC 11.58 10^3/uL (4.4-10.8)
[2023-08-04 07:03] LABS: Anion Gap 8.2 mmol/L (3-11); BUN 11 mg/dL (7-18); CO2 25.8 mmol/L (21.0-32.0); CREATININE 0.9 mg/dL (0.70-1.30); Calcium 8.2 mg/dL (8.5-10.1); Chloride 101 mmol/L (98-107); Estimated GFR 99.62 (mL/min/1.73m2); Glucose 97 mg/dL (74-106); Potassium 3.7 mmol/L (3.5-5.1); Sodium 135 mmol/L (136-145)
[2023-08-04 07:55] VITALS: BP 146/72; PULSE 82; RESP 18; TEMP 37.5; O2SAT 94
[2023-08-04] MEDS: Acetaminophen 325 MG TAB PO (08:00)
[2023-08-04] MEDS: Polyethylene Glycol 3350 17 GM PACKET PO (08:00)
[2023-08-04] MEDS: Normal Saline Flush 10 ML SYR IVP (08:01)
[2023-08-04] MEDS: Docusate Sodium 100 MG CAP PO (08:01)
[2023-08-04] MEDS: Oxybutynin 5 MG TAB PO (08:01)
[2023-08-04] MEDS: Tamsulosin 0.4 MG CAPCR PO (08:01)
--- NOTE | 2023-08-04 11:28 | DSE_ITS ---
Date of service: 08/04/23 Time of Service: 07:00 DS: Diagnosis Discharge Diagnosis (1) Bladder cancer: Status: Acute (2) Hydronephrosis of left kidney: Status: Resolved Discharge Plan Disposition Patient Disposition: Home Condition: Improving Discharge Details Reason For Visit: left hydronephrosis status post TURBT Admit Date/Time: 08/01/23 20:06 Admit Provider: Lopez Odom Attending Provider: Lopez Odom Primary Care Provider: Wayne Hackett Hospital Course Hospital Course: The patient was admitted and given IV hydration, analgesics and antiemetics. We initially thought his hydronephrosis was related to postoperative edema and might improve on its own. When his symptoms persisted for greater than 24 hours, we contacted the interventional radiology service at [facility] and arranged for placement of a left nephrostomy tube. Once the tube was placed, the renal colic type symptoms improved. He no longer had vomiting and he was able to tolerate oral medications. He will be discharged to home with both the nephrostomy tube in place and his Coronado catheter in place. Home Meds and New Rx's Prescriptions: New oxycodone 5 mg tablet 5 - 10 mg PO Q6H PRN (Reason: pain) Qty: 30 0RF Rx Instructions: do not take with tramadol but may take with tylenol ondansetron 4 mg tablet,disintegrating 4 mg PO Q8H PRN (Reason: nausea and vomiting) Qty: 10 0RF Discontinued tramadol 50 mg Tablet 50 mg PO Q6H PRN PRNQty: 20 0RF No Action sulfamethoxazole-trimethoprim [Bactrim DS] 800-160 mg tablet 1 tab PO QHS Qty: 7 0RF oxybutynin chloride 5 mg tablet 5 mg PO Q6H PRN (Reason: bladder spasms) Qty: 30 1RF Discharge Instructions Additional Instructions: Nephrostomy tube to leg bag Coronado catheter to separate leg bag (catheter plug to the irrigation port on the Coronado) Keep your appointment for Sunday for urethral catheter removal Stand Alone Forms: Nursing Discharge Form Referrals: Lopez Odom MD [ [facility] STAFF PHYSICIAN] - (you already have an appointment scheduled for Sunday () per note ) Activity:: No lifting over 10 pounds Equipment/Supplies:: Catheter supplies Diet:: As Tolerated Discharge Orders Discharge Orders: Discharge Order (Routine); Ordered 08/04/23 Ordered By: Lopez Odom Discharge Data Discharge Date/Time-TO BE ENTERED AT DEPARTURE: 08/04/23 12:09 DS: Summary Time Spent with Patient providing and/or coordinating discharge services: Less than 30 minutes Status at Discharge Functional status at discharge: independent ambulation Overall status at discharge: patient is progressing back to baseline Mental Status: mental status grossly normal Speech and Movement: speech and movement normal Mood: congruent mood Affect: normal affect Quality:SDOH Health Related Social Needs: No Data to Display Exam Psych Mental Status: mental status grossly normal Speech and Movement: speech and movement normal Mood: congruent mood Affect: normal affect DS: Data Vitals/I&O Vitals and I&O: Vital Signs Temperature 37.5 C 08/04/23 07:55 Temperature Source Temporal Artery Scan 08/04/23 07:55 Pulse 82 08/04/23 07:55 Pulse Rhythm Regular 08/04/23 08:10 Respiratory Rate 18 08/04/23 07:55 Respiratory Effort Normal 08/04/23 08:10 Respiratory Depth Normal 08/04/23 08:10 Respiratory Pattern Normal 08/04/23 08:10 Blood Pressure 146/72 H 08/04/23 07:55 Pulse Oximetry 94 08/04/23 07:55 Oxygen Delivery Method Room Air 08/04/23 07:55 Oxygen Flow Rate 0 08/04/23 07:55 Pain Level 2 08/04/23 08:10 Intake & Output 08/03/23 08/03/23 08/04/23 11:59 23:59 11:59 Intake Total 2250 / 3440 1190 / 3440 10 10 Output Total 500 / 1300 800 / 1300 Balance 1750 / 2140 390 / 2140 10 Weight 73 kg Intake: IV 2050 / 3240 1190 / 3240 10 / 10 Oral 200 / 200 Output: Drainage 350 / 350 Left Flank 350 / 350 Urine 500 / 950 450 / 950 Other: Urine Color Robles Dark Red Dark Red Dark Red Urine Appearance Hematuria Clear Clear Clots Hematuria Comment Pt empties coronado independently. Adequate dark pink output, minimal clots seen. Data Completed and Pending Labs on day of discharge: Labs from last 24 hours 08/04/23 06:36 WBC 11.58 H RBC 3.16 L Hgb 9.4 L Hct 27.9 L MCV 88 MCH 29.7 MCHC 33.7 RDW 13.9 Plt Count 297 MPV 9.8 Sodium 135 L Potassium 3.7 Chloride 101 Carbon Dioxide 25.8 Anion Gap 8.2 BUN 11 Creatinine 0.9 Est GFR (CKD-EPI 2020) 99.62 Glucose 97 Calcium 8.2 L PFSH All Active Problems (Updated 08/05/23 @ 00:01 by MARCELA DELGADO) Bladder cancer (Acute) GERD (gastroesophageal reflux disease) (Chronic) Tobacco use disorder, continuous (Chronic) Medical History Bladder mass Hypertension Surgical History Hx of shoulder surgery right History of colonoscopy Hx of appendectomy Social History Smoking/Tobacco Use Status: Current every day Tobacco Type: cigarettes Tobacco: How many years used: 40 Smoking risk assessment performed?: Yes Alcohol Intake: current Alcohol Intake frequency: holidays/special occasions only Drug use: Never Substance use type: does not use Housing: house Additional Social history: [facility] Time Spent with Patient Time Spent with Patient: <45 minutes Time was spent: other
== END 2023-08-04 12:09 | disposition home or self-care (01) | DRG 694 ==
LOC: ER 18:41 → MS 21:49
PROVIDERS: Family Medicine; Admitting Provider Urology; Emergency Provider Emergency Medicine; PCP Family Medicine; Visit Provider Urology
DX: N13.30 Unspecified hydronephrosis (principal); N17.9 Acute kidney failure, unspecified; R31.0 Gross hematuria; I10 Essential (primary) hypertension; K21.9 Gastro-esophageal reflux disease without esophagitis; D72.829 Elevated white blood cell count, unspecified; C67.9 Malignant neoplasm of bladder, unspecified; F17.210 Nicotine dependence, cigarettes, uncomplicated; R11.2 Nausea with vomiting, unspecified
CPT/HCPCS: 00123; 36415; 76775; 80048; 80053; 85027; 96361; 96365; 96375; 96376; 99285; 71046; 74177; 81003; 81015; 83735; 85025; 87086; 93005; 93010; 99223; 99232; J0131; J0696; J2270; J2405; J3010; J3490

== ENCOUNTER 2023-09-06 16:10 | Outpatient (REF) | payer BC, SELFPAY | END 2023-09-06 16:11 | disposition home or self-care (01) | LOC: LBN 16:10 | PROVIDERS: PCP Family Medicine; Visit Provider Nurse Practitioner Gerontology | DX: R31.0 Gross hematuria (principal); C67.9 Malignant neoplasm of bladder, unspecified | CPT/HCPCS: 87086 ==

== ENCOUNTER 2023-12-31 06:13 | Day surgery (SDC) | payer BC, SELFPAY ==
[2023-12-31 06:20] VITALS: BP 148/88; PULSE 66; RESP 16; TEMP 35.8; O2SAT 99
[2023-12-31] MEDS: Lactated Ringers 1,000 ML 80 ML IV (06:46)
--- NOTE | 2023-12-31 06:55 | W.PM.HP.N ---
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 He was treated with an induction series of intravesical gemcitabine. He presents for cystoscopy and possible transurethral resection of any visible bladder tumor. Initially following his transurethral resection, he developed a left hydronephrosis and flank pain. He required a nephrostomy tube. Ultimately, the hydronephrosis resolved and the tube was removed. He is not having any flank pain at this time but does have some fullness sensation when his bladder is especially full. He has no gross hematuria. Review of Systems Narrative: No fevers or chills No vision change or dysphasia No diabetes or thyroid No shortness of breath, cough or hemoptysis No chest pain or palpitations GERD. No hepatitis, ulcers, jaundice No seizures, strokes or peripheral neuropathy No bleeding disorders or anemia No gout PFSH All Active Problems Bladder cancer (Acute) GERD (gastroesophageal reflux disease) (Chronic) Tobacco use disorder, continuous (Chronic) Medical History Bladder mass Hypertension Surgical History Hx of shoulder surgery right History of colonoscopy Hx of appendectomy Social History Smoking/Tobacco Use Status: Current every day Tobacco Type: cigarettes Tobacco: How many years used: 40 Smoking risk assessment performed?: Yes Alcohol Intake: current Alcohol Intake frequency: holidays/special occasions only Drug use: Never Substance use type: does not use Housing: house Do you feel safe at home: Yes Do you feel safe in your relationship?: Yes Meds Allergies and Home Medications Allergies Allergy/AdvReac Type Severity Reaction Status Date / Time No Known Allergies Allergy Verified 12/28/23 13:50 Home Medications ?Medication ?Instructions ?Recorded ?Confirmed ?Type oxybutynin chloride 5 mg tablet 5 mg PO Q6H PRN bladder spasms #30 07/31/23 12/28/23 Rx tabs oxycodone 5 mg tablet 5 - 10 mg (1 - 2 x 5 mg) PO Q6H 08/04/23 12/28/23 Rx PRN pain #30 tabs Exam Const General: cooperative Neck Neck: supple Resp Effort & Inspection: normal respiratory effort Auscultation: clear to auscultation bilaterally Cardio Rate: regular rate Rhythm: regular rhythm GI Palpation: soft Neuro General: patient alert, patient awake and patient oriented x3 Results Last Vital Signs Temp 35.8 C L 12/31/23 06:20 Pulse 66 12/31/23 06:20 Resp 16 12/31/23 06:20 BP 148/88 H 12/31/23 06:20 Pulse Ox 99 12/31/23 06:20 Time Spent Time spent with Patient: <40 minutes Time was spent: other
--- NOTE | 2023-12-31 07:04 | W.ANESPRE ---
General Info Date of Service Date Performed: 12/31/23 Height: 5 ft 10 in Weight: 72.3 kg Body Mass Index (BMI): 22.8 Surgical Procedure: Operation Date: 12/31/23 07:40 Proposed Procedure Side Surgeon p Cystoscopy with possible Transurethral Resection Bladder Tumor Lopez Odom MD Meds Allergies and Home Medications Allergies Allergy/AdvReac Type Severity Reaction Status Date / Time No Known Allergies Allergy Verified 12/28/23 13:50 Home Medication ?Medication ?Instructions ?Recorded oxybutynin chloride 5 mg tablet 5 mg PO Q6H PRN bladder spasms #30 07/31/23 tabs oxycodone 5 mg tablet 5 - 10 mg (1 - 2 x 5 mg) PO Q6H 08/04/23 PRN pain #30 tabs Current Visit Medications: Current Medications Generic Name Dose Route Start Last Admin Trade Name Freq PRN Reason Stop Dose Admin Ringer's Solution 1,000 mls @ 80 mls/hr 12/31/23 06:00 12/31/23 06:46 IV 12/31/23 23:59 80 mls/hr INFUSION HAYDEN Administration Cefazolin Sodium/Dextrose 2 gm in 50 mls @ 100 mls/hr 12/31/23 06:00 Ancef Duplex IVPB 12/31/23 23:59 PREOP HAYDEN IV Miscellaneous Supplies 1 each 12/31/23 06:00 Iv Access IV 12/31/23 23:59 DIRECTED HAYDEN Sodium Chloride 0 ml 12/31/23 06:00 Normal Saline Flush 10 Ml Syr IV 12/31/23 23:59 PRN PRN Sodium Chloride 0 ml 12/31/23 06:00 Normal Saline 10 Ml Vial IJ 12/31/23 23:59 DIRECTED PRN Sterile Water 0 ml 12/31/23 06:00 Water,Injection,Sterile 10 Ml Vial IJ 12/31/23 23:59 DIRECTED PRN PFSH Active Problems Active Problems: Problem Status Onset Code Bladder cancer Acute C67.9 GERD (gastroesophageal reflux disease) Chronic K21.9 Tobacco use disorder, continuous Chronic F17.209 Medical History Medical History Bladder mass Hypertension Surgical History Surgical History Hx of shoulder surgery right History of colonoscopy Hx of appendectomy Tobacco Smoking/Tobacco Use Status: Current every day Tobacco Type: cigarettes Alcohol Alcohol Intake: current Alcohol intake frequency: holidays/special occasions only Substance Use Substance use: Never Substance use type: does not use Vital Signs and Lab Results Vital Signs Most Recent Vital Signs in EMR: Most Recent Vital Signs Temp Pulse Resp BP Pulse Ox 35.8 C L 66 16 148/88 H 99 12/31/23 06:20 12/31/23 06:20 12/31/23 06:20 12/31/23 06:20 12/31/23 06:20 Lab Results Blood Type / Crossmatch: No Data to Display Complete Blood Count: No Data to Display Complete Metabolic Panel: No Data to Display Liver Function Panel: No Data to Display Coagulation Panel: No Data to Display Cardiac Panel: No Data to Display Arterial Blood Gas: No Data to Display Venous Blood Gas: No Data to Display Pancreas Panel: No Data to Display Thyroid Panel: No Data to Display Infectious Disease: No Data to Display Blood Cultures: No Data to Display Toxicology Panel: No Data to Display Imaging and Studies Imaging and Studies Study information below may be from another EMR and interpreted by another provider. Please see original notes in EMR for more complete details. EKG Summary: 08/02/23: Exam: Resting ECG Reason for Exam: epigstric pain, smoker Patient Location: I HR:61 bpm ECG Measurements Heart Rate 61 AXIS KS 148 P 63 QRSd 67 QRS 50 QT 368 T51 QTc 371 Conclusion Sinus rhythm...normal P axis, V-rate 50- 99 Normal Electrocardiogram Anesthesia Assessment and Plan Anesthesia History Personal History: No History of Anesthesia Complications Family History: No Family History of Anesthesia Complications Exercise Tolerance Exercise Tolerance: Metabolic Equivalents>4 Pertinent Negatives Pertinent Negatives: No Symptoms of GERD, No Major Cardiovascular Symptoms or Complaints and No Major Pulmonary Symptoms or Complaints Cardiac & Pulmonary Exam Cardiac Exam: Normal S1/S2 Heart Sounds Pulmonary Exam: Clear Bilateral Breath Sounds Implantable Cardiac Device Does patient have a Pacemaker or an ICD?: No Airway Exam Known Difficult Airway: No Mallampati Class: 1 Mouth Opening: Normal (> 3cm) Thyromental Distance: Greater than 3 cm Neck Range of Motion: Full ROM Neck Circumference: Normal Teeth Condition: Removable Dentures/Plates Upper and Edentulous ASA Classification ASA Score: ASA 2 Emergency Case?: No NPO Status NPO Status: NPO Clears >2 hours, Solids >8 hours Anesthesia Plan Resuscitation Status: Full Code Anesthesia Technique: General Anesthesia Airway Planned: LMA Monitors Used: Standard Monitors and SedLine
[2023-12-31 07:08] VITALS: BMI 22.8
[2023-12-31] MEDS: ceFAZolin 2 GM/50 ML BAG IVPB (07:34)
--- NOTE | 2023-12-31 07:50 | BLADDER_PTH ---
PATIENT: Joaquín Wolff LOC: [facility] U#:[id number] AGE/SX: 58/M ROOM: RE12/31/[address]: Lopez Odom MD : 1965 BED: DIS: 12/31/2023 SPEC #: [id number] RECD: 12/31/23 12:50 STATUS: CHAVA REQ #: [id number] OLIVIA: 12/31/23 07:[address]: Lopez Odom DEPT: Surgical Specimen RECD BY: Mary Jo Bowling ENTERED: 12/31/23 12:51 SP TYPE: Bladder OTHR DR: Wayne Hackett Tissues: 1 - BLADDER BIOPSY Procedures: GROSS AND MICRO LEVEL 5 Comments: [id number]
--- NOTE | 2023-12-31 07:50 | PAPNONF_PTH ---
PATIENT: Joaquín Wolff LOC: [facility] U#:[id number] AGE/SX: 58/M ROOM: RE12/31/[address]: Lopez Odom MD : 1965 BED: DIS: 12/31/2023 SPEC #: [id number] RECD: 12/31/23 13:06 STATUS: CHAVA REQ #: [id number] OLIVIA: 12/31/23 07:[address]: Lopez Odom DEPT: [facility] Cytology RECD BY: Mary Jo Bowling ENTERED: 12/31/23 13:06 SP TYPE: DMITRI PARDO DR: Wayne Hackett Tissues: 1 - BODY FLUID CYTO(SPUTUM/URINE)[facility] Procedures: BODY FLUID CYTO(URINE/SPUTUM) Comments: [id number] (TV = 65 ml, 30 ml CYTOLYT ADDED) (EFRIGERATED)
[2023-12-31] MEDS: Lidocaine 2% Jelly 6 ML SYR (07:59)
--- NOTE | 2023-12-31 08:06 | W.PM.DSUDISC ---
Date of service: 12/31/23 Time of Service: 08:06 Discharge Plan Disposition Patient Disposition: Home Condition: Stable Discharge Details Reason For Visit: cystoscopy with TUR Bladder tumor Attending Provider: Lopez Odom Primary Care Provider: Wayne Hackett Home Meds and New Rx's Prescriptions: No Action oxybutynin chloride 5 mg tablet 5 mg PO Q6H PRN (Reason: bladder spasms) Qty: 30 1RF oxycodone 5 mg tablet 5 - 10 mg PO Q6H PRN (Reason: pain) Qty: 30 0RF Rx Instructions: do not take with tramadol but may take with tylenol Discharge Instructions Additional Instructions: followup 1 to 2 weeks for pathology results (either in person or by phone) Activity:: Activity as Tolerated Shower/Bathe:: 24 hours Diet:: As Tolerated Discharge Orders Discharge Orders: Discharge Order (Routine); Ordered 12/31/23 Ordered By: Lopez Odom DS: Diagnosis Discharge Diagnosis (1) Bladder cancer: Status: Acute
--- NOTE | 2023-12-31 08:08 | ROE_ITS ---
Date of service: 12/31/23 Time of Service: 08:08 Operative Note Operative Note DATE OF PROCEDURE: 12/31/23 PRE-OP DIAGNOSIS: Bladder cancer POST-OP DIAGNOSIS: same PROCEDURE: cystoscopy with TUR Bladder tumor (2 to 5 cm) SURGEON: Lopez Odom ANESTHESIA TYPE: Local By Surgeon and General:No Airway Refer to Anesthesia Record ESTIMATED BLOOD LOSS: 5 PATHOLOGY: other (1. urine cytology 2. 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 He was treated with an induction series of intravesical gemcitabine. He presents now for surveillance cystoscopy and possible biopsy. Findings: 2 to 3 cm papillary lesion posterior bladder wall Procedure Description: The patient was given IV antibiotics and brought to the operating room on 12/31/2023. After successful induction of general anesthesia without intubation, he was placed in the dorsal lithotomy position. His genitalia was prepped and 2% Xylocaine jelly was instilled into the urethra to act as a local anesthetic. A 22 Nigerian rigid cystoscope was passed through the urethra into the bladder. The urethra and bladder were inspected with the 30 degree lens. The pendulous, bulbar and membranous urethra was all appeared normal with no strictures. The prostatic urethra showed some mild lateral lobe enlargement but no significant median lobe. Once the bladder neck was passed, we collected urine directly from the bladder and sent the urine for cytology. The bladder was then inspected using the 30 degree lens. There was a 2 to 3 cm papillary lesion on the posterior bladder wall with 2 additional less than 1 cm papillary lesions nearby. No recurrence of tumor was found at the previous resection site. The cystoscope was then withdrawn and a 24 Nigerian resectoscope sheath was passed through the urethra into the bladder. Transurethral resection of the visible tumor was then performed using an Pramana resectoscope and bipolar cautery. All resected tissue was evacuated and sent to pathology for permanent section. The resection site and any additional erythematous mucosa was cauterized with the coagulation current. The patient tolerated this procedure well with no complications. He was taken back to the day surgery unit in stable condition.
[2023-12-31 08:11] VITALS: BP 106/77; PULSE 72; RESP 18; TEMP 36.4; O2SAT 94
[2023-12-31] MEDS: Phenazopyridine 200 MG TAB PO (08:23)
[2023-12-31 08:31] VITALS: BP 130/89; PULSE 64; RESP 16; TEMP 36.1; O2SAT 96
--- NOTE | 2023-12-31 08:34 | W.ANESPOSTOP ---
Postoperative Evaluation Date, Time and Location Date Performed: 12/31/23 Time Performed: 08:34 Patient Location: Day Surgery Unit Vital Signs Most Recent Imported Vital Signs: Most Recent Vital Signs Temp Pulse Resp BP Pulse Ox 36.1 C L 64 16 130/89 96 12/31/23 08:31 12/31/23 08:31 12/31/23 08:31 12/31/23 08:31 12/31/23 08:31 Pain Score Most Recent Pain Score: Most Recent Pain Score Pain Level 0 12/31/23 08:31 Assessment Mental Status: Awake (Alert & Oriented to Patient Baseline) Airway and Respiratory Function: Patent airway with normal (patient baseline) respiratory exam Cardiovascular Function: Hemodynamically Stable Hydration Status: Adequately Hydrated Nausea & Vomiting: No Nausea or Vomiting Pain: Pt. Denies Any Pain Peripheral Nerve Block: Patient did not receive a nerve block
== END 2023-12-31 08:40 | disposition home or self-care (01) ==
PROVIDERS: PCP Family Medicine; Visit Provider Urology
PROC: 0TBB8ZZ Excision of Bladder, Via Natural or Artificial Opening Endoscopic (ICD-10-PCS; CPT 52235; principal; 2023-12-31 07:30)
DX: C67.4 Malignant neoplasm of posterior wall of bladder (principal); I10 Essential (primary) hypertension; F17.210 Nicotine dependence, cigarettes, uncomplicated; K21.9 Gastro-esophageal reflux disease without esophagitis
CPT/HCPCS: 52235; 88305; 88104; 88307; J0690; J1100; J2003; J2405; J2704; J3010

== ENCOUNTER 2024-02-18 09:12 | Emergency (ER) | payer BC, SELFPAY ==
[2024-02-18 09:27] VITALS: BP 166/97; PULSE 85; RESP 21; TEMP 36.8; O2SAT 99
--- NOTE | 2024-02-18 09:30 | DI.RAD_ITS ---
Exam(s) XR CHEST 2V PA LATERAL EXAM: XR CHEST 2V PA LATERAL CLINICAL HISTORY: cough. TECHNIQUE: 2D digital imaging was performed. COMPARISON: CR XR CHEST 2V PA LATERAL from 08/02/2023 FINDINGS: 2 views: Heart size is normal. The mediastinum is not widened. Bilateral hyperinflation noted but no confluent infiltrates nor pleural effusions. No pulmonary ayden a. No pneumothorax. No fractures. There is a subtle suggestion of a small noncalcified nodule in the right lung measuring 9 x 6 mm proj ected over the anterior aspect of the right 5th rib. Possibly significant. Not evident on prior lucius dy 08/02/2023. IMPRESSION: As above. Recommend follow-up CT scan DATA REPOSITORY: RADIATION DOSE DELIVERED:
--- NOTE | 2024-02-18 10:07 | ED.GENADUL_ITS ---
Discharge Plan Disposition Patient Disposition: Home Discharge Details Clinical Impression: Pulmonary nodule, Community acquired pneumonia Primary Care Provider: Wayne Hackett ED Provider: Jimbo Domínguez Home Meds and New Rx's Prescriptions: New amoxicillin 500 mg capsule 500 mg PO BID 5 Days Qty: 10 0RF doxycycline hyclate 100 mg capsule 100 mg PO BID 5 Days Qty: 10 0RF No Action oxybutynin chloride 5 mg tablet 5 mg PO Q6H PRN (Reason: bladder spasms) Qty: 30 1RF Discharge Instructions Instructions: Pneumonia in adults Additional Instructions: You were seen in the emergency department for your cough. Your chest x-ray did not show an obvious pneumonia however you are receiving antibiotics based on your symptoms that you should take for the next 5 days. As we discussed you also have a pulmonary nodule which is an unexpected abnormality that measures approximately 1 x 1 cm in your right lung for which you need a CAT scan. Please follow-up with your primary care provider concerning this incidental finding. As we discussed if you develop worsening fevers shortness of breath or chest pain please return to the emergency department. Otherwise please follow-up with your primary care provider. Discharge Data Discharge Date/Time-TO BE ENTERED AT DEPARTURE: 02/18/24 10:38 HPI General Date/Time Provider Initiated Documentation: 02/18/24 09:38 . HPI Narrative: MDM This is an overall very well-appearing normothermic and not tachycardic 58-year-old male with clinical diagnosis of pneumonia based on fevers cough decreased energy for which patient will receive double coverage with amoxicillin and doxycycline given comorbidities. He has not received systemic chemotherapy from his bladder cancer and as a result my suspicion is low for neutropenic fever so I did not order laboratory assessment. He did have 1 episode of emesis several nights ago after drinking water but has otherwise been tolerating p.o. and does not appear dehydrated so I did not feel he required assessment of his electrolytes. I considered obtaining labs to calculate a port score however based on his age of 58 and his ability to complete an ambulatory trial without desaturation I felt he was appropriate for empiric trial of discharge with expectant outpatient management. He was not tachycardic nor having chest pain so my suspicion was low for PE so I did not send a D-dimer. No trauma and equal breath sounds so doubt pneumothorax. Patient was found to have an incidental pulmonary nodule about which I told him. I also placed this information in his discharge. I advised him to follow-up with his primary care provider for a CAT scan. I also asked healthy air conditioning unit assembler Ade to have the patient seen in the next week by his PCP for reassessment PCP ordering of CT scan. I advised patient to return to the ED for any worsening symptoms including fevers chest pain shortness of breath or syncope. He understood his return indications and was discharged with an empiric trial of expectant outpatient management. HPI This is a 58-year-old male history of bladder cancer for which he has been treated with local chemotherapy around the emergency department via private vehicle in setting of intermittent cough fevers off and on for the past 5 to 6 weeks. He says that 10 days ago he had a fever. Has had decreased energy today felt lightheaded. 2 days ago he checked his temperature and it was elevated at 101.4 ?F. He vomited 2 nights ago after drinking a large amount of water. He has not taken any recent falls. He denies chest pain abdominal pain any persistent nausea vomiting and any significant shortness of breath. Exam General: Well-appearing in no acute distress speaking in complete sentences. Head: Normocephalic, atraumatic. Eye: Extraocular eye movements intact. No conjunctival injection. No scleral icterus. Ear, nose, mouth, throat: Grossly normal inspection. Normal voice, handling secretions normally. Neck: Trachea midline. Cardiovascular: Well-perfused distal extremities. Respiratory: Nonlabored respiration. Left lower lobe rhonchi. Otherwise clear lungs. No wheeze. No prolonged expiratory phase. Gastrointestinal: Nondistended abdomen. Musculoskeletal: No edema. Moving all 4 extremities spontaneously. Skin: Normal for age and race, grossly normal temperature and turgor. No acute rash. Neurologic: Alert and appropriate, no apparent acute deficits. Psychiatric: Mood and manner are appropriate. Grooming and personal hygiene are appropriate. Related Data Home Medications ?Medication ?Instructions ?Recorded ?Confirmed oxybutynin chloride 5 mg tablet 5 mg PO Q6H PRN bladder spasms #30 07/31/23 02/18/24 tabs amoxicillin 500 mg capsule 500 mg PO BID 5 days #10 caps 02/18/24 doxycycline hyclate 100 mg capsule 100 mg PO BID 5 days #10 caps 02/18/24 Previous Rx's ?Medication ?Instructions ?Recorded oxybutynin chloride 5 mg tablet 5 mg PO Q6H PRN bladder spasms #30 07/31/23 tabs amoxicillin 500 mg capsule 500 mg PO BID 5 days #10 caps 02/18/24 doxycycline hyclate 100 mg capsule 100 mg PO BID 5 days #10 caps 02/18/24 Allergies Allergy/AdvReac Type Severity Reaction Status Date / Time No Known Allergies Allergy Verified 02/18/24 09:34 General Stated Complaint: RespSymp VITO: 3 Course Vital Signs Vital signs: Vital Signs Temperature 36.8 C 02/18/24 09:27 Pulse 85 02/18/24 09:27 Respiratory Rate 21 02/18/24 09:27 Blood Pressure 166/97 H 02/18/24 09:27 Temperature 36.8 C 02/18/24 09:27 Temperature Source Oral 02/18/24 09:27 Pulse 85 02/18/24 09:27 Respiratory Rate 21 02/18/24 09:27 Respiratory Effort Normal, Non-Labored 02/18/24 09:58 Blood Pressure 166/97 H 02/18/24 09:27 Oxygen Delivery Method Room Air 02/18/24 09:27 Oxygen Flow Rate 0 02/18/24 09:27 Pain Level 0 02/18/24 09:27 Comment see triage vitals, no concern for sepsis at this time 02/18/24 09:58 Medical Decision Making Quality:SDOH Health Related Social Needs: No Data to Display PFSH All Active Problems (Updated 02/18/24 @ 10:16 by Jimbo Domínguez MD) Community acquired pneumonia (Acute) Pulmonary nodule (Acute) Bladder cancer (Acute) GERD (gastroesophageal reflux disease) (Chronic) Tobacco use disorder, continuous (Chronic) Medical History Bladder mass Hypertension Surgical History Hx of shoulder surgery right History of colonoscopy Hx of appendectomy Social History Smoking/Tobacco Use Status: Current every day Tobacco Type: cigarettes Tobacco: How many years used: 40 Smoking risk assessment performed?: Yes Alcohol Intake: current Alcohol Intake frequency: holidays/special occasions only Drug use: Never Substance use type: does not use Housing: house Do you feel safe at home: Yes Do you feel safe in your relationship?: Yes
[2024-02-18 10:25] VITALS: PULSE 88; PULSE 89; PULSE 92; RESP 16; RESP 17; RESP 18; O2SAT 100; O2SAT 97
[2024-02-18 10:30] VITALS: BP 142/92; PULSE 92; RESP 16; TEMP 36.3; O2SAT 98
== END 2024-02-18 10:38 | disposition home or self-care (01) ==
PROVIDERS: Emergency Provider Emergency Medicine; PCP Family Medicine
DX: J18.9 Pneumonia, unspecified organism (principal); R91.1 Solitary pulmonary nodule; C67.9 Malignant neoplasm of bladder, unspecified; I10 Essential (primary) hypertension; F17.210 Nicotine dependence, cigarettes, uncomplicated; Z92.21 Personal history of antineoplastic chemotherapy
CPT/HCPCS: 87426; 99284; 71046

== ENCOUNTER 2024-03-01 12:52 | Emergency (ER) | payer BC, SELFPAY ==
[2024-03-01 13:00] VITALS: BP 152/98; PULSE 79; RESP 16; TEMP 36.6; O2SAT 97
--- NOTE | 2024-03-01 13:00 | DI.RAD_ITS ---
Exam(s) XR WRIST RT COMPL NAVICULAR EXAM: XR WRIST RT COMPL NAVICULAR CLINICAL HISTORY: R wrist pain. TECHNIQUE: 2D digital imaging was performed of the right wrist. Four views were obtained. Scaphoid, PA, lateral and oblique views were obtained. COMPARISON: No exams were available for comparison FINDINGS: BONES: No acute fracture is present. No bony destructive lesion is seen. JOINTS: The carpal bones are normally aligned. SOFT TISSUE: Normal. There are few tiny well corticated osseous densities lateral to the scaphoid whi ch appear chronic. IMPRESSION: No acute fracture or dislocation. DATA REPOSITORY: RADIATION DOSE DELIVERED:
--- NOTE | 2024-03-01 13:11 | ED.GENADUL_ITS ---
Discharge Plan Disposition Patient Disposition: Home Condition: Stable Discharge Details Clinical Impression: Sprain of right wrist Primary Care Provider: Wayne Hackett ED Provider: Dave Lozano Home Meds and New Rx's Prescriptions: No Action oxybutynin chloride 5 mg tablet 5 mg PO Q6H PRN (Reason: bladder spasms) Qty: 30 1RF Discharge Instructions Instructions: Wrist Sprain ED Additional Instructions: You were seen in the emergency department for your right wrist injury. There is no acute fracture on x-ray, please continue to rest, ice, elevate and remain in your wrist brace. Take Tylenol and ibuprofen as needed for pain, please follow- up with orthopedics for pain lasting longer than 2 weeks. Referrals: [facility] [Provider Group] Wayne Hackett MD [Primary Care Provider] - Discharge Data Discharge Date/Time-TO BE ENTERED AT DEPARTURE: 03/01/24 15:09 HPI General Date/Time Provider Initiated Documentation: 03/01/24 13:11 . HPI Narrative: 58 year-old male presents to ED today by POV/ambulating with a chief complaint of R wrist pain- R-hand dominant with onset a couple days ago when he bonked his arm on a metal door on ulnar aspect of wrist. Quality described as very painful, no radiation to swelling, bruising, numbness, deformity. Severity is described as severe/10. Palliating factors include ice and ibuprofen with mild relief. Provoking factors include movement. Patient not anticoagulated. Related Data Home Medications ?Medication ?Instructions ?Recorded ?Confirmed oxybutynin chloride 5 mg tablet 5 mg PO Q6H PRN bladder spasms #30 07/31/23 03/01/24 tabs Previous Rx's ?Medication ?Instructions ?Recorded oxybutynin chloride 5 mg tablet 5 mg PO Q6H PRN bladder spasms #30 07/31/23 tabs Allergies Allergy/AdvReac Type Severity Reaction Status Date / Time No Known Allergies Allergy Verified 03/01/24 13:07 General Stated Complaint: Orthopedic VITO: 4 Review of Systems All systems reviewed & are unremarkable except as noted in HPI and below Exam Narrative Exam Narrative: GENERAL APPEARANCE: Well-nourished, non-toxic, awake and alert, atraumatic, no acute distress. SKIN: Warm, pink, dry, intact, without rashes/lesions/ulcerations. HEAD: Normocephalic, atraumatic, normal hair distribution for gender/age. EYES: Normal conjunctiva, no exudates on lids/lashes. ENT: Nares patent, no circumoral cyanosis, no facial swelling NECK: Supple, trachea midline, painless cervical ROM. LUNGS/CHEST: Non-labored respirations, normal A/P diameter, symmetrical expansion, no chest wall deformity HEART (CV/PV): Regular rate, no peripheral edema, no JVD. ABDOMEN: Soft, non-distended, no guarding. 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 Motor: No focal weakness - strength 5/5 in bilateral UEs and LEs, proximal and distal, symmetric. Sensory: sensation intact to light touch globally. Gait normal: patient ambulated without ataxia into ED room. PSYCH: euthymic, cooperative, pleasant, appropriate speech Course Vital Signs Vital signs: Vital Signs Temperature 36.6 C 03/01/24 13:00 Pulse 79 03/01/24 13:00 Respiratory Rate 16 03/01/24 13:00 Blood Pressure 152/98 H 03/01/24 13:00 Pulse Oximetry 97 03/01/24 13:00 Temperature 36.6 C 03/01/24 13:00 Pulse 79 03/01/24 13:00 Respiratory Rate 16 03/01/24 13:00 Blood Pressure 152/98 H 03/01/24 13:00 Blood Pressure Position Sitting 03/01/24 13:00 Pulse Oximetry 97 03/01/24 13:00 Oxygen Delivery Method Room Air 03/01/24 13:00 Oxygen Flow Rate 0 03/01/24 13:00 Pain Level 10 03/01/24 13:07 Medical Decision Making This dictation utilizes [id number] dictation software and may contain unedited grammatical errors. 58 year-old male presents to ED today by POV/ambulating with a chief complaint of R wrist pain- R-hand dominant with onset a couple days ago when he bonked his arm on a metal door on ulnar aspect of wrist. Quality described as very painful, no radiation to swelling, bruising, numbness, deformity. Severity is described as severe/10. Palliating factors include ice and ibuprofen with mild relief. Provoking factors include movement. Patients' medical history: noncontributory. Family and social history: noncontributory. 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 Differential / pathologies of concern include fracture, sprain/strain. Diagnostic studies of: -XR R Wrist - no acute fracture. Interventions of: -thumb spica brace. ED Course/Assessment/Plan: 58-year-old male bumped his right wrist on a metal door, having limited range of motion and slightly to pain, placed him in a thumb spica wrist splint for symptomatic relief, counseled on RICE therapy and therapeutic dosing Tylenol and ibuprofen and the need to follow-up with possible repeat imaging in 7 to 10 days via outpatient study, strict return criteria for signs of neurovascular compro mise or infection. Findings not consistent with fracture/NV compromise. Disposition of Sprain of Right Wrist. Patient verbalized understanding of the plan and return to ED criteria and engaged in shared decision making. Medical Records Medical records reviewed: Yes I reviewed the patient's medical records. Imaging Data Radiologic Study: Attestation: I personally reviewed and interpreted this imaging study as follows: Imaging: X-Ray Radiologist's impression: Exam: XR Right Wrist Exam date and time: 03/01/2024 1:30 PM Age: 58 years old Clinical indication: Injury or trauma; Other: Jammmed with door; Blunt trauma (contusions or hematomas); Wrist; Right TECHNIQUE: Imaging protocol: Radiologic exam of the right wrist. Views: 3 or more views. COMPARISON: No relevant prior studies available. FINDINGS: Bones/joints: Unremarkable. Soft tissues: Unremarkable. IMPRESSION: No evidence for acute bony injury. If clinical symptoms persist recommend followup film in 7-10 days. Dictated and Authenticated by: Bina Campoverde MD. Quality:SDOH Health Related Social Needs: No Data to Display PFSH All Active Problems (Updated 03/01/24 @ 15:03 by MARIA VICTORIA Colindres) Sprain of right wrist (Acute) Community acquired pneumonia (Acute) Pulmonary nodule (Acute) Bladder cancer (Acute) GERD (gastroesophageal reflux disease) (Chronic) Tobacco use disorder, continuous (Chronic) Medical History Bladder mass Hypertension Surgical History Hx of shoulder surgery right History of colonoscopy Hx of appendectomy Social History Smoking/Tobacco Use Status: Current every day Tobacco Type: cigarettes Tobacco: How many years used: 40 Smoking risk assessment performed?: Yes Alcohol Intake: current Alcohol Intake frequency: holidays/special occasions only Drug use: Never Substance use type: does not use Housing: house Do you feel safe at home: Yes Do you feel safe in your relationship?: Yes
[2024-03-01] MEDS: Acetaminophen 500 MG TAB 1000 MG PO (14:31)
--- NOTE | 2024-03-01 14:46 | DI.VRAD_ITS ---
PROCEDURE INFORMATION: Exam: XR Right Wrist Exam date and time: 03/01/2024 1:30 PM Age: 58 years old Clinical indication: Injury or trauma; Other: Jammmed with door; Blunt trauma (contusions or hematomas); Wrist; Right TECHNIQUE: Imaging protocol: Radiologic exam of the right wrist. Views: 3 or more views. COMPARISON: No relevant prior studies available. FINDINGS: Bones/joints: Unremarkable. Soft tissues: Unremarkable. IMPRESSION: No evidence for acute bony injury. If clinical symptoms persist recommend followup film in 7-10 days. Dictated and Authenticated by: Bina Campoverde MD. Ordering:SANDRA Acosta MD
[2024-03-01 15:09] VITALS: BP 160/79; PULSE 80; RESP 16; O2SAT 95
--- NOTE | 2024-03-02 16:23 | NUR.NOTE ---
Accessed chart for [facility] billing purposes.Nursing Note:
== END 2024-03-01 15:09 | disposition home or self-care (01) ==
PROVIDERS: Emergency Provider Physician Assistant; PCP Family Medicine
DX: S63.501A Unspecified sprain of right wrist, initial encounter (principal); W20.8XXA Other cause of strike by thrown, projected or falling object, initial encounter
CPT/HCPCS: 29130; 99283; 73110

== ENCOUNTER 2024-06-09 07:34 | Day surgery (SDC) | payer BC, SELFPAY ==
--- NOTE | 2024-06-09 06:35 | W.ANESPRE ---
General Info Date of Service Date Performed: 06/09/24 Height: 5 ft 10 in Weight: 71.214 kg Body Mass Index (BMI): 22.5 Surgical Procedure: Operation Date: 06/09/24 09:40 Proposed Procedure Side Surgeon p Cystoscopy w/Transurethral Resection Bladder Tumor Lopez Odom MD Meds Allergies and Home Medications Allergies Allergy/AdvReac Type Severity Reaction Status Date / Time No Known Allergies Allergy Verified 06/09/24 07:49 Home Medication ?Medication ?Instructions ?Recorded Unknown [No Known Home Meds] 06/06/24 Current Visit Medications: Current Medications Generic Name Dose Route Start Last Admin Trade Name Freq PRN Reason Stop Dose Admin Ringer's Solution 1,000 mls @ 80 mls/hr 06/09/24 06:00 IV 06/09/24 23:59 INFUSION HAYDEN Cefazolin Sodium/Dextrose 2 gm in 50 mls @ 100 mls/hr 06/09/24 06:00 Ancef Duplex IVPB 06/09/24 23:59 PREOP HAYDEN IV Miscellaneous Supplies 1 each 06/09/24 06:00 Iv Access IV 06/09/24 23:59 DIRECTED HAYDEN Sodium Chloride 0 ml 06/09/24 06:00 Normal Saline Flush 10 Ml Syr IV 06/09/24 23:59 PRN PRN Sodium Chloride 0 ml 06/09/24 06:00 Normal Saline 10 Ml Vial IJ 06/09/24 23:59 DIRECTED PRN Sterile Water 0 ml 06/09/24 06:00 Water,Injection,Sterile 10 Ml Vial IJ 06/09/24 23:59 DIRECTED PRN PFSH Active Problems Active Problems: Problem Status Onset Code Bladder cancer Acute C67.9 GERD (gastroesophageal reflux disease) Chronic K21.9 Tobacco use disorder, continuous Chronic F17.209 Medical History Medical History MALLORY (acute kidney injury) Hematuria Bladder mass Hypertension Surgical History Surgical History H/O transurethral resection of bladder tumor (TURBT) Hx of shoulder surgery right History of colonoscopy Hx of appendectomy Tobacco Smoking/Tobacco Use Status: Current every day Tobacco Type: cigarettes Passive smoking exposure: Yes Alcohol Alcohol Intake: never Substance Use Substance use: Never Substance use type: does not use Vital Signs and Lab Results Lab Results Blood Type / Crossmatch: No Data to Display Complete Blood Count: No Data to Display Complete Metabolic Panel: No Data to Display Liver Function Panel: No Data to Display Coagulation Panel: No Data to Display Cardiac Panel: No Data to Display Arterial Blood Gas: No Data to Display Venous Blood Gas: No Data to Display Pancreas Panel: No Data to Display Thyroid Panel: No Data to Display Infectious Disease: No Data to Display Blood Cultures: No Data to Display Toxicology Panel: No Data to Display Imaging and Studies Imaging and Studies Study information below may be from another EMR and interpreted by another provider. Please see original notes in EMR for more complete details. EKG Summary: 08/02/23: Exam: Resting ECG Reason for Exam: epigstric pain, smoker Patient Location: I HR:61 bpm ECG Measurements Heart Rate 61 AXIS NV 148 P 63 QRSd 67 QRS 50 QT 368 T51 QTc 371 Conclusion Sinus rhythm...normal P axis, V-rate 50- 99 Normal Electrocardiogram Anesthesia Assessment and Plan Anesthesia History Personal History: No History of Anesthesia Complications Family History: No Family History of Anesthesia Complications Exercise Tolerance Exercise Tolerance: Metabolic Equivalents>4 Cardiac & Pulmonary Exam Cardiac Exam: Normal S1/S2 Heart Sounds Pulmonary Exam: Clear Bilateral Breath Sounds Implantable Cardiac Device Does patient have a Pacemaker or an ICD?: No Airway Exam Known Difficult Airway: No Mallampati Class: 1 Mouth Opening: Normal (> 3cm) Thyromental Distance: Greater than 3 cm Neck Range of Motion: Full ROM Neck Circumference: Normal Teeth Condition: Removable Dentures/Plates Upper, Removable Dentures/Plates Lower and Edentulous ASA Classification ASA Score: ASA 2 Emergency Case?: No NPO Status NPO Status: NPO Clears >2 hours, Solids >8 hours Anesthesia Plan Resuscitation Status: Full Code Anesthesia Technique: General Anesthesia Airway Planned: Natural Airway Monitors Used: Standard Monitors Preoperative Comments:: 59 yo male for cysto. Sig PMHx: HTN (no meds), GERD (denies issues), emphysema (based off CT, was unaware). EKG: sinus CT chest: mod severe centrilobular emphysema. pulmonary nodules. Previous Anes: - TURBT, fent, prop, natural airway, no issues. - TURBT, dex, ketamine, prop, glide 3 grade 1, easy mask with OPA.
[2024-06-09 07:53] VITALS: BP 158/91; PULSE 75; RESP 18; TEMP 36.6; O2SAT 99
[2024-06-09] MEDS: Lactated Ringers 1,000 ML 80 ML IV (08:22)
[2024-06-09 08:26] VITALS: BMI 22.5
--- NOTE | 2024-06-09 08:35 | W.PM.HP.N ---
Date of service: 06/09/24 Time of Service: 08:35 Assessment and Plan Assessment and plan (1) Bladder cancer: Status: Acute Assessment and plan: For cystoscopy and transurethral resection of bladder tumor. Subsequent treatments will depend on the pathology. History of Present Illness History of Present Illness Chief Complaint: Bladder cancer Narrative: Chief complaint: Bladder cancer This is a 59-year-old gentleman who has a history of high-grade urothelial cell carcinoma. His initial tumor involve the lamina propria and he was treated with an induction series of intravesical gemcitabine. He then had a recurrence of high-grade noninvasive urothelial cell carcinoma. He then completed an induction series of BCG. On surveillance cystoscopy, we identified recurrent tumor. He presents for TURBT. Review of Systems Narrative: No fevers or chills No vision change or dysphasia No diabetes or thyroid dysfunction No shortness of breath, cough or hemoptysis No chest pain or palpitations GERD. No hepatitis, ulcers, jaundice, diarrhea or constipation No seizures, strokes or peripheral neuropathy No bleeding disorders or anemia No gout PFSH All Active Problems Bladder cancer (Acute) GERD (gastroesophageal reflux disease) (Chronic) Tobacco use disorder, continuous (Chronic) Medical History MALLORY (acute kidney injury) Hematuria Bladder mass Hypertension Surgical History H/O transurethral resection of bladder tumor (TURBT) Hx of shoulder surgery right History of colonoscopy Hx of appendectomy Social History Smoking/Tobacco Use Status: Current every day Tobacco Type: cigarettes Tobacco: How many years used: 40 Smoking risk assessment performed?: Yes Alcohol Intake: never Drug use: Never Substance use type: does not use Housing: house Do you feel safe at home: Yes Do you feel safe in your relationship?: Yes Additional Social history: UTAP Meds Allergies and Home Medications Allergies Allergy/AdvReac Type Severity Reaction Status Date / Time No Known Allergies Allergy Verified 06/09/24 07:49 Home Medications ?Medication ?Instructions ?Recorded ?Confirmed ?Type Unknown [No Known Home Meds] 06/06/24 06/06/24 History Exam Const General: cooperative and comfortable Neck Neck: normal visual inspection and supple Resp Effort & Inspection: normal respiratory effort Auscultation: clear to auscultation bilaterally Cardio Rate: regular rate Rhythm: regular rhythm GI Palpation: soft and no masses Neuro General: patient alert, patient awake and patient oriented x3 Results Last Vital Signs Temp 36.6 C 06/09/24 07:53 Pulse 75 06/09/24 07:53 Resp 18 06/09/24 07:53 BP 158/91 H 06/09/24 07:53 Pulse Ox 99 06/09/24 07:53 Time Spent Time spent with Patient: <40 minutes Time was spent: other
[2024-06-09] MEDS: ceFAZolin 2 GM/50 ML BAG IVPB (08:50)
[2024-06-09] MEDS: Lidocaine 2% Jelly 6 ML SYR (09:07)
--- NOTE | 2024-06-09 09:10 | BLADDER_PTH ---
PATIENT: Joaquín Wolff LOC: [facility] U#:[id number] AGE/SX: 59/M ROOM: RE06/09/[address]: Lopez Odom MD : 1965 BED: DIS: 06/09/2024 SPEC #: [id number] RECD: 06/09/24 13:02 STATUS: CHAVA REAshutosh #: [id number] OLIVIA: 06/09/24 09:[address]: Lopez Odom DEPT: Surgical Specimen RECD BY: Mary Jo Bowling ENTERED: 06/09/24 13:03 SP TYPE: Bladder OTHR DR: Wayne Hackett Tissues: 1 - BLADDER BIOPSY Procedures: GROSS AND MICRO LEVEL 4 Comments: [id number]
[2024-06-09 09:28] VITALS: BP 115/79; PULSE 82; RESP 16; TEMP 36.5; O2SAT 93
--- NOTE | 2024-06-09 09:29 | W.PM.DSUDISC ---
Date of service: 06/09/24 Discharge Plan Disposition Patient Disposition: Home Condition: Stable Discharge Details Reason For Visit: bladder tumors Attending Provider: Lopez Odom Primary Care Provider: Wayne Hackett Home Meds and New Rx's Prescriptions: No Action No Known Home Meds Discharge Instructions Additional Instructions: Olsen catheter to gravity (either leg bag or large drainage bag) Olsen catheter removal in 3 to 7 days Additional follow-up appointment in about 2 weeks to review the pathology results Activity:: Activity as Tolerated Shower/Bathe:: 24 hours Diet:: As Tolerated Discharge Orders Discharge Orders: Discharge Order (Routine); Ordered 06/09/24 Ordered By: Lopez Odom DS: Diagnosis Discharge Diagnosis (1) Bladder cancer: Status: Acute
--- NOTE | 2024-06-09 09:32 | ROE_ITS ---
Operative Note Operative Note PRE-OP DIAGNOSIS: bladder cancer POST-OP DIAGNOSIS: same PROCEDURE: cystoscopy with transurethral resection of small bladder tumors (< 2cm) SURGEON: Lopez Odom ANESTHESIA TYPE: Local By Surgeon and General:No Airway Refer to Anesthesia Record ESTIMATED BLOOD LOSS: 5 PATHOLOGY: other (bladder tumor) COMPLICATIONS: None Patient was transported to: same day Patient's condition: stable Implants: 16 Chinese coronado catheter with 10 cc sterile water in balloon Indications: This is a 59-year-old gentleman who has a history of high-grade urothelial cell carcinoma of the bladder. His initial tumor involve the lamina propria, so he was treated with an induction series of intravesical gemcitabine. He did have a recurrence, but his recurrent tumor showed high-grade tumor that was not invasive. He then underwent an induction series of intravesical BCG. He again had evidence of tumor recurrence on surveillance cystoscopy. He presents now fo r transurethral resection of these tumors. Findings: Multiple small papillary tumors (less than 2 cm) Procedure Description: The patient was given antibiotics and brought to the operating room on 06/09/2024. After successful induction of general anesthesia, he was placed in the dorsal lithotomy position. His genitalia was prepped and draped. 2% Xylocaine jelly was instilled into the urethra to act as a local anesthetic. A 24 Chinese resectoscope sheath was passed through the urethra into the bladder. The urethra and bladder were inspected with the 30 degree lens. The pendulous, bulbar and membranous urethra is appeared normal with the exception of a slight narrowing in the bulbar urethra. I was able to dilate the area with the resectoscope sheath. The prostatic urethra showed some lateral lobe enlargement but no papillary lesions on the prostatic urethral mucosa. The bladder neck was then entered and the bladder mucosa was inspected. The entire left wall of the bladder was significant for scar from his initial transurethral resection. A few small papillary lesions were seen adjacent to the previous scar. No concerning lesions were seen up toward the dome or on the right wall of the bladder. Using an [employer] resectoscope and bipolar cautery, we resected the visible tumor. We evacuated the resected tissue and sent the tumor off for permanent section. Additional erythematous areas of mucosa were cauterized using the coagulation current. At the completion of the procedure, hemostasis was excellent, but there was evidence of pericystic fat cystoscopically. We decided to place a Coronado catheter to allow the bladder to heal. The bladder was filled with irrigant and a 16 Chinese Coronado catheter was passed through the urethra into the bladder. The catheter balloon was inflated with 10 cc of sterile water and the catheter was hooked to gravity drainage. The patient tolerated this procedure well with no complications. Date of Procedure: 06/09/24
[2024-06-09] MEDS: Phenazopyridine 200 MG TAB PO (09:40)
--- NOTE | 2024-06-09 09:41 | W.ANESPOSTOP ---
Postoperative Evaluation Date, Time and Location Date Performed: 06/09/24 Time Performed: 09:41 Patient Location: Day Surgery Unit Vital Signs Most Recent Imported Vital Signs: Most Recent Vital Signs Temp Pulse Resp BP Pulse Ox 36.5 C 82 16 115/79 93 06/09/24 09:28 06/09/24 09:28 06/09/24 09:28 06/09/24 09:28 06/09/24 09:28 Pain Score Most Recent Pain Score: Most Recent Pain Score Pain Level 0 06/09/24 09:28 Assessment Mental Status: Awake (Alert & Oriented to Patient Baseline) Airway and Respiratory Function: Patent airway with normal (patient baseline) respiratory exam Cardiovascular Function: Hemodynamically Stable Hydration Status: Adequately Hydrated Nausea & Vomiting: No Nausea or Vomiting Pain: Pain is tolerable per patient Peripheral Nerve Block: Patient did not receive a nerve block
[2024-06-09 10:09] VITALS: BP 148/94; PULSE 75; RESP 16; TEMP 36.5; O2SAT 97
== END 2024-06-09 10:41 | disposition home or self-care (01) ==
PROVIDERS: PCP Family Medicine; Visit Provider Urology
PROC: 0TBB8ZZ Excision of Bladder, Via Natural or Artificial Opening Endoscopic (ICD-10-PCS; CPT 52234; principal; 2024-06-09 09:30)
DX: C67.9 Malignant neoplasm of bladder, unspecified (principal); I10 Essential (primary) hypertension; K21.9 Gastro-esophageal reflux disease without esophagitis
CPT/HCPCS: 52234; 88305; J0131; J0690; J1100; J1885; J2003; J2250; J2405; J2704; J3010

== ENCOUNTER 2024-08-05 14:45 | Emergency (ER) | payer BC, SELFPAY ==
[2024-08-05] VITALS (14 sets, daily range): BP systolic 128–164; BP diastolic 74–91; PULSE 74–103; RESP 14–34; TEMP 36.6; O2SAT 94–98
--- NOTE | 2024-08-05 15:30 | DI.CT_ITS ---
Exam(s) CT BRAIN NECK CTA EXAM: CT BRAIN NECK CTA CLINICAL HISTORY: intermittent neuro symptoms. TECHNIQUE: Imaging Protocol: Axial CT angiography was performed with multi-slice acquisition and mu lti-planar and MIP reconstructions. CONTRAST MATERIAL: Intravenous: Omnipaque 350 Contrast volume:70 ml COMPARISON: No exams were available for comparison FINDINGS: CT Head W/O and W contrast: Ventricles and Extra axial spaces: Normal in size and morphology for the patient's age. Hemorrhage: None. Cerebral parenchyma: No evidence of acute infarct or mass. Midline shift: None. Brainstem/Cerebellum: No acute findings.. Calvarium: Normal. Visualized Paranasal sinuses/Mastoids: Clear. Soft Tissues: Unremarkable. Enhancement: Normal. Venous sinuses are patent. CTA Brain W: Internal Carotid Arteries: Right: No aneurysm, occlusion or significant stenosis. Left: No aneurysm, occlusion or significant stenosis. Middle Cerebral Arteries: Right: No aneurysm, occlusion or significant stenosis. Left: No aneurysm, occlusion or significant stenosis. Anterior Cerebral Arteries: Right: No aneurysm, occlusion or significant stenosis. Left: No aneurysm, occlusion or significant stenosis. Posterior cerebral Arteries: Right: No aneurysm, occlusion or significant stenosis. Left: No aneurysm, occlusion or significant stenosis. Vertebral Arteries: Right: No aneurysm, occlusion or significant stenosis. Left: No aneurysm, occlusion or significant stenosis. Basilar Artery: No aneurysm, occlusion or significant stenosis. CTA Neck W: Common Carotid: Right: No dissection, occlusion or significant stenosis. Left: No dissection, occlusion or significant stenosis. External Carotid: Right: No dissection, occlusion or significant stenosis. Left: No dissection, occlusion or significant stenosis. Internal Carotid: Right: No dissection, occlusion or significant stenosis. Left: No dissection, occlusion or significant stenosis. Vertebral Artery: Right: No dissection, occlusion or significant stenosis. Left: No dissection, occlusion or significant stenosis. Lung Apices: No acute findings. Bones: No acute abnormality. Soft Tissues: Normal. IMPRESSION: 1. CTA brain: Normal CTA examination of the [place]. 2. Head CT: No acute abnormality. 3. CTA neck: No evidence of occlusion, significant stenosis or dissection. RADIATION DOSE DELIVERED: Total DLP DATA REPOSITORY: All CT scans at this facility are submitted to the National Radiology Data Registry (NRDR) Dose Index Registry (DIR) with the [employer] (ACR). RADIATION OPTIMIZATION: All CT scans at this facility use at least one of these dose optimization te chniques: automated exposure control; mA and/or kV adjustment per patient size (includes targeted exa ms where dose is matched to clinical indication); or iterative reconstruction.
[2024-08-05 16:06] LABS: Abs Immature Grans 0.02 10^3/uL (0.0-0.06); Absolute Basophil Count 0.12 10^3/uL (0.0-0.2); Absolute Eosinophil Count 0.41 10^3/uL (0.0-0.7); Absolute Monocyte Count 0.73 10^3/uL (0.1-0.8); Absolute Neutrophil Count 3.52 10^3/uL (1.2-6.7); Basophils % 1.5 %; HCT 41.2 % (40.0-50.0); HGB 13.8 g/dL (13.5-17.5); Immature Grans % 0.2 %; Lymphocytes % 41.5 %; MCHC 33.5 % (32.0-36.0); MCV 87 fL (80-95); Monocytes % 8.9 %; Neutrophils % 42.9 %; Platelet Count 317 10^3/uL (130-400); RBC 4.76 10^6/uL (4.36-5.78); RDW 14.6 % (11.8-14.1); RDW-SD 46.5 fL
[2024-08-05 16:17] LABS: Prothrombin Time 10.1 sec (9.1-11.1)
[2024-08-05 16:23] LABS: ALT 14 U/L (16-63); AST 17 U/L (15-37); Albumin 3.5 g/dL (3.4-5.0); Alkaline Phosphatase 68 U/L (46-116); Anion Gap 8.4 mmol/L (3-11); BUN 12 mg/dL (7-18); Bilirubin, Total 0.4 mg/dL (0.2-1.0); CO2 26.6 mmol/L (21.0-32.0); CREATININE 1.1 mg/dL (0.70-1.30); Calcium 8.9 mg/dL (8.5-10.1); Chloride 103 mmol/L (98-107); Estimated GFR 77.81 (mL/min/1.73m2); Glucose 92 mg/dL (74-106); Magnesium 2.1 mg/dL (1.8-2.4); Potassium 3.7 mmol/L (3.5-5.1); Sodium 138 mmol/L (136-145); Total Protein 7.2 g/dL (6.4-8.2); Troponin I 7 ng/L (<or=76)
[2024-08-05 16:41] LABS: Hemoglobin A1C 5.7 % (<5.7)
[2024-08-05] MEDS: Normal Saline - Diluent 50 ML VIAL IJ (16:49)
[2024-08-05 16:50] LABS: Bilirubin Negative (Negative); Blood Trace-intact (Negative); Clarity Clear (Clear); Glucose Negative (Negative); Ketones Negative (Negative); Leukocyte Esterase Negative (Negative); Nitrite Negative (Negative); Specific Gravity >= 1.030 (1.005-1.025)
[2024-08-05] MEDS: Omnipaque 350 MG/ML 100 ML BTL IJ (16:50)
[2024-08-05 17:00] LABS: Bacteria Rare HPF (Negative); C & S Indicated? No; Casts Negative LPF (Negative); Crystals Negative HPF (Negative); Epithelial Cells Rare HPF (Negative); Mucus Trace (Negative); WBC Negative HPF (0-5)
[2024-08-05 17:03] LABS: *AMPHETAMINES SCREEN URINE Negative (Negative); *BARBITURATES SCREEN URINE Negative (Negative); *BENZODIAZEPINES SCREEN URINE Negative (Negative); Cannabinoids THC Positive (Negative); Cocaine Screen,Urine Negative (Negative); METHADONE URINE SCREEN Negative (Negative); OPIATES URINE SCREEN Negative (Negative); Tricyclic Antidepressants Negative (Negative)
[2024-08-05 17:11] LABS: NT-proBNP 71 pg/mL (<300)
[2024-08-05] MEDS: Aspirin 325 MG TAB PO (18:40)
--- NOTE | 2024-08-05 19:21 | W.ED.GENAD ---
Discharge Plan Disposition Patient Disposition: Against Medical Advice Discharge Details Clinical Impression: Headache, Visual changes Primary Care Provider: Wayne Hackett ED Provider: Delia Wagner Home Meds and New Rx's Prescriptions: No Action No Known Home Meds Discharge Instructions Additional Instructions: Your CT scans did not demonstrate an acute stroke or other etiology. The lab work is all unremarkable. You were evaluated by a neurologist in the emergency department and the recommendation was admission for an MRI and an EEG. At this time you are electing to leave the hospital and not stay for admission. It is recommended that you contact your primary care doctor tomorrow so that they can order outpatient studies and imaging to complete your workup. Please return to the emergency department with any new or worsening or persistent symptoms. You have also been referred to outpatient neurology for follow-up of these ongoing symptoms. For your PCP: Order MRI with and without contrast, EEG HPI General Date/Time Provider Initiated Documentation: 08/05/24 14:48. Limitations to Documentation: no limitations. Information obtained by: patient. HPI Narrative: 59-year-old gentleman with past medical history of bladder cancer and tobacco use presents for evaluation of neurologic symptoms. He was referred to the emergency department by his PCP. He reports that he has had symptoms 2 times over the last month. Each time he had headache following What he describes as kaleidoscope vision. He states that it looks like his eyes are underwater. He denies any double vision. He reports that the first time this occurred he had trouble with word spelling and coming up with the correct word. He reports that his last episode was 6 days ago. He reports again onset of headache followed by visual change followed by garbled speech. He states that he missed almost fell when he missed a curb and he was talking but nothing was making sense. Symptoms lasted for only a few minutes and completely resolved. He denies any facial asymmetry any weakness or sensory change. He reports that he occasionally does have headache without these other symptoms. Related Data Home Medications ?Medication ?Instructions ?Recorded ?Confirmed Unknown [No Known Home Meds] 08/05/24 08/05/24 Allergies Allergy/AdvReac Type Severity Reaction Status Date / Time No Known Allergies Allergy Verified 08/05/24 14:51 General Stated Complaint: CVA/TIA VITO: 3 Exam Narrative Exam Narrative: Review of Systems: All systems reviewed & are unremarkable except as noted in HPI and below Well-developed, no acute distress NCAT PERRL, normal conjunctiva No facial asymmetry RRR, no murmur Unlabored respiratory effort, clear bilaterally Nondistended abdomen Extremities w/o deformity, no cyanosis, no edema No rashes or lesions. no focal neurologic deficits, normal strength and sensation, normal gait Appropriate mood and affect Course Vital Signs Vital signs: Vital Signs Temperature 36.6 C 08/05/24 14:47 Pulse 103 H 08/05/24 14:47 Respiratory Rate 18 08/05/24 14:47 Blood Pressure 164/91 H 08/05/24 14:47 Pulse Oximetry 96 08/05/24 14:47 Temperature 36.6 C 08/05/24 14:47 Pulse 85 08/05/24 16:30 Pulse 87 08/05/24 16:40 Respiratory Rate 34 H 08/05/24 16:40 Respiratory Effort Normal, Non-Labored 08/05/24 15:58 Respiratory Depth Normal 08/05/24 15:58 Respiratory Pattern Normal 08/05/24 15:58 Blood Pressure 128/78 08/05/24 16:16 Blood Pressure Mean 89 08/05/24 16:16 Pulse Oximetry 95 08/05/24 16:30 Pain Level 0 08/05/24 14:47 Lab/Test Results Lab/Test Results: Laboratory Tests Range/Units 08/05/24 08/05/24 15:50 16:40 WBC (4.4-10.8) 10^3/uL 8.20 RBC (4.36-5.78) 10^6/uL 4.76 Hgb (13.5-17.5) g/dL 13.8 Hct (40.0-50.0) % 41.2 MCV (80-95) fL 87 MCH (27.0-33.0) pg 29.0 MCHC (32.0-36.0) % 33.5 RDW (11.8-14.1) % 14.6 H Plt Count (130-400) 10^3/uL 317 MPV (8.0-11.0) fL 10.0 Immature Gran % % 0.2 Neutrophils % % 42.9 Lymphocytes % % 41.5 Monocytes % % 8.9 Eosinophils % % 5.0 Basophils % % 1.5 Nucleated RBC % (0.0-0.3) % 0.0 Absolute Neutrophils (1.2-6.7) 10^3/uL 3.52 Absolute Lymphocytes (1.2-3.4) 10^3/uL 3.40 Absolute Monocytes (0.1-0.8) 10^3/uL 0.73 Absolute Eosinophils (0.0-0.7) 10^3/uL 0.41 Absolute Basophils (0.0-0.2) 10^3/uL 0.12 PT (9.1-11.1) sec 10.1 INR (0.9-1.1) 1.0 Sodium (136-145) mmol/L 138 Potassium (3.5-5.1) mmol/L 3.7 Chloride (98-107) mmol/L 103 Carbon Dioxide (21.0-32.0) mmol/L 26.6 Anion Gap (3-11) mmol/L 8.4 BUN (7-18) mg/dL 12 Creatinine (0.70-1.30) mg/dL 1.1 Est GFR (CKD-EPI 2020) (mL/min/1.73m2) 77.81 Glucose (74-106) mg/dL 92 Hemoglobin A1c (<5.7) % 5.7 Calcium (8.5-10.1) mg/dL 8.9 Magnesium (1.8-2.4) mg/dL 2.1 Total Bilirubin (0.2-1.0) mg/dL 0.4 AST (15-37) U/L 17 ALT (16-63) U/L 14 L Alkaline Phosphatase (46-116) U/L 68 Troponin I (<or=76) ng/L 7 NT-Pro-B Natriuret Pep (<300) pg/mL 71 Total Protein (6.4-8.2) g/dL 7.2 Albumin (3.4-5.0) g/dL 3.5 Urine Color (Yellow) Dark Yellow Urine Clarity (Clear) Clear Urine pH (5-8) 6.0 Ur Specific [place] (1.005-1.025) >= 1.030 H Urine Protein (Neg-Trace) mg/dL 30 H Urine Ketones (Negative) mg/dL Negative Urine Blood (Negative) Trace-intact H Urine Nitrite (Negative) Negative Urine Bilirubin (Negative) Negative Urine Urobilinogen (Up to 0.2) mg/dL 1.0 H Ur Leukocyte Esterase (Negative) Negative Urine RBC (0-2) HPF 3-5 H Urine WBC (0-5) HPF Negative Ur Epithelial Cells (Negative) HPF Rare Urine Crystals (Negative) HPF Negative Urine Bacteria (Negative) HPF Rare Urine Casts (Negative) LPF Negative Urine Mucus (Negative) Trace Ur Culture Indicated? No Urine Glucose (Negative) mg/dL Negative Urine Opiates Screen (Negative) Negative Urine Methadone Screen (Negative) Negative Ur Barbiturates Screen (Negative) Negative Ur Tricyclics Screen (Negative) Negative Ur Amphetamines Screen (Negative) Negative U Benzodiazepines Scrn (Negative) Negative Urine Cocaine Screen (Negative) Negative Ur THC Screen (Negative) Positive A Medical Decision Making Emergent evaluation of headache and neurologic change. Patient has no symptoms at this time and has a normal neurologic exam. The patient's symptoms began last occurred 6 days ago. Initial differential includes ocular migraine, complex migraine, TIA, seizure. Lab work was obtained. No leukocytosis or anemia. The patient returns normal renal function normal function. No elevation. Changes cardiac biomarkers. A CTA was obtained to evaluate foR neurovascular issue which was unremarkable. Although the patient is asymptomatic now, I am unsure if the symptoms should warrant an inpatient TIA evaluation and teleneuro watch consult was obtained. Recommendations were for an MRI with and without contrast to ensure that there are no metastatic lesions given its history of cancer to the left side given his history of malignancy in his bladder. Neurologist also considered seizure, recommended any change. I discussed the workup, findings and the plan with the patient however he states that he does drop everything and managed to the hospital. He is requesting discharge at this time. He states that he he feels like his symptoms are more likely due to stress. The patient was advised the risk of signing out AGAINST MEDICAL ADVICE. He is recommended to follow-up closely with his PCP so that he can have the outpatient test ordered and performed. Return precautions advised. I had a long discussion with the patient regarding risks, benefits, and alternatives to my recommended treatment plan, which includes hospitalization, MRI and EEG and the patient declined, voicing understanding of the risks but preferring instead to leave against medical advice. Some of the risks we specifically discussed included permanent disability or . I discussed with the patient that they were always welcome back to this department should they change their mind, and that regardless they should follow up with their primary care doctor at the soonest possible opportunity. All questions were answered and the patient left AMA in unchanged condition. Quality:SDOH Health Related Social Needs: No Data to Display PFSH All Active Problems (Updated 08/05/24 @ 19:14 by Delia Wagner MD) Visual changes (Acute) Headache (Acute) Bladder cancer (Acute) GERD (gastroesophageal reflux disease) (Chronic) Tobacco use disorder, continuous (Chronic) Medical History (Updated 08/05/24 @ 19:14 by Delia Wagner MD) MALLORY (acute kidney injury) Hematuria Bladder mass Hypertension Surgical History H/O transurethral resection of bladder tumor (TURBT) Hx of shoulder surgery right History of colonoscopy Hx of appendectomy Social History Smoking/Tobacco Use Status: Current every day Tobacco Type: cigarettes Tobacco: How many years used: 40 Smoking risk assessment performed?: Yes Alcohol Intake: never Drug use: Never Substance use type: does not use Housing: house Do you feel safe at home: Yes Do you feel safe in your relationship?: Yes Additional Social history: [employer]
--- NOTE | 2024-08-05 19:57 | NUR.NOTE ---
Patient left AMA @ 1930. Patient does not want stay in the hospital to be admitted per Dr. Wagner.
== END 2024-08-05 19:30 | disposition left against medical advice (07) ==
PROVIDERS: Emergency Provider Emergency Medicine; PCP Family Medicine
DX: H53.9 Unspecified visual disturbance (principal); I10 Essential (primary) hypertension; F17.210 Nicotine dependence, cigarettes, uncomplicated; Z85.51 Personal history of malignant neoplasm of bladder
CPT/HCPCS: 36415; 70496; 70498; 80053; 80307; 82962; 99285; 81003; 81015; 83036; 83735; 83880; 84484; 85025; 85610; 99284; J3490

== ENCOUNTER 2024-08-12 02:26 | Outpatient (CLI) | payer BC, SELFPAY ==
--- NOTE | 2024-08-12 20:57 | PDOC.EEG ---
Neurology EEG EEG: [facility] Department of Neurology EEG REPORT Date of Recordin08/12/24 Interpreting Physician: Dr. Brittany Sapp PCP/Referring Provider: Latoya Hair NP Reason for study: Ori Wolff is a 59 year-old with recent FOSTER followed by visual changes concerning for ictal headache. Current Medications: Home Medications ?Medication ?Instructions ?Recorded ?Confirmed ?Type Unknown [No Known Home Meds] 08/05/24 08/05/24 History METHODS: A 21 channel digitized electroencephalogram was performed in the [facility] Clinical Neurophysiology Laboratory. The 10/20 international system of electrode placement was used and bipolar and referential electrode montages were recorded. In addition to EEG the patient was monitored for EKG and lateral/vertical eye movements. Activation procedures of photic stimulation and hyperventilation were performed if applicable. Video was used during activation procedures and during events where applicable. The duration of the recording was 30 minutes. DESCRIPTION OF EEG: The patient was noted to be awake, drowsy, and asleep during the recording. During maximal wakefulness a 9-Hz posterior background rhythm was present which was well-modulated, symmetrical, reactive to eye opening, and of moderate voltage. With eye opening the background activity changed to a low voltage mixture of alpha, beta, and occasional theta range frequencies. Faster frequencies were present in the bilateral anterior head regions. There was a normal anterior-posterior voltage gradient. During drowsiness, there was attenuation of the posterior dominant background rhythm and vertex waves. Stage II sleep was present with symmetrical sleep spindles, K-complexes, and vertex waves. Activating Procedures: Photic stimulation was performed which produced a symmetrical posterior driving response at various flash frequencies. Hyperventilation was performed with moderate effort and produced no physiological slowing of the background. EKG: EKG revealed normal sinus rhythm. INTERPRETATION: This EEG is normal during the awake and sleep states as well as during photic stimulation and hyperventilation. PRIOR EEG: none CLINICAL CORRELATION: No focal regions of cerebral dysfunction or epileptiform activity was present. Epilepsy remains a clinical diagnosis and a normal EEG does not rule out epilepsy. Clinical correlation is advised. Brittany Sapp MD Date of service: 08/12/24
== END 2024-08-12 02:27 | disposition home or self-care (01) ==
LOC: RT 02:26
PROVIDERS: PCP Family Medicine; Visit Provider Nurse Practitioner Family
DX: R51.9 Headache, unspecified (principal)
CPT/HCPCS: 95819

== ENCOUNTER 2024-08-19 01:42 | Outpatient (CLI) | payer BC, SELFPAY ==
--- NOTE | 2024-08-19 | DI.MRI_ITS ---
Exam(s) MR BRAIN WO/W EXAM: MR BRAIN WO/W CLINICAL HISTORY: Unspecified visual disturbance, H53.9; new onset FOSTER with altered vision TECHNIQUE: Multiplanar multisequence MRI of the brain was performed. Both noninfused and contrast i nfused sequences were performed. IV Contrast injected was cc Dotarem. COMPARISON: CT CT BRAIN NECK CTA from 08/05/2024 FINDINGS: CEREBRAL PARENCHYMA: No evidence of intracranial hemorrhage, mass effect nor shift of midline structu re. No extraaxial fluid collections. Ventricles are not enlarged nor shifted. There is no significant focal signal abnormality in the cerebellar hemispheres. Tiny focus of signal abnormality in left side of the moriah is noted, nonhemorrhagic nonenhancing. No abnormal signal evid ent in the midbrain and thalami. There is, however, multiple foci sub seeing signal abnormality in the marika and supra ventricular whi te matter and also associated with the corpus callosum DWI: No areas of restricted diffusion to suggest acute ischemic event. SWI: No microhemorrhages evident. There are no ring enhancing lesions in the brain. There is no abnormal meningeal enhancement. PITUITARY GLAND: No mass nor parasellar abnormality. No obvious abnormality in the cavernous sinuses. FLOW VOIDS: The expected flow void are noted. No evidence of obvious aneurysm nor obvious vascular ma lformation. PARANASAL SINUSES: The visualized paranasal sinuses appear unremarkable. ORBITS: No obvious abnormal findings. No evidence of obvious optic neuritis. IMPRESSION: 1. There are multiple small foci of Marika in supra ventricular signal abnormality not associated with hemorrhage, surrounding edema nor enhancement following contrast injection. Although these may be re lated to chronic ischemic changes, the vertical configuration of some of these may indicate [place] fi corwiners and us an element of demyelinating disease. 2. No abnormal enhancing intracranial findings. There are no ring enhancing lesions in the brain and there is no abnormal meningeal enhancement. DATA REPOSITORY:
[2024-08-19] MEDS: Normal Saline Flush 10 ML SYR IVP (07:46)
[2024-08-19] MEDS: Gadoterate meglumine 20 ML SYRINGE 14 ML IVP (07:46)
== END 2024-08-19 02:02 ==
LOC: DI 01:42
PROVIDERS: PCP Family Medicine; Visit Provider Nurse Practitioner Family
DX: H53.9 Unspecified visual disturbance (principal); R93.89 Abnormal findings on diagnostic imaging of other specified body structures
CPT/HCPCS: 70553

== ENCOUNTER 2024-08-21 14:08 | Outpatient (REF) | payer BC, SELFPAY ==
[2024-08-21 20:49] LABS: Calculated LDL 118 mg/dL (<100); Cholesterol 183 mg/dL (<200); HDL Cholesterol 51 mg/dL (>or=40); Triglyceride 74 mg/dL (<150)
== END 2024-08-21 14:09 | disposition home or self-care (01) ==
LOC: NCHCN 14:08
PROVIDERS: PCP Family Medicine; Visit Provider Nurse Practitioner Family
DX: Z13.220 Encounter for screening for lipoid disorders (principal)
CPT/HCPCS: 80061

== ENCOUNTER 2024-10-09 08:50 | Day surgery (SDC) | payer BC, SELFPAY ==
[2024-10-09 09:13] VITALS: BP 145/85; PULSE 72; RESP 16; TEMP 36.1; O2SAT 99
[2024-10-09] MEDS: Lactated Ringers 1,000 ML 80 ML IV (09:43)
--- NOTE | 2024-10-09 09:43 | W.ANESPRE ---
General Info Date of Service Date Performed: 10/09/24 Height: 5 ft 10 in Weight: 70.6 kg Body Mass Index (BMI): 22.3 Surgical Procedure: Operation Date: 10/09/24 10:40 Proposed Procedure Side Surgeon p Cystoscopy w/Transurethral Resection Bladder Tumor Lopez Odom MD Meds Allergies and Home Medications Allergies Allergy/AdvReac Type Severity Reaction Status Date / Time No Known Allergies Allergy Verified 10/09/24 09:12 Home Medication ?Medication ?Instructions ?Recorded ipratropium 20 mcg-albuterol 100 1 puff inhalation Q6H PRN 09/10/24 mcg/actuation mist for inhalation (Combivent Respimat) Current Visit Medications: Current Medications Generic Name Dose Route Start Last Admin Trade Name Freq PRN Reason Stop Dose Admin Ringer's Solution 1,000 mls @ 80 mls/hr 10/09/24 06:00 IV 11/07/24 23:59 INFUSION HAYDEN Cefazolin Sodium/Dextrose 2 gm in 50 mls @ 100 mls/hr 10/09/24 06:00 Ancef Duplex IVPB 11/07/24 23:59 PREOP HAYDEN IV Miscellaneous Supplies 1 each 10/09/24 06:00 Iv Access IV 11/07/24 23:59 DIRECTED HAYDEN Sodium Chloride 0 ml 10/09/24 06:00 Normal Saline Flush 10 Ml Syr IV 11/07/24 23:59 PRN PRN Sodium Chloride 0 ml 10/09/24 06:00 Normal Saline 10 Ml Vial IJ 11/07/24 23:59 DIRECTED PRN Sterile Water 0 ml 10/09/24 06:00 Water,Injection,Sterile 10 Ml Vial IJ 11/07/24 23:59 DIRECTED PRN PFSH Active Problems Active Problems: Problem Status Onset Code Bladder cancer Acute C67.9 GERD (gastroesophageal reflux disease) Chronic K21.9 Tobacco use disorder, continuous Chronic F17.209 Medical History Medical History MALLORY (acute kidney injury) Hematuria Bladder mass Hypertension Surgical History Surgical History H/O transurethral resection of bladder tumor (TURBT) Hx of shoulder surgery right History of colonoscopy Hx of appendectomy Tobacco Smoking/Tobacco Use Status: Current every day Tobacco Type: cigarettes Passive smoking exposure: Yes Alcohol Alcohol Intake: never Substance Use Substance use: Never Substance use type: does not use Vital Signs and Lab Results Vital Signs Most Recent Vital Signs in EMR: Most Recent Vital Signs Temp Pulse Resp BP Pulse Ox 36.1 C L 72 16 145/85 H 99 10/09/24 09:13 10/09/24 09:13 10/09/24 09:13 10/09/24 09:13 10/09/24 09:13 Imaging and Studies Imaging and Studies Study information below may be from another EMR and interpreted by another provider. Please see original notes in EMR for more complete details. EKG Summary: 08/02/23: Exam: Resting ECG Reason for Exam: epigstric pain, smoker Patient Location: I HR:61 bpm ECG Measurements Heart Rate 61 AXIS AK 148 P 63 QRSd 67 QRS 50 QT 368 T51 QTc 371 Conclusion Sinus rhythm...normal P axis, V-rate 50- 99 Normal Electrocardiogram Anesthesia Assessment and Plan Anesthesia History Personal History: No History of Anesthesia Complications Family History: No Family History of Anesthesia Complications Exercise Tolerance Exercise Tolerance: Metabolic Equivalents>4 Pertinent Negatives Pertinent Negatives: No Major Cardiovascular Symptoms or Complaints and No Major Pulmonary Symptoms or Complaints Cardiac & Pulmonary Exam Cardiac Exam: Normal S1/S2 Heart Sounds Pulmonary Exam: Clear Bilateral Breath Sounds Implantable Cardiac Device Does patient have a Pacemaker or an ICD?: No Airway Exam Known Difficult Airway: No Mallampati Class: 1 Mouth Opening: Normal (> 3cm) Thyromental Distance: Greater than 3 cm Neck Range of Motion: Full ROM Neck Circumference: Normal Teeth Condition: Removable Dentures/Plates Upper (left in place), Removable Dentures/Plates Lower and Edentulous ASA Classification ASA Score: ASA 2 Emergency Case?: No NPO Status NPO Status: NPO Clears >2 hours, Solids >8 hours Anesthesia Plan Resuscitation Status: Full Code Anesthesia Technique: General Anesthesia Airway Planned: Natural Airway Monitors Used: Standard Monitors
--- NOTE | 2024-10-09 11:31 | W.PM.HP.N ---
Date of service: 10/09/24 Time of Service: 11:31 Assessment and Plan Assessment and plan (1) Bladder cancer: Status: Acute Assessment and plan: We will plan for a cystoscopy and transurethral resection of his visible tumor. His follow-up will depend on his surgical pathology. History of Present Illness History of Present Illness Chief Complaint: Bladder cancer Narrative: This is a 59-year-old gentleman who has a history of high-grade, noninvasive urothelial cell carcinoma of the bladder. He has had transurethral resection of his bladder tumor followed by an induction series of gemcitabine. He then had a tumor recurrence (again, high-grade noninvasive urothelial cell carcinoma) and he received an induction series of intravesical BCG. On follow-up, we found recurrent tumors. We were unable to secure BCG plus alpha interferon, so he elected observation alone. On surveillance cystoscopy, we found a small recurrence just at the bladder neck. He presents for cystoscopy and transurethral resection. Review of Systems Narrative: No fevers or chills No vision change or dysphasia No diabetes or thyroid dysfunction No shortness of breath, cough or hemoptysis No chest pain or palpitations GERD. No nausea, vomiting, hepatitis, ulcers, jaundice No seizures, strokes or peripheral neuropathy No bleeding disorders or anemia No gout PFSH All Active Problems Bladder cancer (Acute) GERD (gastroesophageal reflux disease) (Chronic) Tobacco use disorder, continuous (Chronic) Medical History MALLORY (acute kidney injury) Hematuria Bladder mass Hypertension Surgical History H/O transurethral resection of bladder tumor (TURBT) Hx of shoulder surgery right History of colonoscopy Hx of appendectomy Social History Smoking/Tobacco Use Status: Current every day Tobacco Type: cigarettes Tobacco: How many years used: 40 Smoking risk assessment performed?: Yes Alcohol Intake: never Drug use: Never Substance use type: does not use Housing: house Do you feel safe at home: Yes Do you feel safe in your relationship?: Yes Meds Allergies and Home Medications Allergies Allergy/AdvReac Type Severity Reaction Status Date / Time No Known Allergies Allergy Verified 10/09/24 09:12 Home Medications ?Medication ?Instructions ?Recorded ?Confirmed ?Type ipratropium 20 mcg-albuterol 100 1 puff inhalation Q6H PRN 09/10/24 10/09/24 History mcg/actuation mist for inhalation (Combivent Respimat) Exam Const General: cooperative Neck Neck: supple Resp Effort & Inspection: normal respiratory effort Auscultation: clear to auscultation bilaterally Cardio Rate: regular rate Rhythm: regular rhythm GI Palpation: soft and no masses Neuro General: patient alert, patient awake and patient oriented x3 Results Last Vital Signs Temp 36.1 C L 10/09/24 09:13 Pulse 72 10/09/24 09:13 Resp 16 10/09/24 09:13 BP 145/85 H 10/09/24 09:13 Pulse Ox 99 10/09/24 09:13 Time Spent Time spent with Patient: <40 minutes Time was spent: other
[2024-10-09 11:38] VITALS: BMI 22.3
[2024-10-09] MEDS: ceFAZolin 2 GM/50 ML BAG IVPB (11:51)
[2024-10-09] MEDS: Lidocaine 2% Jelly 11 ML SYR (12:11)
--- NOTE | 2024-10-09 12:15 | BLADDER_PTH ---
PATIENT: Joaquín Wolff LOC: [facility] U#:[id number] AGE/SX: 59/M ROOM: RE10/09/[address]: Lopez Odom MD : 1965 BED: DIS: 10/09/2024 SPEC #: [id number] RECD: 10/09/24 13:02 STATUS: CHAVA REAshutosh #: [id number] OLIVIA: 10/09/24 12:[address]: Lopez Odom DEPT: Surgical Specimen RECD BY: Mary Jo Bowling ENTERED: 10/09/24 13:03 SP TYPE: Bladder OTHR DR: Wayne Hackett Tissues: 1 - BLADDER CURRETTINGS Procedures: GROSS AND MICRO LEVEL 5 Comments: [id number]
--- NOTE | 2024-10-09 12:27 | W.PM.DSUDISC ---
Date of service: 10/09/24 Discharge Plan Disposition Patient Disposition: Home Condition: Stable Discharge Details Reason For Visit: bladder tumor Attending Provider: Lopez Odom Primary Care Provider: Wayne Hackett Home Meds and New Rx's Prescriptions: No Action Combivent Respimat 20-100 mcg/actuation mist 1 puff inhalation Q6H PRN Discharge Instructions Additional Instructions: followup to discuss pathology @ 2 weeks - can be phone visit if patient and his prefer Activity:: no lifting over 10 pounds for 48 hours Shower/Bathe:: 24 hours Diet:: As Tolerated Discharge Orders Discharge Orders: Discharge Order (Routine); Ordered 10/09/24 Ordered By: Lopez Odom DS: Diagnosis Discharge Diagnosis (1) Bladder cancer: Status: Acute
[2024-10-09 12:29] VITALS: BP 122/82; PULSE 70; RESP 16; TEMP 36.7; O2SAT 96
--- NOTE | 2024-10-09 12:32 | ROE_ITS ---
Operative Note Operative Note PRE-OP DIAGNOSIS: Bladder cancer POST-OP DIAGNOSIS: same PROCEDURE: cystoscopy with transurethral rescetion bladder tumor (@ 2 to 3 cm) SURGEON: Lopez Odom ANESTHESIA TYPE: Local By Surgeon and General:No Airway Refer to Anesthesia Record ESTIMATED BLOOD LOSS: 5 PATHOLOGY: other (bladder tumor) COMPLICATIONS: None Patient was transported to: same day Patient's condition: stable Implants: none Indications: This is a 59-year-old gentleman who has a history of noninvasive urothelial cell carcinoma which is recurred and spite of intravesical BCG and intravesical gemcitabine treatments. On his most recent surveillance cystoscopy, we found another recurrence at the bladder neck. He comes in for transurethral resection Findings: 2 to 3 cm papillary lesion right bladder neck Procedure Description: The patient was given antibiotics and brought to the operating room on 10/09/2024. After successful induction of general anesthesia, he was placed in the dorsal lithotomy position. His genitalia was prepped with Betadine. 2% Xylocaine jelly was instilled into the urethra to act as a local anesthetic. A 24 Turkish resectoscope sheath was passed through the urethra into the bladder. The bladder was inspected with a 30 degree lens. On the posterior bladder wall, there were 2 erythematous patches of mucosa that were previously identified on cystoscopy. At the bladder neck, there was a 2 to 3 cm papillary lesion on the right side. We used bipolar cautery and an Ayers resectoscope to resect the visible tumor at the bladder neck. We cauterized the resection site. We also cauterized the erythematous tissue posteriorly. At the completion of the procedure, no active bleeding was identified. The resectoscope was removed. All resected tissue was sent to pathology for permanent section. The patient tolerated this procedure well with no complications. Date of Procedure: 10/09/24
[2024-10-09 13:01] VITALS: BP 122/91; PULSE 62; RESP 16; TEMP 35.9; O2SAT 99
--- NOTE | 2024-10-09 13:03 | W.ANESPOSTOP ---
Postoperative Evaluation Date, Time and Location Date Performed: 10/09/24 Time Performed: 12:29 Patient Location: Day Surgery Unit Vital Signs Most Recent Imported Vital Signs: Most Recent Vital Signs Temp Pulse Resp BP Pulse Ox 35.9 C L 62 16 122/91 H 99 10/09/24 13:01 10/09/24 13:01 10/09/24 13:01 10/09/24 13:01 10/09/24 13:01 Pain Score Most Recent Pain Score: Most Recent Pain Score Pain Level 0 10/09/24 13:01 Assessment Mental Status: Awake (Alert & Oriented to Patient Baseline) Airway and Respiratory Function: Patent airway with normal (patient baseline) respiratory exam Cardiovascular Function: Hemodynamically Stable Hydration Status: Adequately Hydrated Nausea & Vomiting: No Nausea or Vomiting Pain: Pt. Denies Any Pain Peripheral Nerve Block: Patient did not receive a nerve block
[2024-10-09] MEDS: Phenazopyridine 200 MG TAB PO (13:35)
== END 2024-10-09 13:40 | disposition home or self-care (01) ==
PROVIDERS: PCP Family Medicine; Visit Provider Urology
PROC: 0TBB8ZZ Excision of Bladder, Via Natural or Artificial Opening Endoscopic (ICD-10-PCS; CPT 52235; principal; 2024-10-09 10:30)
DX: C67.5 Malignant neoplasm of bladder neck (principal); F17.210 Nicotine dependence, cigarettes, uncomplicated; I10 Essential (primary) hypertension
CPT/HCPCS: 52235; 52224; 88307; J0690; J1100; J1885; J2003; J2250; J2405; J2704; J3010

== ENCOUNTER 2025-03-02 09:06 | Day surgery (SDC) | payer BC, SELFPAY ==
[2025-03-02 09:30] VITALS: BP 164/100; PULSE 75; RESP 16; TEMP 35.8; O2SAT 100
[2025-03-02] MEDS: Lactated Ringers 1,000 ML 80 ML IV (09:55)
[2025-03-02 10:41] VITALS: BMI 23.5
--- NOTE | 2025-03-02 10:41 | W.ANESPRE ---
General Info Date of Service Date Performed: 03/02/25 Height: 5 ft 10 in Weight: 74.4 kg Body Mass Index (BMI): 23.5 Surgical Procedure: Operation Date: 03/02/25 11:25 Proposed Procedure Side Surgeon p Cystoscopy with Bladder Biopsy, Fulgeration Lopez Odom MD Meds Allergies and Home Medications Allergies Allergy/AdvReac Type Severity Reaction Status Date / Time No Known Allergies Allergy Verified 03/02/25 09:26 Home Medication ?Medication ?Instructions ?Recorded ivermectin 6 mg tablet 6 mg PO DAILY 11/25/24 aspirin 81 mg tablet 81 mg PO DAILY 02/20/25 Current Visit Medications: Current Medications Generic Name Dose Route Start Last Admin Trade Name Freq PRN Reason Stop Dose Admin Ringer's Solution 1,000 mls @ 80 mls/hr 03/02/25 06:00 03/02/25 09:55 IV 03/29/25 23:59 80 mls/hr INFUSION HAYDEN Administration Cefazolin Sodium/Dextrose 2 gm in 50 mls @ 100 mls/hr 03/02/25 06:00 Ancef Duplex IVPB 03/29/25 23:59 PREOP HAYDEN Sodium Chloride 0 ml 03/02/25 06:00 Normal Saline Flush 10 Ml Syr IV 03/29/25 23:59 PRN PRN Sodium Chloride 0 ml 03/02/25 06:00 Normal Saline 10 Ml Vial IJ 03/29/25 23:59 DIRECTED PRN Sterile Water 0 ml 03/02/25 06:00 Water,Injection,Sterile 10 Ml Vial IJ 03/29/25 23:59 DIRECTED PRN PFSH Active Problems Active Problems: Problem Status Onset Code TIA (transient ischemic attack) Acute G45.9 Bladder cancer Acute C67.9 GERD (gastroesophageal reflux disease) Chronic K21.9 Tobacco use disorder, continuous Chronic F17.209 Medical History Medical History MALLORY (acute kidney injury) Hematuria Bladder mass Hypertension Surgical History Surgical History H/O transurethral resection of bladder tumor (TURBT) Hx of shoulder surgery right History of colonoscopy Hx of appendectomy Tobacco Smoking/Tobacco Use Status: Current every day Tobacco Type: cigarettes Passive smoking exposure: Yes Alcohol Alcohol Intake: current Alcohol intake frequency: a few times a month Substance Use Substance use: Never Substance use type: does not use Details: alcohol: t-7. Cigarettes- t Vital Signs and Lab Results Vital Signs Most Recent Vital Signs in EMR: Most Recent Vital Signs Temp Pulse Resp BP Pulse Ox 35.8 C L 75 16 164/100 H 100 03/02/25 09:30 03/02/25 09:30 03/02/25 09:30 03/02/25 09:30 03/02/25 09:30 Imaging and Studies Imaging and Studies Study information below may be from another EMR and interpreted by another provider. Please see original notes in EMR for more complete details. EKG Summary: 08/02/23: Exam: Resting ECG Reason for Exam: epigstric pain, smoker Patient Location: I HR:61 bpm ECG Measurements Heart Rate 61 AXIS OH 148 P 63 QRSd 67 QRS 50 QT 368 T51 QTc 371 Conclusion Sinus rhythm...normal P axis, V-rate 50- 99 Normal Electrocardiogram Anesthesia Assessment and Plan Anesthesia History Personal History: No History of Anesthesia Complications Family History: No Family History of Anesthesia Complications Exercise Tolerance Exercise Tolerance: Metabolic Equivalents>4 Pertinent Negatives Pertinent Negatives: No Major Cardiovascular Symptoms or Complaints and No Major Pulmonary Symptoms or Complaints Cardiac & Pulmonary Exam Cardiac Exam: Normal S1/S2 Heart Sounds Pulmonary Exam: Clear Bilateral Breath Sounds Implantable Cardiac Device Does patient have a Pacemaker or an ICD?: No Airway Exam Known Difficult Airway: No Mallampati Class: 1 Mouth Opening: Normal (> 3cm) Thyromental Distance: Greater than 3 cm Neck Range of Motion: Full ROM Neck Circumference: Normal Teeth Condition: Removable Dentures/Plates Upper (left in place), Removable Dentures/Plates Lower and Edentulous ASA Classification ASA Score: ASA 2 Emergency Case?: No NPO Status NPO Status: NPO Clears >2 hours, Solids >8 hours Anesthesia Plan Resuscitation Status: Full Code Anesthesia Technique: General Anesthesia Airway Planned: Natural Airway Monitors Used: Standard Monitors
--- NOTE | 2025-03-02 11:16 | W.PM.HP.N ---
Date of service: 03/02/25 Time of Service: 11:16 Assessment and Plan Assessment and plan (1) Bladder cancer: Status: Acute Assessment and plan: We will do a cystoscopy/biopsy and fulguration of the visible tumor. History of Present Illness History of Present Illness Chief Complaint: Bladder cancer Narrative: This is a 59-year-old gentleman who has a history of high-grade, noninvasive urothelial cell carcinoma of the bladder. He has had transurethral resection of his bladder tumor followed by an induction series of gemcitabine. He then had a tumor recurrence (again, high-grade noninvasive urothelial cell carcinoma) and he received an induction series of intravesical BCG. On follow-up, we found recurrent tumors. We were unable to secure BCG plus alpha interferon, so he elected observation alone. On his most recent surveillance cystoscopy, we found a very small tumor recurrence up toward the dome. He has not had any gross hematuria. He has no dysuria. Review of Systems Narrative: No fevers or chills No vision change or dysphasia No diabetes or thyroid dysfunction No shortness of breath, cough or hemoptysis No chest pain or palpitations GERD. No hepatitis, ulcers, jaundice, diarrhea or constipation TIA. No seizures or peripheral neuropathy No bleeding disorders or anemia No gout PFSH All Active Problems TIA (transient ischemic attack) (Acute) Bladder cancer (Acute) GERD (gastroesophageal reflux disease) (Chronic) Tobacco use disorder, continuous (Chronic) Medical History MALLORY (acute kidney injury) Hematuria Bladder mass Hypertension Surgical History H/O transurethral resection of bladder tumor (TURBT) Hx of shoulder surgery right History of colonoscopy Hx of appendectomy Social History Smoking/Tobacco Use Status: Current every day Tobacco Type: cigarettes Tobacco: How many years used: 40 Smoking risk assessment performed?: Yes Alcohol Intake: current Alcohol Intake frequency: a few times a month Drug use: Never Substance use type: does not use Details: alcohol: t-7. Cigarettes- t Housing: house Do you feel safe at home: Yes Do you feel safe in your relationship?: Yes Additional Social history: [facility] Allergies and Home Medications Allergies Allergy/AdvReac Type Severity Reaction Status Date / Time No Known Allergies Allergy Verified 03/02/25 09:26 Home Medications ?Medication ?Instructions ?Recorded ?Confirmed ?Type ivermectin 6 mg tablet 6 mg PO DAILY 11/25/24 03/02/25 History aspirin 81 mg tablet 81 mg PO DAILY 02/20/25 03/02/25 History Exam Const General: cooperative Neck Neck: supple Resp Effort & Inspection: normal respiratory effort Auscultation: clear to auscultation bilaterally Cardio Rate: regular rate Rhythm: regular rhythm GI Palpation: soft and no masses Neuro General: patient alert, patient awake and patient oriented x3 Results Last Vital Signs Temp 35.8 C L 03/02/25 09:30 Pulse 75 03/02/25 09:30 Resp 16 03/02/25 09:30 BP 164/100 H 03/02/25 09:30 Pulse Ox 100 03/02/25 09:30 VTE Prohylaxis Risk Level: Moderate/High Risk Contraindications: None Prophylaxis: Mechanical Time Spent Time spent with Patient: <40 minutes Time was spent: other
[2025-03-02] MEDS: ceFAZolin 2 GM/50 ML BAG IVPB (11:38)
[2025-03-02] MEDS: Lidocaine 2% Jelly 11 ML SYR (11:53)
--- NOTE | 2025-03-02 12:00 | BLADDER_PTH ---
PATIENT: Joaquín Wolff LOC: [facility] U#:[id number] AGE/SX: 59/M ROOM: RE03/02/[address]: Lopez Odom MD : [id number] BED: DIS: 03/02/2025 SPEC #: [id number] RECD: 03/02/25 12:56 STATUS: CHAVA RE #: [id number] OLIVIA: 03/02/25 12:[address]: Lopez Odom DEPT: Surgical Specimen RECD BY: Mary Jo Bowling ENTERED: 03/02/25 12:57 SP TYPE: Bladder OTHR DR: Wayne Hackett Tissues: 1 - BLADDER BIOPSY Procedures: GROSS AND MICRO LEVEL 4 Comments: [id number]
[2025-03-02 12:13] VITALS: BP 97/69; PULSE 71; RESP 18; TEMP 36.2; O2SAT 97
--- NOTE | 2025-03-02 12:15 | W.PM.DSUDISC ---
Date of service: 03/02/25 Discharge Plan Disposition Patient Disposition: Home Condition: Stable Discharge Details Reason For Visit: cystoscopy and bladder biopsy Attending Provider: Lopez Odom Primary Care Provider: Wayne Hackett Home Meds and New Rx's Prescriptions: No Action ivermectin 6 mg tablet 6 mg PO DAILY Rx Instructions: as a single dose aspirin 81 mg tablet 81 mg PO DAILY Discharge Instructions Additional Instructions: followup 2 weeks for pathology results Stand Alone Forms: Anesthesia Discharge Inst., [facility] ([facility]), Portal Information Activity:: Activity as Tolerated Shower/Bathe:: 24 hours Diet:: As Tolerated Discharge Orders Discharge Orders: Discharge Order (Routine); Ordered 03/02/25 Ordered By: Lopez Odom DS: Diagnosis Discharge Diagnosis (1) Bladder cancer: Status: Acute
--- NOTE | 2025-03-02 12:16 | ROE_ITS ---
Operative Note Operative Note PRE-OP DIAGNOSIS: bladder cancer POST-OP DIAGNOSIS: same PROCEDURE: cystoscopy, bladder biopsy with fulguration of bladder tumor SURGEON: Lopez Odom ANESTHESIA TYPE: Local By Surgeon and General:No Airway Refer to Anesthesia Record ESTIMATED BLOOD LOSS: 5 PATHOLOGY: other (bladder tumor) COMPLICATIONS: None Patient was transported to: same day Patient's condition: stable Implants: none Indications: This is a 59-year-old gentleman who has a history of urothelial cell carcinoma of the bladder. His tumors have been high-grade but noninvasive urothelial cell carcinoma. He was treated with an induction series of intravesical gemcitabine (BCG was not available to us). He has had subsequent recurrence but elected not to repeat his intravesical treatments. On his recent surveillance cystoscopy, we found a small recurrence. He presents for biopsy and fulguration of the area Findings: Shaggy erythematous mucosa posteriorly Procedure Description: The patient was given IV antibiotics and brought to the operating room on 03/02/2025. After successful induction of general anesthesia, she was placed in the dorsal lithotomy position. His genitalia was prepped and draped. 2% Xylocaine jelly was instilled into the urethra. The 22 [place] rigid cystoscope was then passed through the urethra into the bladder. The bladder was inspected using both a 30 and a 70 degree lens. The pendulous, bulbar and membranous urethra appeared normal with only a mild strictured area just distal to the external sphincter. The prostatic urethra did not show any obvious papillary lesions. The bladder neck was entered and the bladder mucosa was inspected. Both ureteral orifices were visualized. The right ureteral orifice appeared completely normal. There was a large scar on the left lateral wall of the bladder adjacent to the left ureteral orifice. No papillary lesions were seen adjacent to the left sided scar. On the posterior bladder wall, there was a 2 cm patch of papillary, erythematous mucosa concerning for recurrence of his tumor. The area was biopsied with cold cup biopsy forceps. The biopsies were sent to pathology for permanent section. We then utilized a bipolar Bugbee electrode to cauterize the biopsy site and all of the remaining erythematous mucosa. An additional papillary lesion at the dome of the bladder was cauterized with the Bugbee electrode as well. Hemostasis appeared quite good. The bladder was emptied and the cystoscope was withdrawn. The patient tolerated the procedure well with no complications. He was taken back to the day surgery unit in stable condition. Date of Procedure: 03/02/25
[2025-03-02] MEDS: Phenazopyridine 200 MG TAB PO (12:35)
--- NOTE | 2025-03-02 12:35 | W.ANESPOSTOP ---
Postoperative Evaluation Date, Time and Location Date Performed: 03/02/25 Time Performed: 12:35 Patient Location: Day Surgery Unit Vital Signs Most Recent Imported Vital Signs: Most Recent Vital Signs Temp Pulse Resp BP Pulse Ox 36.2 C L 71 18 97/69 L 97 03/02/25 12:13 03/02/25 12:13 03/02/25 12:13 03/02/25 12:13 03/02/25 12:13 Pain Score Most Recent Pain Score: Most Recent Pain Score Pain Level 0 03/02/25 12:13 Assessment Mental Status: Awake (Alert & Oriented to Patient Baseline) Airway and Respiratory Function: Patent airway with normal (patient baseline) respiratory exam Cardiovascular Function: Hemodynamically Stable Hydration Status: Adequately Hydrated Nausea & Vomiting: No Nausea or Vomiting Pain: Pt. Denies Any Pain Peripheral Nerve Block: Patient did not receive a nerve block
[2025-03-02 12:46] VITALS: BP 123/78; PULSE 68; RESP 16; TEMP 36.2; O2SAT 98
== END 2025-03-02 13:07 | disposition home or self-care (01) ==
PROVIDERS: PCP Family Medicine; Visit Provider Urology
PROC: 0TBB8ZX Excision of Bladder, Via Natural or Artificial Opening Endoscopic, Diagnostic (ICD-10-PCS; CPT 52204; principal; 2025-03-02 11:15)
DX: C67.4 Malignant neoplasm of posterior wall of bladder (principal)
CPT/HCPCS: 52204; 88305; J0131; J0690; J2704; J3010